=== PATIENT | male | born 1960 | race Caucasian/White ===

== ENCOUNTER 2020-03-17 11:18 | Outpatient (REF) | payer OTHER, SELFPAY ==
[2020-03-17 14:14] LABS: Estimated Average Glucose 143 mg/dL; Hemoglobin A1c % 6.6 %
[2020-03-17 14:18] LABS: Glucose Fasting 153 mg/dL (60-99)
== END 2020-03-17 11:19 | disposition home or self-care (01) ==
LOC: HO.10HDL 11:18
PROVIDERS: Visit Provider Family Medicine
DX: E11.9 Type 2 diabetes mellitus without complications (principal)
CPT/HCPCS: 82947; 83036

== ENCOUNTER → 2020-04-15 08:04 | Outpatient (BNVA) | payer OTHER, SELFPAY | PROVIDERS: PCP Family Medicine; Referring Provider Family Medicine; Visit Provider Internal Medicine Endocrinology, Diabetes & Metabolism | DX: Z13.89 Encounter for screening for other disorder (principal) | CPT/HCPCS: Q3014 ==

== ENCOUNTER 2020-05-20 10:41 | Outpatient (REF) | payer OTHER, SELFPAY ==
[2020-05-20 14:40] LABS: Anion Gap 15 (12-20); Blood Urea Nitrogen 16 mg/dL (9-16); Carbon Dioxide 24 mmol/L (22-29); Chloride 102 mmol/L (96-108); Estimated Glomerular Filt Rate > 60; Potassium 4.7 mmol/l (3.3-5.1); Sodium 136 mmol/L (135-145)
== END 2020-05-20 10:42 | disposition home or self-care (01) ==
LOC: HO.10HDL 10:41
PROVIDERS: Absent Provider Internal Medicine Cardiovascular Disease; PCP Family Medicine; Visit Provider Family Medicine
DX: I10 Essential (primary) hypertension (principal)
CPT/HCPCS: 36415; 80051; 82565; 84520

== ENCOUNTER 2020-07-14 09:55 | Outpatient (REF) | payer OTHER, SELFPAY ==
[2020-07-14 11:37] LABS: Alanine Aminotransferase 38 U/L (0-40); Albumin Level 4.1 g/dL (3.5-5.0); Alkaline Phosphatase 74 U/L (39-117); Anion Gap 12 (12-20); Aspartate Amino Transferase 28 U/L (5-37); Bilirubin Total 0.5 mg/dL (0.0-1.0); Blood Urea Nitrogen 16 mg/dL (9-16); Calcium 8.6 mg/dL (8.4-10.2); Carbon Dioxide 25 mmol/L (22-29); Chloride 105 mmol/L (96-108); Cholesterol 156 mg/dL; Estimated Glomerular Filt Rate > 60; Glucose Fasting 183 mg/dL (60-99); HDL Cholesterol 29 mg/dL; Potassium 4.4 mmol/L (3.3-5.1); Sodium 138 mmol/L (135-145); Total Protein 6.8 g/dL (6.5-8.0); Triglycerides 519 mg/dL
[2020-07-15 21:12] LABS: LDL Cholesterol Direct 47 mg/dL (<100)
== END 2020-07-14 09:56 | disposition home or self-care (01) ==
LOC: HO.10HDL 09:55
PROVIDERS: Visit Provider Internal Medicine Endocrinology, Diabetes & Metabolism
DX: E11.9 Type 2 diabetes mellitus without complications (principal)
CPT/HCPCS: 36415; 80053; 80061; 83721

== ENCOUNTER → 2020-07-15 09:52 | Outpatient (BNVA) | payer OTHER, SELFPAY | PROVIDERS: PCP Family Medicine; Visit Provider Internal Medicine Endocrinology, Diabetes & Metabolism | DX: E11.40 Type 2 diabetes mellitus with diabetic neuropathy, unspecified (principal); E11.21 Type 2 diabetes mellitus with diabetic nephropathy; Z79.4 Long term (current) use of insulin; E78.5 Hyperlipidemia, unspecified; E66.9 Obesity, unspecified | CPT/HCPCS: 82947; 99212 ==

== ENCOUNTER → 2020-10-15 09:52 | Outpatient (BNVA) | payer OTHER, SELFPAY | PROVIDERS: PCP Family Medicine; Visit Provider Internal Medicine Endocrinology, Diabetes & Metabolism | DX: E11.65 Type 2 diabetes mellitus with hyperglycemia (principal); E11.42 Type 2 diabetes mellitus with diabetic polyneuropathy; E11.21 Type 2 diabetes mellitus with diabetic nephropathy; E78.5 Hyperlipidemia, unspecified; E66.9 Obesity, unspecified; Z79.4 Long term (current) use of insulin | CPT/HCPCS: 82947; 99212 ==

== ENCOUNTER 2021-01-10 07:12 | Outpatient (REF) | payer OTHER, SELFPAY ==
[2021-01-10 08:21] LABS: Alanine Aminotransferase 35 U/L (0-40); Anion Gap 11 (12-20); Blood Urea Nitrogen 15 mg/dL (9-16); Carbon Dioxide 26 mmol/L (22-29); Chloride 106 mmol/L (96-108); Estimated Glomerular Filt Rate > 60; Glucose Fasting 171 mg/dL (60-99); Potassium 4.2 mmol/L (3.3-5.1); Sodium 139 mmol/L (135-145)
[2021-01-10 08:32] LABS: Estimated Average Glucose 197 mg/dL; Hemoglobin A1c % 8.5 %
== END 2021-01-10 07:13 | disposition home or self-care (01) ==
LOC: HO.LAB 07:12
PROVIDERS: PCP Family Medicine; Visit Provider Family Medicine
DX: E11.9 Type 2 diabetes mellitus without complications (principal); I10 Essential (primary) hypertension; E78.00 Pure hypercholesterolemia, unspecified; Z79.899 Other long term (current) drug therapy
CPT/HCPCS: 36415; 80051; 82565; 82947; 83036; 84460; 84520

== ENCOUNTER → 2021-01-22 10:03 | Outpatient (BNVA) | payer OTHER, SELFPAY | PROVIDERS: PCP Family Medicine; Visit Provider Nurse Practitioner Gerontology | DX: E11.65 Type 2 diabetes mellitus with hyperglycemia (principal); E11.42 Type 2 diabetes mellitus with diabetic polyneuropathy; E11.21 Type 2 diabetes mellitus with diabetic nephropathy; E78.5 Hyperlipidemia, unspecified; E66.9 Obesity, unspecified; Z79.4 Long term (current) use of insulin | CPT/HCPCS: 82947; 99212 ==

== ENCOUNTER → 2021-02-12 10:36 | Outpatient (BNVA) | payer OTHER, SELFPAY | PROVIDERS: PCP Family Medicine; Visit Provider Dietitian, Registered | DX: E11.42 Type 2 diabetes mellitus with diabetic polyneuropathy (principal) | CPT/HCPCS: 97803 ==

== ENCOUNTER → 2021-03-26 11:31 | Outpatient (BNVA) | payer OTHER, SELFPAY | PROVIDERS: PCP Family Medicine; Visit Provider Dietitian, Registered | DX: E11.42 Type 2 diabetes mellitus with diabetic polyneuropathy (principal) | CPT/HCPCS: 97803 ==

== ENCOUNTER 2021-04-18 16:28 | Emergency (ER) | payer OTHER, SELFPAY ==
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
[2021-04-18 17:11] VITALS: BP 160/92; PULSE 94
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
[2021-04-18 17:33] VITALS: PULSE 83; RESP 20; O2SAT 97; BMI 36.4
[2021-04-18] MEDS: LORazepam 1 MG TABLET PO (17:54)
== END 2021-04-18 18:41 | disposition home or self-care (01) ==
LOC: HO.ED 18:34
PROVIDERS: Emergency Provider Internal Medicine; PCP Family Medicine
DX: S09.90XA Unspecified injury of head, initial encounter (principal); S13.4XXA Sprain of ligaments of cervical spine, initial encounter; V43.52XA Car driver injured in collision with other type car in traffic accident, initial encounter; Y93.89 Activity, other specified; Y92.414 Local residential or business street as the place of occurrence of the external cause; Y99.9 Unspecified external cause status
CPT/HCPCS: 70450; 72125; 99283; 99284

== ENCOUNTER 2021-06-10 10:34 | Outpatient (REF) | payer OTHER, SELFPAY ==
[2021-06-10 14:50] LABS: Creatinine Urine 198.83 mg/dL
[2021-06-10 15:01] LABS: Alanine Aminotransferase 35 U/L (0-40); Albumin Level 4.3 g/dL (3.5-5.0); Alkaline Phosphatase 85 U/L (39-117); Anion Gap 15 (12-20); Aspartate Amino Transferase 32 U/L (5-37); Bilirubin Total 0.2 mg/dL (0.0-1.0); Blood Urea Nitrogen 17 mg/dL (9-16); Calcium 9.5 mg/dL (8.4-10.2); Carbon Dioxide 22 mmol/L (22-29); Chloride 106 mmol/L (96-108); Cholesterol 153 mg/dL; Estimated Glomerular Filt Rate > 60; Glucose Fasting 208 mg/dL (60-99); HDL Cholesterol 27 mg/dL; Potassium 4.3 mmol/L (3.3-5.1); Sodium 139 mmol/L (135-145); Total Protein 7.4 g/dL (6.5-8.0); Triglycerides 452 mg/dL
[2021-06-10 15:06] LABS: Microalbum/Creatinine Ratio Ur 591.9 ug/mg cr
[2021-06-11 03:07] LABS: LDL Cholesterol Direct 48 mg/dL (<100)
== END 2021-06-10 10:35 | disposition home or self-care (01) ==
LOC: HO.10HDL 10:34
PROVIDERS: Visit Provider Nurse Practitioner Gerontology
DX: E11.65 Type 2 diabetes mellitus with hyperglycemia (principal); E78.5 Hyperlipidemia, unspecified; E55.9 Vitamin D deficiency, unspecified; I10 Essential (primary) hypertension; Z79.4 Long term (current) use of insulin
CPT/HCPCS: 36415; 80053; 80061; 82043; 82947; 83036; 83721; 99212

== ENCOUNTER → 2021-06-26 10:29 | Outpatient (BNVA) | payer OTHER, SELFPAY | PROVIDERS: PCP Family Medicine; Visit Provider Dietitian, Registered | DX: E11.42 Type 2 diabetes mellitus with diabetic polyneuropathy (principal); Z71.3 Dietary counseling and surveillance | CPT/HCPCS: 97803 ==

== ENCOUNTER 2021-07-20 12:30 | Outpatient (REF) | payer OTHER, SELFPAY ==
[2021-07-20 14:42] LABS: Alanine Aminotransferase 37 U/L (0-40); Anion Gap 12 (12-20); Aspartate Amino Transferase 38 U/L (5-37); Blood Urea Nitrogen 12 mg/dL (9-16); Carbon Dioxide 26 mmol/L (22-29); Chloride 105 mmol/L (96-108); Estimated Glomerular Filt Rate > 60; Potassium 4.4 mmol/L (3.3-5.1); Sodium 139 mmol/L (135-145)
== END 2021-07-20 12:31 | disposition home or self-care (01) ==
LOC: HO.10HDL 12:30
PROVIDERS: Visit Provider Family Medicine
DX: I10 Essential (primary) hypertension (principal); E78.00 Pure hypercholesterolemia, unspecified; Z79.899 Other long term (current) drug therapy
CPT/HCPCS: 36415; 80051; 82550; 82565; 84450; 84460; 84520

== ENCOUNTER 2021-09-09 08:54 | Outpatient (REF) | payer OTHER, SELFPAY ==
[2021-09-09 11:07] LABS: Estimated Average Glucose 214 mg/dL; Hemoglobin A1c % 9.1 %
[2021-09-09 11:09] LABS: Alanine Aminotransferase 27 U/L (0-40); Albumin Level 4.2 g/dL (3.5-5.0); Alkaline Phosphatase 86 U/L (39-117); Anion Gap 10 (12-20); Aspartate Amino Transferase 25 U/L (5-37); Bilirubin Total 0.3 mg/dL (0.0-1.0); Blood Urea Nitrogen 15 mg/dL (9-16); Calcium 8.5 mg/dL (8.4-10.2); Carbon Dioxide 22 mmol/L (22-29); Chloride 106 mmol/L (96-108); Cholesterol 137 mg/dL; Estimated Glomerular Filt Rate > 60; Glucose Random 215 mg/dL (60-115); HDL Cholesterol 31 mg/dL; LDL Cholesterol Calculated 67 mg/dl; Potassium 4.4 mmol/L (3.3-5.1); Sodium 134 mmol/L (135-145); Triglycerides 199 mg/dL
[2021-09-09 11:31] LABS: Vitamin D 25-OH Total 20.7 ng/mL (>30)
[2021-09-09 12:55] LABS: Creatinine Urine 191.91 mg/dL; Microalbum/Creatinine Ratio Ur 121.4 ug/mg cr
[2021-09-11 01:41] LABS: LDL Cholesterol Direct 74 mg/dL (<100)
== END 2021-09-09 08:55 | disposition home or self-care (01) ==
LOC: HO.10HDL 08:54
PROVIDERS: Internal Medicine; PCP Family Medicine; Visit Provider Nurse Practitioner Gerontology
DX: E11.65 Type 2 diabetes mellitus with hyperglycemia (principal); E11.42 Type 2 diabetes mellitus with diabetic polyneuropathy; E11.21 Type 2 diabetes mellitus with diabetic nephropathy; E78.5 Hyperlipidemia, unspecified; E66.9 Obesity, unspecified; Z79.4 Long term (current) use of insulin
CPT/HCPCS: 36415; 80053; 80061; 82043; 82306; 82947; 83036; 83721; 99212

== ENCOUNTER → 2021-09-23 09:19 | Outpatient (BNVA) | payer OTHER, SELFPAY | PROVIDERS: PCP Family Medicine; Visit Provider Dietitian, Registered | DX: E11.42 Type 2 diabetes mellitus with diabetic polyneuropathy (principal) | CPT/HCPCS: 97803 ==

== ENCOUNTER → 2021-10-09 08:52 | Outpatient (BNVA) | payer OTHER, SELFPAY | PROVIDERS: PCP Family Medicine; Visit Provider Registered Nurse Diabetes Educator | DX: E11.65 Type 2 diabetes mellitus with hyperglycemia (principal); Z79.4 Long term (current) use of insulin | CPT/HCPCS: 99211 ==

== ENCOUNTER → 2021-10-23 09:28 | Outpatient (BNVA) | payer OTHER, SELFPAY | PROVIDERS: PCP Family Medicine; Visit Provider Registered Nurse Diabetes Educator | DX: E11.9 Type 2 diabetes mellitus without complications (principal) | CPT/HCPCS: 95250 ==

== ENCOUNTER → 2021-11-10 09:10 | Outpatient (BNVA) | payer OTHER, SELFPAY | PROVIDERS: PCP Family Medicine; Visit Provider Nurse Practitioner Gerontology | DX: E11.65 Type 2 diabetes mellitus with hyperglycemia (principal); E11.42 Type 2 diabetes mellitus with diabetic polyneuropathy; E11.21 Type 2 diabetes mellitus with diabetic nephropathy; E78.5 Hyperlipidemia, unspecified; E66.9 Obesity, unspecified; Z68.34 Body mass index [BMI] 34.0-34.9, adult; Z79.4 Long term (current) use of insulin | CPT/HCPCS: 82947; 99212 ==

== ENCOUNTER 2021-11-11 10:56 | Outpatient (REF) | payer OTHER, SELFPAY ==
[2021-11-11 13:53] LABS: Anion Gap 11 (12-20); Blood Urea Nitrogen 17 mg/dL (9-16); Calcium 8.8 mg/dL (8.4-10.2); Carbon Dioxide 25 mmol/L (22-29); Chloride 105 mmol/L (96-108); Estimated Glomerular Filt Rate > 60; Glucose Fasting 188 mg/dL (60-99); Potassium 4.4 mmol/L (3.3-5.1); Sodium 137 mmol/L (135-145)
[2021-11-13 01:52] LABS: C Peptide 2.92 ng/mL (0.80-3.85)
[2021-11-15 21:21] LABS: Glutamic acid decarboxylase Ab <5 IU/mL (<5)
[2021-11-23 22:17] LABS: Islet Cell Antibody Screen NEGATIVE (NEGATIVE)
== END 2021-11-11 10:57 | disposition home or self-care (01) ==
LOC: HO.10HDL 10:56
PROVIDERS: Visit Provider Nurse Practitioner Gerontology
DX: E11.65 Type 2 diabetes mellitus with hyperglycemia (principal)
CPT/HCPCS: 36415; 80048; 84681; 86255; 86341

== ENCOUNTER → 2021-12-24 10:24 | Outpatient (BNVA) | payer OTHER, SELFPAY | PROVIDERS: PCP Family Medicine; Visit Provider Dietitian, Registered | DX: E11.65 Type 2 diabetes mellitus with hyperglycemia (principal); E11.42 Type 2 diabetes mellitus with diabetic polyneuropathy; E11.21 Type 2 diabetes mellitus with diabetic nephropathy; Z79.4 Long term (current) use of insulin; Z71.3 Dietary counseling and surveillance | CPT/HCPCS: 97803 ==

== ENCOUNTER → 2022-01-04 10:54 | Outpatient (BNVA) | payer OTHER, SELFPAY | PROVIDERS: PCP Family Medicine; Visit Provider Registered Nurse Diabetes Educator | DX: E11.65 Type 2 diabetes mellitus with hyperglycemia (principal); E11.42 Type 2 diabetes mellitus with diabetic polyneuropathy; E11.21 Type 2 diabetes mellitus with diabetic nephropathy; I10 Essential (primary) hypertension; E78.5 Hyperlipidemia, unspecified; E55.9 Vitamin D deficiency, unspecified; E66.9 Obesity, unspecified; Z79.4 Long term (current) use of insulin | CPT/HCPCS: 99211 ==

== ENCOUNTER → 2022-02-01 09:30 | Outpatient (BNVA) | payer OTHER, SELFPAY | PROVIDERS: PCP Family Medicine; Visit Provider Registered Nurse Diabetes Educator | DX: E11.65 Type 2 diabetes mellitus with hyperglycemia (principal); Z79.4 Long term (current) use of insulin | CPT/HCPCS: 99211 ==

== ENCOUNTER → 2022-02-08 13:57 | Outpatient (BNVA) | payer OTHER, SELFPAY | PROVIDERS: PCP Family Medicine; Visit Provider Internal Medicine | DX: E11.65 Type 2 diabetes mellitus with hyperglycemia (principal); E78.5 Hyperlipidemia, unspecified; E55.9 Vitamin D deficiency, unspecified; I10 Essential (primary) hypertension; Z79.4 Long term (current) use of insulin | CPT/HCPCS: 82947; 83036; 99212 ==

== ENCOUNTER 2022-02-09 11:23 | Outpatient (REF) | payer OTHER, SELFPAY | END 2022-02-09 11:24 | disposition home or self-care (01) | LOC: HO.LAB 11:23 | PROVIDERS: Visit Provider Surgery | DX: L02.91 Cutaneous abscess, unspecified (principal); L72.0 Epidermal cyst | CPT/HCPCS: 10060; 87070; 87205; 99202 ==

== ENCOUNTER → 2022-02-24 10:31 | Outpatient (BNVA) | payer OTHER, SELFPAY | PROVIDERS: PCP Family Medicine; Visit Provider Registered Nurse Diabetes Educator | DX: E11.65 Type 2 diabetes mellitus with hyperglycemia (principal); Z79.4 Long term (current) use of insulin | CPT/HCPCS: 99211 ==

== ENCOUNTER 2022-03-16 13:58 | Outpatient (REF) | payer OTHER, SELFPAY ==
[2022-03-16 14:12] VITALS: BMI 33.7
[2022-03-16 14:13] VITALS: BP 112/83; PULSE 85; RESP 16; TEMP 36.1; O2SAT 96
[2022-03-16 14:52] VITALS: BMI 33.7
[2022-03-16 14:54] VITALS: BP 125/83; PULSE 85; RESP 16; TEMP 36.1; O2SAT 97
--- NOTE | 2022-03-16 16:01 | W.PM.OPN ---
Operative Note Operative Note Date of Service: 03/16/22 Narrative: Preoperative diagnosis: Infected epidermal inclusion cyst posterior left neck/scalp Postoperative diagnosis: Same Procedure: Excision of epidermal inclusion cyst posterior left neck Surgeon: Bebo Bailey MD Mechanical Engineering Manager: CLEM Loco Anesthesia: Sensorcaine 0.5% with epinephrine Indications for procedure: 61-year-old male patient presenting with a recent infection of a epidermal inclusion cyst of the posterior neck. He previously underwent excision of this lesion and returns today for excision of the cyst. Operative findings: Residual cyst located in the lateral neck measuring approximately 2 cm in diameter. Specimen: Epidermal inclusion cyst left neck Estimated blood loss: 10 mL Complications: None Procedure details: Patient was placed in a prone position with neck turned to the left. The site of surgery was confirmed by the patient in the left neck. After assuring informed consent the skin was prepped with Betadine and draped in a sterile fashion. Local anesthesia was then infiltrated in elliptical fashion around the cyst oriented transversely. Elliptical incision was then created with a scalpel carried out through subcutaneous tissue. Incision was carried down into the subcutaneous tissue around the cyst wall. The lesion was completely excised sent to pathology for further examination. Hemostasis was assured using light pressure. Deep subcutaneous and dermis were reapproximated using interrupted 3-0 Polysorb sutures. Skin was then closed using interrupted 4-0 nylon sutures. Sterile dressings were then applied. The patient tolerated the procedure well. He was discharged to home in stable condition.
== END 2022-03-16 13:59 | disposition home or self-care (01) ==
LOC: HO.MS 13:58
PROVIDERS: PCP Family Medicine; Visit Provider Surgery
PROC: (CPT 11422; principal; 2022-03-16 14:10)
DX: L72.0 Epidermal cyst (principal)
CPT/HCPCS: 11422; 12041; 88304

== ENCOUNTER → 2022-03-24 10:08 | Outpatient (BNVA) | payer OTHER, SELFPAY | PROVIDERS: PCP Family Medicine; Referring Provider Family Medicine; Visit Provider Surgery | DX: Z48.02 Encounter for removal of sutures (principal); L72.11 Pilar cyst | CPT/HCPCS: 99211 ==

== ENCOUNTER → 2022-03-29 10:38 | Outpatient (BNVA) | payer OTHER, SELFPAY | PROVIDERS: PCP Family Medicine; Visit Provider Dietitian, Registered | DX: E11.42 Type 2 diabetes mellitus with diabetic polyneuropathy (principal) | CPT/HCPCS: 97803 ==

== ENCOUNTER → 2022-03-30 10:35 | Outpatient (BNVA) | payer OTHER, SELFPAY | PROVIDERS: PCP Family Medicine; Visit Provider Registered Nurse Diabetes Educator | DX: E11.65 Type 2 diabetes mellitus with hyperglycemia (principal); Z79.4 Long term (current) use of insulin | CPT/HCPCS: 99211 ==

== ENCOUNTER → 2022-03-31 15:02 | Outpatient (BNVA) | payer OTHER, SELFPAY | PROVIDERS: PCP Family Medicine; Referring Provider Family Medicine; Visit Provider Internal Medicine Cardiovascular Disease | DX: R07.9 Chest pain, unspecified (principal); R00.2 Palpitations; I10 Essential (primary) hypertension | CPT/HCPCS: 93005; 99202 ==

== ENCOUNTER → 2022-05-03 10:29 | Outpatient (BNVA) | payer OTHER, SELFPAY | PROVIDERS: PCP Family Medicine; Visit Provider Registered Nurse Diabetes Educator | DX: E11.65 Type 2 diabetes mellitus with hyperglycemia (principal); Z79.4 Long term (current) use of insulin | CPT/HCPCS: 99211 ==

== ENCOUNTER → 2022-06-18 08:00 | Outpatient (REF) | payer OTHER, SELFPAY ==
--- NOTE | 2022-06-18 08:05 | HM_ITS ---
conclusion: 1. Patient was monitored for total period of 6 days and 23 hours 2. Baseline rhythm is normal sinus rhythm with average heart of 75 beats per minute 3. Rare PACs and PVCs noted 4. No significant bradycardia or pauses noted 5. No patient reported events MTDD
--- NOTE | 2022-06-18 08:05 | CA_ITS ---
Transthoracic Echocardiogram Patient (Last, First, Middle): Octavio Elder, Gender: Male Date of : 1960 Age: 61 Procedure Date: 06/18/2022 Procedure Type: Transthoracic Echocardiogram Location: OP Height: 175.26 cm Weight: 103.87 kg BSA: 2.19 m2 Heart Rate: bpm BP: 130 / 70 mmHg Manager Intelligence: Referring MD: Guy Anderson MD Technician Automatic: Guy Anderson MD Symptoms: R00.2 - Palpitations Study Quality: Fair/Contrast Conclusions: - Normal left ventricular size and systolic function. There is mildly increased left ventricular wall thickness. The visually estimated ejection fraction is between 55-60%. - The apex and apical anterior segments are akinetic. - Normal right ventricular cavity size and systolic function. RV size is borderline increased. Findings Procedure Information Contrast agent, definity, is being given per protocol without apparent complications. Left Ventricle Normal left ventricular size and systolic function. There is mildly increased left ventricular wall thickness. The visually estimated ejection fraction is between 55-60%. There is evidence of regional wall motion abnormalities. Abnormal diastolic function is noted. Spectral Doppler is indicative of an impaired relaxation filling pattern. E/E prime ratio is between 8 and 15 consistent with indeterminate filling pressures. Wall Motion Rest Echo Findings The apex and apical anterior segments are akinetic. Right Ventricle Normal right ventricular cavity size and systolic function. RV size is borderline increased. Atria The left atrium is mildly dilated. The right atrium was not well visualized. Aortic Valve Normal aortic valve structure and function. There is no aortic valve stenosis. There is trace (trivial) aortic valve regurgitation. Mitral Valve The mitral valve appears normal. There is no mitral valve regurgitation. There is no mitral valve stenosis. Pulmonic Valve The pulmonic valve is likely normal. Tricuspid Valve Normal tricuspid valve structure and function. Normal right atrial pressure. There is no evidence of pulmonary hypertension. Great Vessels There is mild dilatation of the ascending aorta measuring 3.90 cm. The visualized portions of the pulmonary artery and branches are normal. Venous The inferior vena cava is normal in size and collapses greater than 50% with inspiration. Pericardium/Pleural Prominent epicardial adipose tissue noted. There is no evidence of pericardial effusion. Prior Study Comparison Changes noted compared to prior study dated: 06/24/2017. EF normal. [place] and apical anterior segments are akinetic. Measurements 2D Linear Measurements IVSd: 1.21 0.6-0.9/0.6-1.0 cm LVIDd: 5.01 3.9-5.3/4.2-5.9 cm LVIDd Index: 2.29 2.4-3.2/2.2-3.1 cm/m2 LVIDs: 3.13 2.0-3.6 cm LVPWd: 1.21 0.7-1.1 cm Ao Root: 4.00 2.1-3.5 cm LA Diam: 3.80 2.7-3.8/3.0-4.0 cm LAIDs Index: 1.74 1.5-2.3 cm/m2 LV Mass: 295.80 67-162/88-224 g LV Mass Index: 135.07 43-95/49-115 g/m2 LVOT Diam: 2.10 3.0+(-)1.3 cm 2D Systolic Function EF 4C: 57.10 >55% EF 2C: 63.50 >55% EF BiP: 59.20 >55% Mitral Valve MV Pk E: 0.70 MV PK A: 0.96 MV Decel Time: 144.00 E/A: 0.70 E'Lateral: 11.40 E'Medial: 5.77 E/E' Med: 12.20 E/E' Lat: 6.20 PHT: 42.00 MVA PHT: 5.24 Decel Peñuel[place]: 4.87 Aortic Valve AoV Pk Jose A: 1.32 AoV Mn Jose A: 0.90 AoV VTI: 0.27 AoV Pk Grad: 7.00 Aov Mn Grad: 4.00 ROBERTA Cont.VTI: 2.78 LVOT LVOT Pk Jose A: 1.06 LVOT Mn Jose A: 0.71 LVOT VTI: 0.22 LVOT Pk Grad: 4.00 LVOT Mn Grad: 2.00 LVOT Diam: 2.10 LVOT Area: 3.46 Diastolic Function MV Pk E: 0.70 MV Pk A: 0.96 E/A: 0.70 E'Medial: 5.77 E/E' Med: 12.20 E' Laterial: 11.40 E/E' Lat: 6.20 Right Ventricle TAPSE (mm): 25.90 Tricuspid Valve TR Pk Jose A: 2.43 TR Pk Grad: 24.00 Great Vessels Aorta Ao Root-2D: 4.00 2.0-3.7 cm Ao Asc: 3.90 2.1-3.4 cm Pulmonary Valve PV Pk Jose A: 0.95 Peak PV Grad: 4.00 Updated in Other Vendor System with Status of Final Guy Anderson MD electronically signed on 06/20/2022 2:03:39 PM with status of Final
== END ==
LOC: HO.CARD 08:00
PROVIDERS: PCP Family Medicine; Visit Provider Internal Medicine Cardiovascular Disease
DX: R00.2 Palpitations (principal)
CPT/HCPCS: 93242; 93306; Q9957

== ENCOUNTER 2022-06-24 11:43 | Outpatient (REF) | payer OTHER, SELFPAY ==
[2022-06-24 13:38] LABS: MANUAL DIFF FLAG NO
[2022-06-24 13:43] LABS: Basophils Absolute Auto 0.1 X10*3/uL (0.0-0.2); Basophils Percent Auto 0.8 % (0-2); Eosinophils Absolute Auto 0.2 X10*3/uL (0.0-0.4); Eosinophils Percent Auto 2.7 % (0-4); Hematocrit 42.3 % (42.0-52.0); Hemoglobin 14.2 g/dl (14.0-18.0); Imm Gran Abs Auto 0.02 X10*3/uL (0.00-0.03); Imm Gran Pct Auto 0.3 % (0.0-0.4); Lymphocytes Absolute Auto 2.4 X10*3/uL (1.2-4.9); Lymphocytes Percent Auto 35.7 % (20-40); Mean Corpuscular HGB Conc 33.6 g/dl (31.0-36.0); Mean Corpuscular Hemoglobin 28.4 pg (27.0-33.0); Mean Corpuscular Volume 84.6 fL (80.0-98.0); Mean Platelet Volume 9.9 fL (9.4-12.4); Monocytes Absolute Auto 0.4 X10*3/uL (0.1-1.2); Monocytes Percent Auto 6.6 % (2-11); Neutrophils Absolute Auto 3.6 x10*3/uL (2.0-8.3); Neutrophils Percent Auto 53.9 % (45-73); Platelet Count 226 X10*3/uL (160-400); Red Cell Distribution Width 13.2 % (11.0-16.0); White Blood Count 6.6 X10*3/uL (4.8-10.8)
[2022-06-24 14:06] LABS: Alanine Aminotransferase 27 U/L (0-40); Albumin Level 4.1 g/dL (3.5-5.0); Alkaline Phosphatase 77 U/L (39-117); Anion Gap 12 (12-20); Aspartate Amino Transferase 24 U/L (5-37); Bilirubin Total 0.4 mg/dL (0.0-1.0); Blood Urea Nitrogen 10 mg/dL (9-16); Calcium 8.7 mg/dL (8.4-10.2); Carbon Dioxide 23 mmol/L (22-29); Chloride 107 mmol/L (96-108); Cholesterol 148 mg/dL; Estimated Glomerular Filt Rate > 60; Glucose Random 191 mg/dL (60-115); HDL Cholesterol 35 mg/dL; LDL Cholesterol Calculated 69 mg/dl; Sodium 138 mmol/L (135-145); Total Protein 6.7 g/dL (6.5-8.0); Triglycerides 223 mg/dL
[2022-06-24 14:15] LABS: Estimated Average Glucose 226 mg/dL; Hemoglobin A1c % 9.5 %
[2022-06-24 14:21] LABS: Vitamin D 25-OH Total 17.5 ng/mL (>30)
[2022-06-24 14:26] LABS: Creatinine Urine 207.28 mg/dL; Microalbum/Creatinine Ratio Ur 175.1 ug/mg cr
[2022-06-26 05:18] LABS: LDL Cholesterol Direct 71 mg/dL (<100)
== END 2022-06-24 11:44 | disposition home or self-care (01) ==
LOC: HO.10HDL 11:43
PROVIDERS: Absent Provider Family Medicine; Visit Provider Internal Medicine
DX: I10 Essential (primary) hypertension (principal); R19.7 Diarrhea, unspecified; R53.83 Other fatigue; M06.9 Rheumatoid arthritis, unspecified; E11.65 Type 2 diabetes mellitus with hyperglycemia; E55.9 Vitamin D deficiency, unspecified; Z79.4 Long term (current) use of insulin
CPT/HCPCS: 36415; 80053; 80061; 82043; 82306; 83036; 83721; 85025

== ENCOUNTER → 2022-06-28 09:30 | Outpatient (BNVA) | payer OTHER, SELFPAY | PROVIDERS: PCP Family Medicine; Visit Provider Internal Medicine | DX: E11.65 Type 2 diabetes mellitus with hyperglycemia (principal); E11.42 Type 2 diabetes mellitus with diabetic polyneuropathy; E11.21 Type 2 diabetes mellitus with diabetic nephropathy; I10 Essential (primary) hypertension; E78.5 Hyperlipidemia, unspecified; E55.9 Vitamin D deficiency, unspecified; Z79.4 Long term (current) use of insulin; Z79.01 Long term (current) use of anticoagulants; Z79.899 Other long term (current) drug therapy | CPT/HCPCS: 82947; 99212 ==

== ENCOUNTER 2022-09-10 06:32 | Outpatient (REF) | payer OTHER, SELFPAY ==
[2022-09-10 06:45] LABS: MANUAL DIFF FLAG NO
[2022-09-10 07:09] LABS: Basophils Absolute Auto 0.1 X10*3/uL (0.0-0.2); Basophils Percent Auto 0.8 % (0-2); Eosinophils Absolute Auto 0.2 X10*3/uL (0.0-0.4); Eosinophils Percent Auto 2.3 % (0-4); Hematocrit 42.2 % (42.0-52.0); Hemoglobin 13.5 g/dl (14.0-18.0); Imm Gran Abs Auto 0.02 X10*3/uL (0.00-0.03); Imm Gran Pct Auto 0.3 % (0.0-0.4); Lymphocytes Absolute Auto 3.4 X10*3/uL (1.2-4.9); Lymphocytes Percent Auto 45.6 % (20-40); Mean Corpuscular Hemoglobin 28.4 pg (27.0-33.0); Mean Corpuscular Volume 88.7 fL (80.0-98.0); Monocytes Absolute Auto 0.7 X10*3/uL (0.1-1.2); Monocytes Percent Auto 9.2 % (2-11); Neutrophils Absolute Auto 3.1 x10*3/uL (2.0-8.3); Neutrophils Percent Auto 41.8 % (45-73); Platelet Count 240 X10*3/uL (160-400); Red Blood Count 4.76 X10*6/uL (4.60-5.80); Red Cell Distribution Width 13.6 % (11.0-16.0); White Blood Count 7.4 X10*3/uL (4.8-10.8)
[2022-09-10 08:15] LABS: Alanine Aminotransferase 21 U/L (0-40); Anion Gap 11 (12-20); Aspartate Amino Transferase 21 U/L (5-37); Blood Urea Nitrogen 12 mg/dL (9-16); Carbon Dioxide 27 mmol/L (22-29); Chloride 108 mmol/L (96-108); Estimated Glomerular Filt Rate > 60; Glucose Fasting 119 mg/dL (60-99); Sodium 142 mmol/L (135-145)
[2022-09-10 08:34] LABS: Estimated Average Glucose 166 mg/dL; Hemoglobin A1c % 7.4 %
[2022-09-10 09:28] LABS: Creatinine Urine 166.17 mg/dL; Microalbum/Creatinine Ratio Ur 53.5 ug/mg cr
== END 2022-09-10 06:33 | disposition home or self-care (01) ==
LOC: HO.LAB 06:32
PROVIDERS: Absent Provider Internal Medicine; PCP Family Medicine; Visit Provider Family Medicine
DX: I10 Essential (primary) hypertension (principal); R06.02 Shortness of breath; E11.9 Type 2 diabetes mellitus without complications; E78.00 Pure hypercholesterolemia, unspecified; Z79.899 Other long term (current) drug therapy
CPT/HCPCS: 36415; 80051; 82043; 82550; 82565; 82947; 83036; 84450; 84460; 84520; 85025

== ENCOUNTER → 2022-11-08 08:53 | Outpatient (BNVA) | payer OTHER, SELFPAY | PROVIDERS: PCP Family Medicine; Visit Provider Internal Medicine ==

== ENCOUNTER → 2023-01-03 10:42 | Outpatient (BNVA) | payer OTHER, SELFPAY | PROVIDERS: PCP Family Medicine; Visit Provider Internal Medicine | DX: E11.65 Type 2 diabetes mellitus with hyperglycemia (principal); E11.21 Type 2 diabetes mellitus with diabetic nephropathy; E11.40 Type 2 diabetes mellitus with diabetic neuropathy, unspecified; Z79.4 Long term (current) use of insulin | CPT/HCPCS: 82947; 83036 ==

== ENCOUNTER 2023-01-03 11:54 | Outpatient (AMB) | payer OTHER, SELFPAY ==
--- NOTE | 2023-01-03 10:42 | MHC.OFFVIS ---
Intake Intake Visit Reasons: dm Intake Note: Diabete Mellitus Follow up visit Eye Exam: November 2022 Foot Exam: approx 2months Hand Salter Required: No Allergies morphine [MORPHINE] Allergy (Severe, Verified 01/03/23 11:07) PT STATES FLAT-LINED -WAS IN W/CP Medication List - Last Reconciled 01/03/23 by Cassidy Sinha DO acetaminophen (Tylenol Extra Strength) 1,000 mg (2 x 500 mg) PO QID PRN albuterol sulfate 90 mcg/actuation (Ventolin HFA) 2 puffs inhalation Q6H PRN alendronate 70 mg PO QWEEK amitriptyline 25 mg PO BEDTIME aspirin (Adult Low Dose Aspirin) 81 mg PO DAILY blood sugar diagnostic (FreeStyle Lite Strips) 4 times a day blood-glucose meter (FreeStyle Lite Meter kit) 4 times a day blood-glucose meter (FreeStyle [place] Lite kit) As directed calcium carbonate-vitamin D3 500 mg-15 mcg (600 unit) 1 tab PO DAILY cholecalciferol (vitamin D3) 50 mcg PO DAILY 30 days ezetimibe 10 mg PO DAILY insulin aspart U-100 (Novolog FlexPen U-100 Insulin aspart) Up to a total daily dose of 75 units per day subcutaneously daily; 90 days MDD 75 insulin degludec (Tresiba FlexTouch U-200 insulin) 50 units subcut BEDTIME lancets (FreeStyle Lancets) 4 times a day leflunomide 20 mg PO DAILY lisinopril 5 mg PO DAILY metoprolol succinate ER 100 mg PO DAILY omega-3 acid ethyl esters 1 cap PO BID omeprazole 20 mg PO DAILY ondansetron HCl (Zofran) 4 mg PO Q8H PRN pen needle, diabetic (BD Mariah 2nd Gen Pen Needle) 1 ea miscellaneous .5 times a day 30 days pregabalin (Lyrica) 50 mg PO BEDTIME primidone 250 mg PO BID rosuvastatin 40 mg PO DAILY semaglutide (Ozempic) 1 mg (0.75 mL) subcut QWEEK 4 weeks sertraline 50 mg PO DAILY trazodone 50 mg PO BEDTIME warfarin 5 mg PO HPI HPI Comments History of Present Illness Details Called patient multiple times, no answer. 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 Mother FH: ovarian cancer in first degree relative Diabetes Social History Alcohol intake: former Patient Tobacco Use Status: Former Tobacco user Years Smoked: quit at 31 years old Substance Use Type: Marijuana Assessment & Plan Assessment & Plan Medications: Changed From insulin degludec (Tresiba FlexTouch U-200 insulin) 46 units (0.23 mL) subcut BEDTIME 27 mL 1RF 90 days To insulin degludec (Tresiba FlexTouch U-200 insulin) 50 units subcut BEDTIME Coding Level of Care Code Left Without Being Seen Diagnoses
[2023-01-03 12:06] LABS: Glucose, Whole Blood 176 mg/dL (60-115)
== END 2023-01-03 12:25 | disposition home or self-care (01) ==
PROVIDERS: PCP Family Medicine; Visit Provider Internal Medicine
DX: E11.9 Type 2 diabetes mellitus without complications (principal)

== ENCOUNTER 2023-04-26 12:52 | Outpatient (REF) | payer OTHER, SELFPAY ==
[2023-04-26 14:09] LABS: Estimated Average Glucose 183 mg/dL
[2023-04-26 14:35] LABS: Anion Gap 14 (12-20); Blood Urea Nitrogen 16 mg/dL (9-16); Carbon Dioxide 24 mmol/L (22-29); Chloride 106 mmol/L (96-108); Estimated Glomerular Filt Rate > 60; Glucose Fasting 157 mg/dL (60-99); Potassium 4.5 mmol/L (3.3-5.1); Sodium 139 mmol/L (135-145)
== END 2023-04-26 12:53 | disposition home or self-care (01) ==
LOC: HO.10HDL 12:52
PROVIDERS: Visit Provider Family Medicine
DX: E11.9 Type 2 diabetes mellitus without complications (principal); I10 Essential (primary) hypertension
CPT/HCPCS: 36415; 80051; 82565; 82947; 83036; 84520

== ENCOUNTER 2023-08-15 13:44 | Outpatient (AMB) | payer OTHER, SELFPAY ==
--- NOTE | 2023-08-15 13:48 | MHC.OFFVIS ---
Intake Vital Signs 08/15/23 13:53 Height 5 ft 9 in Weight 235 lb 3.732 oz BMI 34.7 BP 114/74 Blood Pressure Location Lt brachial Position Sitting Pulse 81 Pulse Source Pulse Oximeter Intake Visit Reasons: DM/-confirmed Intake Note: Patient presents today to follow up on D2MT. Previously seen by Dr. Barrett on 01/03/23. 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: No Accompanied by: Self / Same As Patient Allergies morphine [MORPHINE] Allergy (Severe, Verified 08/15/23 13:53) PT STATES FLAT-LINED -WAS IN W/CP Medication List - Last Reconciled 08/15/23 by Clark Patel MD acetaminophen (Tylenol Extra Strength) 1,000 mg (2 x 500 mg) PO QID PRN albuterol sulfate 90 mcg/actuation (Ventolin HFA) 2 puffs inhalation Q6H PRN alendronate 70 mg PO QWEEK amitriptyline 25 mg PO BEDTIME aspirin (Adult Low Dose Aspirin) 81 mg PO DAILY blood sugar diagnostic (FreeStyle Lite Strips) 4 times a day blood-glucose meter (FreeStyle Lite Meter kit) 4 times a day blood-glucose meter (FreeStyle [place] Lite kit) As directed calcium carbonate-vitamin D3 500 mg-15 mcg (600 unit) 1 tab PO DAILY cholecalciferol (vitamin D3) 50 mcg PO DAILY ezetimibe 10 mg PO DAILY insulin aspart U-100 (Novolog FlexPen U-100 Insulin aspart) Up to a total daily dose of 75 units per day subcutaneously daily; 90 days MDD 75 insulin degludec (Tresiba FlexTouch U-200 insulin) 50 units subcut BEDTIME lancets (FreeStyle Lancets) 4 times a day leflunomide 20 mg PO DAILY lisinopril 5 mg PO DAILY metoprolol succinate ER 100 mg PO DAILY omega-3 acid ethyl esters 1 cap PO BID omeprazole 20 mg PO DAILY ondansetron HCl (Zofran) 4 mg PO Q8H PRN pen needle, diabetic (BD Mariah 2nd Gen Pen Needle) 1 ea miscellaneous .5 times a day 30 days pregabalin (Lyrica) 50 mg PO BEDTIME primidone 250 mg PO BID rosuvastatin 40 mg PO DAILY semaglutide (Ozempic) 1 mg (0.75 mL) subcut QWEEK sertraline 50 mg PO DAILY trazodone 50 mg PO BEDTIME warfarin 5 mg PO HPI HPI Comments History of Present Illness Details 62 YO M with PMHx T2DM, HTN, HLD who is seen in F/U for T2DM. Patient last saw Dr. Barrett on 01/03/2023 Initially diagnosed with T2DM in 2013 when he was admitted to the ICU with HHS. Was initially started on treatment with insulin, and has only been treated with insulin. He was also treated with Metformin, but developed GI distress with this and it was stopped. Initially he reported a history of pancreatitis, but he is denying this now. He has a solitary kidney and has not tried an SLGT-2. Current regimen Tresiba 50 units qHS and Novolog 14//18 units with breakfast, lunch and dinner respectively and 4 units with snacks, plus Ozempic 1.0 mg once a week. Uses CGM Dexcom. 14 days of data downloaded from 08/02/2023 through 08/15/2023 . This reveals an average glucose of 224 , with SD of 22.7. He is at goal 24% of the time, and above goal 76% of the time. He is below goal 0% of the time. Pattern shows increase point cares after lunch and after dinner with declining point cares overnight Reports low sugars rarely, no more than once a month. Has symptoms of tremors and lightheadedness with sugars less than 100. Treats lows with sugar or candy. Checks sugar after to ensure it is rising. Treats according to rule of 15's. Family history of T2DM in his Mother. Has eyes checked yearly, last eye exam 09/2023 - needs to make appt , denies retinopathy. Has neuropathy,, sees podiatry. Has nephropathy, on Lisinopril 5 mg PO daily. UAC 175.1 06/24/2022. Has HLD, on Rosuvastatin 40 mg PO daily and Zetia 10 mg PO daily. Last LDL 71 06/24/2022. Has CAD. Diet: Follows a low carb diet. Weight: Stable Had diabetes education. Labs: Laboratory Tests 06/24/22 06/24/22 06/24/22 10:50 11:50 11:50 Sodium 138 Potassium 4.0 Creatinine 0.85 Estimated GFR > 60 Hemoglobin A1c % 9.5 AST 24 ALT 27 LDL Cholesterol Di rect HDL Cholesterol 35 25-OH Vitamin D To demian 17.5 Microalb/Creat Rat io 175.1 06/24/22 11:50 Sodium Potassium Creatinine Estimated GFR Hemoglobin A1c % AST ALT LDL Cholesterol Di rect 71 HDL Cholesterol 25-OH Vitamin D To demian Microalb/Creat Rat io PFSH Medical History Diabetes type 2, uncontrolled Diabetic nephropathy associated with type 2 diabetes mellitus Diabetic neuropathy associated with type 2 diabetes mellitus Dyslipidemia HLD (hyperlipidemia) HTN (hypertension) 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 Mother FH: ovarian cancer in first degree relative Diabetes Social History Alcohol intake: former Patient Tobacco Use Status: Former Tobacco user Years Smoked: quit at 31 years old Substance Use Type: Marijuana Physical Exam Vital Signs: Last Vital Signs Pulse 81 08/15/23 13:53 BP 114/74 08/15/23 13:53 BMI result Body Mass Index 34.7 Absence of Cushingoid features. Absence of acromegalic features. Neck exam reveals nl size thyroid about 15 gms. No thyroid nodules palpable. No carotid bruits present. Lungs CTA. Heart S1 S2, Reg R/R. No M/R/ G. Skin exam reveals absence of vitiligo or acanthosis nigricans. Abdominal exam reveals Soft NT/ND with NA BS. No organomegaly present. Neck Other: . Extrem Other: Visual exam of foot performed. No ulcerations or open lesions. No onchomycosis, no callouses.Pulses 2 + distally Sensation intact to monofilament exam. Vibratory sensation sensed is intact with 128 Hz tuning fork Results AMB Hemoglobin A1c AMB Hemoglobin A1c 8.8 % Last Edit by ZORA Peña on 08/15/23 14:12 Results Reviewed Results Reviewed: Laboratory Last Values Glucose (Clinic) 184 mg/dL (60-115) H 08/15/23 14:00 Assessment & Plan Assessment & Plan (1) Diabetes type 2, uncontrolled: Code(s): E11.65 - Type 2 diabetes mellitus with hyperglycemia Qualifiers: Glycemic state: with hyperglycemia Qualified Code(s): E11.65 - Type 2 diabetes mellitus with hyperglycemia Plan: This 62-year-old white male with a history of type 2 diabetes being treated with basal-bolus insulin and Ozempic with poor glycemic control and known microvascular complications namely neuropathy and nephropathy. Plan is to increase the Ozempic to 2 mg Qwkly. I told patient to report any hypoglycemia . Will have patient follow up with clinical staff educator. May need to increase pre lunch and pre-dinner NovoLog if do not get control with increase Ozempic dose. Will check lipid profile . Told patient to follow up with Ophthalmology Orders: Orders AMB Hemoglobin A1c Today E11.65 - Type 2 diabetes mellitus with hyperglycemia Coding Level of Care Code Est Pt Level 4 (81333) Diagnoses Uncontrolled type 2 diabetes mellitus with hyperglycemia E11.65 Glycemic state: with hyperglycemia
[2023-08-15 13:53] VITALS: BP 114/74; PULSE 81; BMI 34.7
[2023-08-15 14:05] LABS: Glucose, Whole Blood 184 mg/dL (60-115)
== END 2023-08-15 14:23 | disposition home or self-care (01) ==
PROVIDERS: PCP Family Medicine; Visit Provider Internal Medicine Endocrinology, Diabetes & Metabolism
DX: E11.65 Type 2 diabetes mellitus with hyperglycemia (principal)
CPT/HCPCS: 99214

== ENCOUNTER → 2023-08-15 13:44 | Outpatient (BNVA) | payer OTHER, SELFPAY | PROVIDERS: PCP Family Medicine; Visit Provider Internal Medicine Endocrinology, Diabetes & Metabolism | DX: E11.65 Type 2 diabetes mellitus with hyperglycemia (principal); E11.40 Type 2 diabetes mellitus with diabetic neuropathy, unspecified; E11.21 Type 2 diabetes mellitus with diabetic nephropathy; I25.10 Atherosclerotic heart disease of native coronary artery without angina pectoris; I10 Essential (primary) hypertension; E78.5 Hyperlipidemia, unspecified; Z90.5 Acquired absence of kidney; Z79.4 Long term (current) use of insulin; Z79.01 Long term (current) use of anticoagulants; Z79.899 Other long term (current) drug therapy | CPT/HCPCS: 82947; 83036; 99212 ==

== ENCOUNTER 2023-08-23 10:05 | Outpatient (AMB) | payer OTHER, SELFPAY ==
--- NOTE | 2023-08-23 10:43 | MHC.AMDMED ---
Intake Intake Visit Reasons: dm Infection Prevention Practitioner Required: No Accompanied by: Self / Same As Patient Allergies morphine [MORPHINE] Allergy (Severe, Verified 08/15/23 13:53) PT STATES FLAT-LINED -WAS IN W/CP HPI Comprehensive Diabetes Asmnt Most Recent Diabetes Results: Microalb/Creat Ratio 53.5 ug/mg cr 09/10/22 Cholesterol 148 mg/dL 06/24/22 HDL Cholesterol 35 mg/dL 06/24/22 Triglycerides 223 mg/dL 06/24/22 Creatinine 0.93 mg/dL (0.5-1.4) 04/26/23 Blood Urea Nitrogen 16 mg/dL (9-16) 04/26/23 Sodium 139 mmol/L (135-145) 04/26/23 Potassium 4.5 mmol/L (3.3-5.1) 04/26/23 Chloride 106 mmol/L (96-108) 04/26/23 Carbon Dioxide 24 mmol/L (22-29) 04/26/23 Calcium 8.7 mg/dL (8.4-10.2) 06/24/22 AST 21 U/L (5-37) 09/10/22 ALT 21 U/L (0-40) 09/10/22 Total Protein 6.7 g/dL (6.5-8.0) 06/24/22 Albumin 4.1 g/dL (3.5-5.0) 06/24/22 [facility] Medical History Diabetes type 2, uncontrolled Diabetic nephropathy associated with type 2 diabetes mellitus Diabetic neuropathy associated with type 2 diabetes mellitus Dyslipidemia HLD (hyperlipidemia) HTN (hypertension) correction (current) use of insulin Obesity (BMI 30-39.9) T2DM (type 2 diabetes mellitus) Vitamin D deficiency Surgical History History of open reduction and internal fixation (ORIF) procedure History of ear surgery History of carpal tunnel surgery of left wrist History of intraocular lens implant Hx of vasectomy Hx of appendectomy Hx of hernia repair Hx of arthroscopy of knee History of left nephrectomy Family History Father No problems noted. Mother FH: ovarian cancer in first degree relative Diabetes Social History Alcohol intake: former Patient Tobacco Use Status: Former Tobacco user Years Smoked: quit at 31 years old Substance Use Type: Marijuana Assessment & Plan Assessment & Plan (1) Diabetes type 2, uncontrolled: Code(s): E11.65 - Type 2 diabetes mellitus with hyperglycemia Qualifiers: Glycemic state: with hyperglycemia Qualified Code(s): E11.65 - Type 2 diabetes mellitus with hyperglycemia Plan: Personal Continuous Glucose Monitor: Patients CGM information reviewed Reviewed patient's sensor data: Hypoglycemia: ? 0% Hyperglycemia:? 63% Time in Range:? 37% Average glucose for the last 2 weeks? 208 mg/dL Patient reports he lost his last year. Patient was very teary at today's visit. Patient does have behavior health specialist, also recommended to patient to contact LT[facility], [facility] to see if they have support group people who have lost their partners. Patient has had difficulty sleeping, overnight glucose tends to run above target. After reviewing Dr. Patel's note from last visit in July 2023 Dr. Patel noted that he was increasing Ozempic from 1 mg to 2 mg. However prescription was never sent. Sent message to Dr. Patel to send new prescription for Ozempic 2 mg. Reviewed with patient diabetes food hub website, simple recipes that he can make for himself. Reviewed how to interpret trend arrows Reminded patient that to check finger sticks if symptoms do not match sensor reading. Discussed lag time between finger stick and sensor data.? Patient able to insert sensor independently at home without issue.? 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
== END 2023-08-23 10:46 | disposition home or self-care (01) ==
PROVIDERS: PCP Family Medicine; Visit Provider Registered Nurse Diabetes Educator
DX: E11.65 Type 2 diabetes mellitus with hyperglycemia (principal)

== ENCOUNTER → 2023-08-23 10:05 | Outpatient (BNVA) | payer OTHER, SELFPAY | PROVIDERS: PCP Family Medicine; Visit Provider Registered Nurse Diabetes Educator | DX: E11.65 Type 2 diabetes mellitus with hyperglycemia (principal) | CPT/HCPCS: 99211 ==

== ENCOUNTER 2023-10-21 10:19 | Outpatient (REF) | payer OTHER, SELFPAY ==
[2023-10-21 11:10] LABS: Estimated Average Glucose 217 mg/dL; Hemoglobin A1c % 9.2 % (<6.0)
[2023-10-21 12:12] LABS: Alanine Aminotransferase 35 U/L (0-40); Anion Gap 13 (12-20); Aspartate Amino Transferase 38 U/L (5-37); Blood Urea Nitrogen 12 mg/dL (9-16); Carbon Dioxide 25 mmol/L (22-29); Chloride 105 mmol/L (96-108); Cholesterol 132 mg/dL (<200); Estimated Glomerular Filt Rate > 60; Glucose Fasting 158 mg/dL (60-99); HDL Cholesterol 36 mg/dL (>40); LDL Cholesterol Calculated 60 mg/dL (<100); Sodium 139 mmol/L (135-145); Triglycerides 180 mg/dL (<150)
[2023-10-21 13:52] LABS: Creatinine Urine 157.26 mg/dL; Microalbum/Creatinine Ratio Ur 147.5 ug/mg cr (<30)
== END 2023-10-21 10:20 | disposition home or self-care (01) ==
LOC: HO.10HDL 10:19
PROVIDERS: Visit Provider Family Medicine
DX: E11.9 Type 2 diabetes mellitus without complications (principal)
CPT/HCPCS: 36415; 80051; 80061; 82043; 82550; 82565; 82570; 82947; 83036; 84450; 84460; 84520

== ENCOUNTER 2023-12-19 13:07 | Outpatient (AMB) | payer OTHER, SELFPAY ==
--- NOTE | 2023-12-19 13:16 | A.OFFVIS_ITS ---
Vital Signs 12/19/23 13:29 Pulse 96 Pulse Source Pulse Oximeter Intake Visit Reasons: T2DM/LVM Intake Note: New patient presents today for D2MT office visit. 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 Required: No Accompanied by: Self / Same As Patient Allergies morphine [MORPHINE] Allergy (Severe, Verified 12/19/23 13:17) PT STATES FLAT-LINED -WAS IN W/CP Medication List - Last Reconciled 12/19/23 by Alaina Coleman PA-C acetaminophen (Tylenol Extra Strength) 1,000 mg (2 x 500 mg) PO QID PRN albuterol sulfate 90 mcg/actuation (Ventolin HFA) 2 puffs inhalation Q6H PRN alendronate 70 mg PO QWEEK amitriptyline 25 mg PO BEDTIME aspirin (Adult Low Dose Aspirin) 81 mg PO DAILY blood sugar diagnostic (FreeStyle Lite Strips) 4 times a day blood-glucose meter (FreeStyle Lite Meter kit) 4 times a day blood-glucose meter (FreeStyle [place] Lite kit) As directed calcium carbonate-vitamin D3 500 mg-15 mcg (600 unit) 1 tab PO DAILY cholecalciferol (vitamin D3) 50 mcg PO DAILY ezetimibe 10 mg PO DAILY insulin aspart U-100 (Novolog FlexPen U-100 Insulin aspart) Up to a total daily dose of 75 units per day subcutaneously daily; 90 days MDD 75 insulin degludec (Tresiba FlexTouch U-200 insulin) 50 units (0.25 mL) subcut BEDTIME lancets (FreeStyle Lancets) 4 times a day leflunomide 20 mg PO DAILY lisinopril 5 mg PO DAILY metoprolol succinate ER 100 mg PO DAILY omega-3 acid ethyl esters 1 cap PO BID omeprazole 20 mg PO DAILY ondansetron HCl (Zofran) 4 mg PO Q8H PRN pen needle, diabetic (BD Mariah 2nd Gen Pen Needle) 1 ea miscellaneous .5 times a day 30 days pregabalin (Lyrica) 50 mg PO BEDTIME primidone 250 mg PO BID rosuvastatin 40 mg PO DAILY semaglutide (Ozempic) 2 mg (0.75 mL) subcut QWEEK sertraline 50 mg PO DAILY trazodone 50 mg PO BEDTIME warfarin 5 mg PO HPI HPI T2DM/LVM: Details: Patient is a 63-year-old male with a significant past medical history hypertension, hyperlipidemia, 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 He last saw Dr. Patel in August. Endo: His last A1c was 9. He is currently on Tresiba U200 50 units at bedtime, NovoLog sliding scale, Ozempic 2 mg. -He states since increasing the ozempic he is getting better with his diet. He states that he is also working harder on his diet right now. Recently moved into his daughter's house and is feeling better with this transition. His last year in October and this has been a struggle for him. He was cooking most of his own meals and is eating some poor choices because they were in out of the hospital and then following her passing he was feeling a lot of grief. He is following closely with his PCP for this. He still struggles sometimes falling asleep and staying asleep at night but has tried to increase his activity which has helped him with sleeping. He is almost fully moved into his daughter's house and anticipates that his diet will be even better. CGM-average glucose 169, GMI 7.4%. Very high 8%, high 24%, in range 67%, hypoglycemic 1%, very low 1%. In the last 3 days no lows. He goes low during the day and states it is related to him skipping a meal. He has glucose tabs and candy to correct the lows. He is on an JOVANA-inhibitor, statin and pregabalin for his neuropathy. CV: Blood pressure today in the office is 114/74. He is on lisinopril 5 mg, metoprolol 100 mg. He is on Crestor 40 mg and Zetia 10 mg. Last LDL was 60. 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 Mother FH: ovarian cancer in first degree relative Diabetes Social History Alcohol intake: former Patient Tobacco Use Status: Former Tobacco user Years Smoked: quit at 31 years old Substance Use Type: Marijuana Physical Exam Vital Signs: Last Vital Signs Pulse 96 12/19/23 13:29 Const Orientation/consciousness: patient oriented x3 Neck Neck: Yes no lymphadenopathy Thyroid: Thyroid normal Carotids: no bruits Resp Auscultation: clear to auscultation bilaterally Cardio Rate: regular rate Rhythm: regular rhythm Heart sounds: S1 normal heart sound present and S2 normal heart sound present Peripheral pulses: dorsalis pedis present Neuro General: patient oriented x3, gait normal and no focal motor deficits Results Reviewed Results Reviewed: Laboratory Last Values Glucose (Clinic) 135 mg/dL (60-115) H 12/19/23 13:35 Laboratory Tests 10/21/23 12/19/23 10:25 13:35 Creatinine 0.87 Estimated GFR > 60 Glucose (Clinic) 135 H Fasting Glucose 158 H Hemoglobin A1c % 9.2 H AST 38 H LDL Cholesterol, Calc 60 Assessment & Plan Assessment & Plan (1) Diabetes type 2, uncontrolled: Code(s): E11.65 - Type 2 diabetes mellitus with hyperglycemia Category: Medical Qualifiers: Glycemic state: with hyperglycemia Qualified Code(s): E11.65 - Type 2 diabetes mellitus with hyperglycemia Plan: His diabetes appears to be improving. He has had a lot of life changes the last couple months and is working harder on his diet and exercise. The Ozempic is improving his hunger. We will continue his current regimen and have him follow- up in 3 months. I will check labs prior to appointment. He will contact me sooner if anything changes with his numbers to make adjustments. He is very compliant with his CGM and closely monitoring his glucose patterns. Patient understands and agrees with this plan. Orders: Orders Hemoglobin A1c Today E11.65 - Type 2 diabetes mellitus with hyperglycemia Coding Level of Care Code Est Pt Level 4 (11219) Complex EM visit Add On G2211 Diagnoses Uncontrolled type 2 diabetes mellitus with hyperglycemia E11.65 Glycemic state: with hyperglycemia
[2023-12-19 13:29] VITALS: PULSE 96
[2023-12-19 13:40] LABS: Glucose, Whole Blood 135 mg/dL (60-115)
== END 2023-12-19 14:21 | disposition home or self-care (01) ==
PROVIDERS: PCP Family Medicine; Visit Provider Physician Assistant
DX: E11.65 Type 2 diabetes mellitus with hyperglycemia (principal)
CPT/HCPCS: 99214; G2211

== ENCOUNTER 2024-03-19 09:59 | Outpatient (AMB) | payer OTHER, SELFPAY ==
[2024-03-19 10:03] VITALS: BP 118/82; PULSE 65; BMI 35.0
--- NOTE | 2024-03-19 10:03 | MHC.OFFVIS ---
Vital Signs 03/19/24 10:03 Height 5 ft 9 in Weight 237 lb 3.478 oz BMI 35.0 BP 118/82 Blood Pressure Location Lt brachial Position Sitting Pulse 65 Pulse Source Pulse Oximeter Intake Visit Reasons: DM/CONFIRMED Intake Note: Patient presents today for D2MT follow up visit. Last Diabetic Eye exam: 03/2024 Last Podiatry Visit: 01/2024 Random Glucose: 183 mg/dl HgA1c: 7.9% Child Care Centre Manager Required: No Accompanied by: Self / Same As Patient Allergies morphine [MORPHINE] Allergy (Severe, Verified 03/19/24 10:11) PT STATES FLAT-LINED -WAS IN W/CP Medication List - Last Reconciled 03/19/24 by Alaina Coleman PA-C acetaminophen (Tylenol Extra Strength) 1,000 mg (2 x 500 mg) PO QID PRN albuterol sulfate 90 mcg/actuation (Ventolin HFA) 2 puffs inhalation Q6H PRN alendronate 70 mg PO QWEEK amitriptyline 25 mg PO BEDTIME aspirin (Adult Low Dose Aspirin) 81 mg PO DAILY blood sugar diagnostic (FreeStyle Lite Strips) 4 times a day blood-glucose meter (FreeStyle Lite Meter kit) 4 times a day blood-glucose meter (FreeStyle Exira Lite kit) As directed calcium carbonate-vitamin D3 500 mg-15 mcg (600 unit) 1 tab PO DAILY cholecalciferol (vitamin D3) 50 mcg PO DAILY ezetimibe 10 mg PO DAILY insulin aspart U-100 (Novolog FlexPen U-100 Insulin aspart) Up to a total daily dose of 75 units per day subcutaneously daily; 90 days MDD 75 insulin degludec (Tresiba FlexTouch U-200 insulin) 50 units (0.25 mL) subcut BEDTIME lancets (FreeStyle Lancets) 4 times a day leflunomide 20 mg PO DAILY lisinopril 5 mg PO DAILY metoprolol succinate ER 100 mg PO DAILY omega-3 acid ethyl esters 1 cap PO BID omeprazole 20 mg PO DAILY ondansetron HCl (Zofran) 4 mg PO Q8H PRN pen needle, diabetic (BD Mariah 2nd Gen Pen Needle) 1 ea miscellaneous .5 times a day 30 days pregabalin (Lyrica) 50 mg PO BEDTIME primidone 250 mg PO BID rosuvastatin 40 mg PO DAILY semaglutide (Ozempic) 2 mg (0.75 mL) subcut QWEEK sertraline 50 mg PO DAILY trazodone 50 mg PO BEDTIME warfarin 5 mg PO HPI HPI DM/CONFIRMED: Details: Patient is a 63-year-old male with a significant past medical history hypertension, hyperlipidemia, 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 He last saw Dr. Patel in August. Endo: His last A1c was 9. He is currently on Tresiba U200 50 units at bedtime, NovoLog sliding scale, Ozempic 2 mg. CGM-average glucose 169, GMI 7.4%. high 38%, in range 61%, hypoglycemic 1%, very low 0%. In the last 3 days no lows. He goes low during the day and states it is related to him skipping a meal. He has glucose tabs and candy to correct the lows. He is on an JOVANA-inhibitor, statin and pregabalin for his neuropathy. CV: Blood pressure today in the office is 118/82. He is on lisinopril 5 mg, metoprolol 100 mg. He is on Crestor 40 mg and Zetia 10 mg. Last LDL was 60. [facility] Medical History (Updated 03/19/24 @ 11:32 by Alaina Coleman PA-C) Vitamin D deficiency HTN (hypertension) HLD (hyperlipidemia) T2DM (type 2 diabetes mellitus) Diabetes type 2, uncontrolled Obesity (BMI 30-39.9) Dyslipidemia Diabetic nephropathy associated with type 2 diabetes mellitus Diabetic neuropathy associated with type 2 diabetes mellitus jail (current) use of insulin Surgical History History of open reduction and internal fixation (ORIF) procedure History of ear surgery History of carpal tunnel surgery of left wrist History of intraocular lens implant Hx of vasectomy Hx of appendectomy Hx of hernia repair Hx of arthroscopy of knee History of left nephrectomy Family History Father No problems noted. Mother FH: ovarian cancer in first degree relative Diabetes Social History Alcohol intake: former Patient Tobacco Use Status: Former Tobacco user Years Smoked: quit at 31 years old Substance Use Type: Marijuana Physical Exam Vital Signs: Last Vital Signs Pulse 65 03/19/24 10:03 BP 118/82 03/19/24 10:03 BMI result Body Mass Index 35.0 Const Orientation/consciousness: patient oriented x3 Neck Neck: Yes no lymphadenopathy Thyroid: Thyroid normal Carotids: no bruits Resp Auscultation: clear to auscultation bilaterally Cardio Rate: regular rate Rhythm: regular rhythm Heart sounds: S1 normal heart sound present and S2 normal heart sound present Peripheral pulses: dorsalis pedis present Neuro General: patient oriented x3, gait normal and no focal motor deficits Extrem Other: Monofilament absent bilaterally. Vibratory sensation diminished bilaterally. Skin intact. General: Yes normal to inspection Results AMB Hemoglobin A1c AMB Hemoglobin A1c 7.9 % Last Edit by ZORA Lee on 03/19/24 10:24 Results Reviewed Results Reviewed: Laboratory Last Values Glucose (Clinic) 183 mg/dL (60-115) H 03/19/24 10:14 Hgb A1c (Clinic) 7.9 % (4.0-6.0) H 03/19/24 10:17 Laboratory Tests 11/11/21 08/15/23 10/21/23 11:00 14:10 10:25 Creatinine 0.87 Estimated GFR > 60 Glucose (Clinic) Hgb A1c (Clinic) 8.8 H Hemoglobin A1c % 9.2 H AST 38 H ALT 35 Triglycerides 180 H Cholesterol 132 LDL Cholesterol, Calc 60 Urine Creatinine Urine Microalbumin Microalb/Creat Ratio Islet Cell Ab Screen NEGATIVE MALATHI Antibody <5 10/21/23 12/19/23 11:40 13:35 Creatinine Estimated GFR Glucose (Clinic) 135 H Hgb A1c (Clinic) Hemoglobin A1c % AST ALT Triglycerides Cholesterol LDL Cholesterol, Calc Urine Creatinine 157.26 Urine Microalbumin 232.0 Microalb/Creat Ratio 147.5 H Islet Cell Ab Screen MALATHI Antibody Assessment & Plan Assessment & Plan (1) Diabetic neuropathy associated with type 2 diabetes mellitus: Code(s): E11.40 - Type 2 diabetes mellitus with diabetic neuropathy, unspecified Category: Medical Qualifiers: Diabetes mellitus complication detail: diabetic polyneuropathy Qualified Code(s): E11.42 - Type 2 diabetes mellitus with diabetic polyneuropathy Plan: We will increase Tresiba to 55 units. Continue the NovoLog sliding scale. Typically uses 15-20 units 3 times a day. Continue Ozempic. Diabetic shoes ordered today. He follows with Podiatry and states that he wants to go get diabetic shoes. Return for follow up in 3 months. Sooner if needed. Patient understands and agrees with this plan. (2) Dyslipidemia: Code(s): E78.5 - Hyperlipidemia, unspecified Category: Medical Plan: Continue current regimen (3) HTN (hypertension): Code(s): I10 - Essential (primary) hypertension Category: Medical Qualifiers: Hypertension type: unspecified Qualified Code(s): I10 - Essential (primary) hypertension Plan: As above Orders: Orders AMB Hemoglobin A1c Today E11.65 - Type 2 diabetes mellitus with hyperglycemia, Z13.9 - Encounter for screening, unspecified, Z79.4 - jail (current) use of insulin Medications: New foot care products Diabetic shoes use daily As directed 2 ea 0RF E11.42 - Type 2 diabetes mellitus with diabetic polyneuropathy diabetic supplies, miscellan. diabetic shoes use daily as directed. 1 pair 2 ea 0RF E11.42 - Type 2 diabetes mellitus with diabetic polyneuropathy Changed From insulin degludec (Tresiba FlexTouch U-200 insulin) 50 units (0.25 mL) subcut BEDTIME 9 mL 4RF To insulin degludec (Tresiba FlexTouch U-200 insulin) 55 units (0.275 mL) subcut BEDTIME 9 mL 4RF Coding Level of Care Code Est Pt Level 4 (99720) Complex EM visit Add On G2211 Diagnoses Diabetic polyneuropathy associated with type 2 diabetes mellitus E11.42 Diabetes mellitus complication detail: diabetic polyneuropathy Dyslipidemia E78.5 Hypertension, unspecified type I10 Hypertension type: unspecified
[2024-03-19 10:18] LABS: Glucose, Whole Blood 183 mg/dL (60-115)
== END 2024-03-19 11:04 | disposition home or self-care (01) ==
LOC: HO.ENCR 09:59
PROVIDERS: PCP Family Medicine; Visit Provider Physician Assistant
DX: Z13.9 Encounter for screening, unspecified (principal); E11.65 Type 2 diabetes mellitus with hyperglycemia; Z79.4 Long term (current) use of insulin; E11.42 Type 2 diabetes mellitus with diabetic polyneuropathy; E78.5 Hyperlipidemia, unspecified; I10 Essential (primary) hypertension

== ENCOUNTER → 2024-03-19 09:59 | Outpatient (BNVA) | payer OTHER, SELFPAY | PROVIDERS: PCP Family Medicine; Visit Provider Physician Assistant | DX: E11.42 Type 2 diabetes mellitus with diabetic polyneuropathy (principal); E78.5 Hyperlipidemia, unspecified; I10 Essential (primary) hypertension | CPT/HCPCS: 82947; 83036; 99212 ==

== ENCOUNTER → 2024-06-22 10:50 | Outpatient (BNVA) | payer OTHER, SELFPAY | PROVIDERS: PCP Family Medicine; Visit Provider Physician Assistant | DX: E11.21 Type 2 diabetes mellitus with diabetic nephropathy (principal); E78.5 Hyperlipidemia, unspecified; I10 Essential (primary) hypertension | CPT/HCPCS: 82947; 83036; 99212 ==

== ENCOUNTER → 2024-06-22 10:50 | Outpatient (AMB) | payer OTHER, SELFPAY ==
[2024-06-22 11:04] LABS: Glucose, Whole Blood 186 mg/dL (60-115)
== END | disposition home or self-care (01) ==
PROVIDERS: PCP Family Medicine; Visit Provider Physician Assistant

== ENCOUNTER 2024-09-28 10:48 | Outpatient (AMB) | payer OTHER, SELFPAY ==
[2024-09-28 10:50] VITALS: BP 110/72; PULSE 80; O2SAT 96; BMI 34.6
--- NOTE | 2024-09-28 10:50 | A.OFFVIS_ITS ---
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 Motor Vehicles Required: No Accompanied by: Self / Same As Patient Allergies morphine [MORPHINE] Allergy (Severe, Verified 09/28/24 10:55) PT STATES FLAT-LINED -WAS IN W/CP Medication List - Last Reconciled 09/28/24 by Alaina Coleman PA-C acetaminophen (Tylenol Extra Strength) 1,000 mg (2 x 500 mg) PO QID PRN albuterol sulfate 90 mcg/actuation (Ventolin HFA) 2 puffs inhalation Q6H PRN amitriptyline 25 mg PO BEDTIME aspirin (Adult Low Dose Aspirin) 81 mg PO DAILY blood sugar diagnostic (FreeStyle Lite Strips) 4 times a day blood-glucose meter (FreeStyle Lite Meter kit) 4 times a day blood-glucose meter (FreeStyle Downs Lite kit) As directed calcium carbonate-vitamin D3 500 mg-15 mcg (600 unit) 1 tab PO DAILY cholecalciferol (vitamin D3) 50 mcg PO DAILY diabetic supplies, miscellan. diabetic shoes use daily as directed. 1 pair ezetimibe 10 mg PO DAILY foot care products Diabetic shoes use daily As directed insulin aspart U-100 (Novolog FlexPen U-100 Insulin aspart) 10 units (0.1 mL) subcut TID 90 days insulin degludec (Tresiba FlexTouch U-200 insulin) 60 units (0.3 mL) subcut BEDTIME lancets (FreeStyle Lancets) 4 times a day leflunomide 20 mg PO DAILY lisinopril 5 mg PO DAILY meloxicam 15 mg PO DAILY metoprolol succinate ER 100 mg PO DAILY omega-3 acid ethyl esters 1 cap PO BID omeprazole 20 mg PO DAILY ondansetron HCl (Zofran) 4 mg PO Q8H PRN pen needle, diabetic 1 ea miscellaneous .5 times a day 30 days pregabalin (Lyrica) 50 mg PO BEDTIME primidone 250 mg PO BID rosuvastatin 40 mg PO DAILY semaglutide (Ozempic) 2 mg (0.75 mL) subcut QWEEK sertraline 50 mg PO DAILY warfarin 5 mg PO HPI HPI DM: Details: Patient is a 63-year-old male with a significant past medical history hypertension, hyperlipidemia, 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 Endo: His last A1c was 7.8. He is currently on Tresiba U200 60 units at bedtime, NovoLog 10 units TID, Ozempic 2 mg. Metformin not tolerated with GI sx. Believes he has tried trulicity as well but cannot recall CGM-average glucose 188, GMI 8%. high 57%, in range 43%, hypoglycemic 0%, very low 0%. He states when he takes novolog his glucose jumps up about 50 points and takes 2 hrs to start to lower the numbers. He also gets pain with injections. He has glucose tabs and candy to correct the lows. He is on an JOVANA-inhibitor, statin and pregabalin for his neuropathy. CV: Blood pressure today in the office is 110/72. He is on lisinopril 5 mg, metoprolol 100 mg. He is on Crestor 40 mg and Zetia 10 mg. Last LDL was 60. 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 Mother FH: ovarian cancer in first degree relative Diabetes Social History Alcohol intake: former Patient Tobacco Use Status: Former Tobacco user Years Smoked: quit at 31 years old Substance Use Type: Marijuana Physical Exam Vital Signs: Last Vital Signs Pulse 80 09/28/24 10:50 BP 110/72 09/28/24 10:50 Pulse Ox 96 09/28/24 10:50 Oxygen Delivery Method Room Air 09/28/24 10:50 BMI result Body Mass Index 34.6 Const Orientation/consciousness: patient oriented x3 Neck Neck: Yes no lymphadenopathy Thyroid: Thyroid normal Carotids: no bruits Resp Auscultation: clear to auscultation bilaterally Cardio Rate: regular rate Rhythm: regular rhythm Heart sounds: S1 normal heart sound present and S2 normal heart sound present Peripheral pulses: dorsalis pedis present Neuro General: patient oriented x3, gait normal and no focal motor deficits Extrem Other: Monofilament sensation intact bilaterally. Vibratory sensation intact bilaterally. Skin intact. General: Yes normal to inspection Results AMB Hemoglobin A1c AMB Hemoglobin A1c 8.2 % Last Edit by ZORA Lee on 09/28/24 11:12 Results Reviewed Results Reviewed: Laboratory Last Values Glucose (Clinic) 204 mg/dL (60-115) H 09/28/24 10:59 Hgb A1c (Clinic) 8.2 % (4.0-6.0) H 09/28/24 11:11 Laboratory Tests 10/21/23 06/22/24 06/22/24 11:40 11:00 11:03 Glucose (Clinic) 186 H Hgb A1c (Clinic) 7.8 H Urine Creatinine 157.26 Urine Microalbumin 232.0 Microalb/Creat Ratio 147.5 H Assessment & Plan Assessment & Plan (1) Diabetic neuropathy associated with type 2 diabetes mellitus: Code(s): E11.40 - Type 2 diabetes mellitus with diabetic neuropathy, unspecified Category: Medical Qualifiers: Diabetes mellitus complication detail: diabetic polyneuropathy Qualified Code(s): E11.42 - Type 2 diabetes mellitus with diabetic polyneuropathy Plan: continue tresiba 60 units switch from novolog to humalog 10 units with meals continue ozempic 2 mg weekly start jardiance 10 mg every morning -get labs today for baseline -recheck renal function in 2-4 weeks after starting medication short term follow up in 4-6 weeks (2) HLD (hyperlipidemia): Code(s): E78.5 - Hyperlipidemia, unspecified Category: Medical Qualifiers: Hyperlipidemia type: unspecified Qualified Code(s): E78.5 - Hyperlipidemia, unspecified Plan: Lipids and LFTs ordered. Currently on Zetia 10 mg and Crestor 40 mg daily. (3) HTN (hypertension): Code(s): I10 - Essential (primary) hypertension Category: Medical Qualifiers: Hypertension type: unspecified Qualified Code(s): I10 - Essential (primary) hypertension Plan: Currently well-controlled. Continue current regimen Orders: Orders Lipid Panel Today E11.21 - Type 2 diabetes mellitus with diabetic nephropathy, E11.42 - Type 2 diabetes mellitus with diabetic polyneuropathy, E78.5 - Hyperlipidemia, unspecified, I10 - Essential (primary) hypertension Microalbumin, Random (w Creat) Today E11.21 - Type 2 diabetes mellitus with diabetic nephropathy, E11.42 - Type 2 diabetes mellitus with diabetic polyneuropathy, E78.5 - Hyperlipidemia, unspecified, I10 - Essential (primary) hypertension Comprehensive Caruthers. Panel Fast Today E11.21 - Type 2 diabetes mellitus with diabetic nephropathy, E11.42 - Type 2 diabetes mellitus with diabetic polyneuropathy, E78.5 - Hyperlipidemia, unspecified, I10 - Essential (primary) hypertension AMB Hemoglobin A1c Today E11.42 - Type 2 diabetes mellitus with diabetic polyneuropathy, Z13.9 - Encounter for screening, unspecified Medications: New empagliflozin (Jardiance) 10 mg PO QAM 90 tabs 1RF insulin lispro (Humalog KwikPen (U-100) Insulin) 10 units (0.1 mL) subcut TID 15 mL 2RF Discontinued insulin aspart U-100 (Novolog FlexPen U-100 Insulin aspart) with breakfast, lunch and supper. Discontinued Reason: Doctor's Order 10 units (0.1 mL) subcut TID 90 days 30 mL 2RF E11.65 - Type 2 diabetes mellitus with hyperglycemia Coding Level of Care Code Est Pt Level 4 (50181) Complex EM visit Add On G2211 Diagnoses Diabetic polyneuropathy associated with type 2 diabetes mellitus E11.42 Diabetes mellitus complication detail: diabetic polyneuropathy Hyperlipidemia, unspecified hyperlipidemia type E78.5 Hyperlipidemia type: unspecified Hypertension, unspecified type I10 Hypertension type: unspecified
[2024-09-28 11:12] LABS: Glucose, Whole Blood 204 mg/dL (60-115)
--- OUTSIDE RECORDS SUMMARY | 2024-09-28 11:19 | XMS_ITS | Clinical Summary ---
Author Organization [facility] Facility Address [address] [place] [id number] Care Team Providers Care Log Chipper Operator Name Role Phone Justen العلي MD Primary Care Provider [phone] Allergies Active Allergy Reactions Criticality Noted Date Comments Morphine 01/07/2022 Medications adalimumab (Humira) 40 MG/0.8ML Prefilled Syringe Kit Inject Active albuterol HFA (PROVENTIL HFA;VENTOLIN HFA) 108 (90 Base) MCG/ACT inhaler Inhale 7 Active alendronate (FOSAMAX) 70 MG tablet 2 Active amitriptyline (ELAVIL) 25 MG tablet 2 Active amLODIPine (NORVASC) 10 MG tablet Take 1 tablet by mouth 1 (one) time each day Active betamethasone dipropionate 0.05 % cream 2 Active GNP Calcium 500 +D3 500-600 MG-UNIT tablet 2 Active ezetimibe (ZETIA) 10 MG tablet 2 Active Folic Acid 20 MG capsule Take 1 capsule by mouth 1 (one) time each day Active inFLIXimab (REMICADE) 100 MG injection Infuse into a venous catheter 5 Active NovoLOG FLEXPEN 100 UNIT/ML injection 2 Active Tresiba FlexTouch 200 UNIT/ML injection 2 Active leflunomide (ARAVA) 20 MG tablet 2 Active lisinopril 5 MG tablet 2 Active LORazepam (ATIVAN) 0.5 MG tablet Take 0.25 mg by mouth 9 Active meloxicam (MOBIC) 15 MG tablet 2 Active metoprolol succinate XL (TOPROL-XL) 100 MG 24 hr tablet 2 Active omega-3 acid ethyl esters (LOVAZA) 1 g capsule 2 Active omeprazole (PriLOSEC) [address] capsule 2 Active OXcarbazepine (TRILEPTAL) 300 MG tablet Take 2 tablets by mouth 1 (one) time each day Active pregabalin (LYRICA) 50 MG capsule 2 Active primidone (MYSOLINE) 250 MG tablet 2 Active rosuvastatin (CRESTOR) 40 MG tablet 2 Active sertraline (ZOLOFT) 100 MG tablet 2 Active triamcinolone (KENALOG) 0.1 % cream 2 Active warfarin (COUMADIN) 5 MG tablet 2 Active Active Problems Problem Noted Date Diagnosed Date Chronic kidney disease stage 2 01/07/2022 Hypertensive renal disease 01/07/2022 Proteinuria 01/07/2022 Total nephrectomy 01/07/2022 Chronic kidney disease, stage 2 (mild) 2 Proteinuria 01/07/2022 Resolved Problems Problem Noted Date Diagnosed Date Resolved Date Acute myocardial infarction of inferior wall 2 01/07/2022 Angina pectoris 01/07/2022 01/07/2022 Coronary atherosclerosis 01/07/2022 Foot pain 01/07/2022 01/07/2022 Lower limb arterial embolus 01/07/2022 01/07/2022 Neuropathy 01/07/2022 01/07/2022 Numbness 01/07/2022 01/07/2022 Pain in limb 01/07/2022 01/07/2022 Peripheral arterial occlusive disease 01/07/2022 01/07/2022 Syncope and collapse 01/07/2022 022 Immunizations Immunization Administration Dates Next Due Pneumococcal Polysaccharide 01/10/2010 Social History Tobacco Use Types Packs/Day Years Used Date Smoking Tobacco: Never Passive Smoke Exposure: Never Smokeless Tobacco: Never Tobacco Cessation:Counseling Given: No Alcohol Use Standard Drinks/Week Comments No 0 (1 standard drink = 0.6 oz pur e alcohol) Sex and Gender Information Value Date Recorded Sex Assigned at Not on file Legal Sex Male 5:13 PM EST Gender Identity Not on file Sexual Orientation Not on file Last Filed Vital Signs Vital Sign Reading Time Taken Comments Blood Pressure 138/62 07/12/2022 3:01 PM EST Pulse 86 07/12/2022 3:01 PM EST Temperature - - Respiratory Rate - - Oxygen Saturation 98% 07/12/2022 3:01 PM EST Inhaled Oxygen Concentration - - Weight 105 kg (231 lb) 07/12/2022 3:01 PM EST Height - - Body Mass Index - - Plan of Treatment Health Maintenance Due Date Last Done Comments Colorectal Cancer Screening: Annual FOBT 11/29/2007 Colorectal Cancer Screening: Colonoscopy 11/29/2007 Colorectal Cancer Screening: Sigmoidoscopy 11/29/2007 Pneumococcal Vaccine: 50+ Ye ars (2 of 2 - PCV) 01/10/2011 01/10/2010 Influenza Vaccine (Season Ended) 2025 03/03/20 21 Pneumococcal Vaccine: Peds ( 0 to 5 Years) and At-Risk Patients (6 to 49 Years) Discontinued 01/10/2010 Hepatitis B Vaccine Aged Out No longe r eligible based on patient's age to complete this topic Insurance (A2793) [place] [facility] ([id number]) Medicaid [place] Care Teams Log Chipper Operator Relationship Specialty Start Date End Date Justen العلي MD [address] [place] [address] [place] [address] PCP - General Internal Medicine 09/16/21
--- OUTSIDE RECORDS SUMMARY | 2024-09-28 11:19 | XMS_ITS ---
Author Organization [facility] Address [address] [place] [address] Care Team Providers Care Dough Brake Machine Operator Name Role Phone Justen العلي MD Primary Care Provider UnavailTrevor Phan [phone] REASON FOR VISIT No show Encounters Encounter Location Date Provider Diagnosis [address] [address] 05/04/2024 Trevor Daniels Plan Of Treatment Next Appt Details Provider Name:Trevor Daniels , 10/12/2024 11:00:00 AM, [address] [place], [address], Progress Notes * Octavio RICCIDOB: [birth year] (63 yo M)Acc No.[id number]:05/04/2024 Patient:?Octavio RICCI :1960???Age:63 Y???Sex:Male Address:[address] [place] [address], [place], [address] * true * Date:? Generated for Printi ng/Faxing/eTransmitting on:?09/28/2024 11:19 AM EDT
--- OUTSIDE RECORDS SUMMARY | 2024-09-28 11:20 | XMS_ITS | Patient Health Record ---
[facility] Address [address] [place] [address] Care Team Providers Care Cloth Colorer Name Role Phone Justen العلي MD Primary Care Provider Unavailab Trevor Amador Unavailable [phone] Allergies Allergen (clinical drug ingredient) Drug/Non Drug Allergy documented on EMR Reaction Allergy Type Onset Date Status morphine Morphine Drop Drug Allergy Active Results Component Value Reference Range Notes HEMOGLOBIN A1C (GLYCOHEMOGLO BIN) Reviewed date:12/20/2023 02:55:58 PM Interpretation: Performing Lab: Notes/Report: HEMOGLOBIN A1C (HH) 7.2 HEMOGLOBIN A1C (GLYCOHEMOGLO BIN) Reviewed date:07/10/2024 10:40:20 AM Interpretation: Performing Lab: Notes/Report: HEMOGLOBIN A1C % (HH) 7.4 Reason For Referral No Information Medications Medication SIG (Take, Route, Frequency, Duration) Notes Start Date End Date Status Extra Depth Orthopedic Shoes (1 Pair) with Customized Heat Molded Multidensity Innersoles (3 Pair) as directed Dx: NIDDM/Polyneuropath y (E11.42), Hammertoe Foot Deformity (M20.41,M20.42), Preulcerative Skin Lesion(s) (L85.1 12/20/2023 Active Calcium + D Active Triamcinolone Acetonide 0.1 % as directed Externally Twice a day Not-Taking Aspirin 81 MG 1 tablet Orally Once a day for 30 day(s) Active Remicade 1100 mg infusion monthly Not-Taking Amitriptyline HCl 25 MG 1 tablet at bedtime Orally Once a day for 30 day(s) Active Meloxicam 7.5 MG 1 tablet Orally Once a day for 30 day(s) Not-Taking Fosamax 70 MG 1 tablet 30 minutes before the first food, beverage or medicine of the day with plain water Orally for 30 day(s) Not-Taking Lisinopril 5 MG 1 tablet Orally Once a day for 30 day(s) Active Leflunomide 20 MG 1 tablet Orally Once a day for 30 day(s) Active immodium 1 tab Oral for 14 days Active Ezetimibe 10 MG 1 tablet Orally Once a day for 30 day(s) Active Lantus Not-Taking Nitroglycerin 0.4 MG Sublingual for 25 PRN Active Metoprolol Succinate ER 100 MG 1 tablet Orally Once a day for 30 day(s) Active Lyrica 50 MG 1 capsule Orally Twice a day Active Rosuvastatin Calcium 40 MG 1 tablet Orally Once a day for 30 day(s) Active Primidone 250 MG 1 tablet Orally Twice a day for 30 day(s) Active Omeprazole 20 MG 1 capsule 30 minutes before morning meal Orally Once a day for 30 day(s) Active NovoLOG Active Warfarin Sodium Acti ve Ventolin HFA Active Tresiba Active Sertraline HCl 100 MG 1 tablet Orally Once a day for 30 day(s) Active Advair HFA 230-21 MCG/ACT 2 puffs Inhalation Twice a day Active Ammonium Lactate 12 % 1 application to affected area Externally to feet Twice a day for 30 days Active Ozempic Active Hydrocortisone 2.5 % 1 application Externally Twice a day for 30 days Active Zofran 4 MG 1 tablet Orally PRN 02/18/2021 Active Immunizations Vaccine Route Administration Date Status Comme nts COVID-19 Moderna Vaccine Unknown 04/03/2021 Administered 1st 06/27/2020 2nd 08/04/2020 Influenza Unknown 03/03/2021 Administered Influenza Unknown 02/12/2022 Administered Social History Tobacco Use: Social History Observation Description Date Details (start date - stop date) Never Smoker NA - NA Tobacco use other than smoking: Question Answer Notes Are you an other tobacco user? No Tobacco Control (Standard) Question Answer Notes Tobacco use: Nonsmoker AUDIT-C (Standard) Question Answer Notes Did you have a drink containing alcohol in the p ast year? No Points 0 Interpretation Negative Problems Problem Type SNOMED Code ICD Code Onset Dates Problem Status W/U Status Risk Notes Problem Acquired hammer toe of right foot (1744028603440390 ) Other hammer toe(s) (acquired), right foot (M20.41) Active confirmed Response to treatment, Improvemen t Problem Acquired hammer toe of left foot (7374580103284349 ) Other hammer toe(s) (acquired), left foot (M20.42) Active confirmed Response to treatment, Improvemen t Problem Polyneuropathy due to type 2 diabetes mellitus (964056321) Type 2 diabetes mellitus with diabetic polyneuropathy (E11.42) Active confirmed Vital Signs Blood pressure diastolic 70 mm Hg 07/10/2024 Height 5ft 9in in 07/10/2024 Blood pressure systolic 130 mm Hg 07/10/2024 Weight 217 lbs 07/10/2024 BMI 32.04 kg/m2 07/10/2024 Procedures Procedure Date Ordered Date Performed Result Body Sit e 07314-EYHDAUO NAIL, 6 OR MORE 12/20/2023 N/A 53164-VWQH SKIN LESIONS, OVER 4 12/20/2023 N/A 22748-UTEEFWT NAIL, 6 OR MORE 07/10/2024 N/A 90049-IHQP SKIN LESIONS, OVER 4 07/10/2024 N/A Encounters Encounter Location Date Provider Diagnosis [address] [address] 12/20/2023 Trevor Daniels Type 2 diabetes mellitus with diabetic polyneuropathy E11.42 ; Tinea unguium B35.1 ; Other hammer toe(s) (acquired), right foot M20.41 and Other hammer toe(s) (acquired), left foot M20.[address] [address] 07/10/2024 Trevor Daniels Type 2 diabetes mellitus with diabetic polyneuropathy E11.42 ; Tinea unguium B35.1 ; Other hammer toe(s) (acquired), right foot M20.41 and Other hammer toe(s) (acquired), left foot M20.[address] [address] 03/20/2024 Trevor Daniels [address] [address] 05/04/2024 Trevor Daniels Assessments Encounter Date Diagnosis (ICD Code) Assessment Notes Treatment Notes Treatment Clinical Notes Section Notes 12/20/2023 Type 2 diabetes mellitus with diabetic polyneuropathy (ICD-10 - E11.42) 12/20/2023 Tinea unguium (ICD-10 - B35.1) 07/10/2024 Type 2 diabetes mellitus with diabetic polyneuropathy (ICD-10 - E11.42) 07/10/2024 Tinea unguium (ICD-10 - B35.1) 07/10/2024 Other hammer toe(s) (acquired), right foot (ICD-10 - M20.41) Response to treatment,Impro vement 12/20/2023 Other hammer toe(s) (acquired), right foot (ICD-10 - M20.41) Patient Educated with: DIABETIC FOOT CARE INSTRUCTIONS. pdf (DIABETIC FOOT CARE INSTRUCTIONS. pdf) 07/10/2024 Other hammer toe(s) (acquired), left foot (ICD-10 - M20.42) Response to treatment,Impro vement 12/20/2023 Other hammer toe(s) (acquired), left foot (ICD-10 - M20.42) Plan Of Treatment Pending Test Test Name Order Date 42285-JUYRTAH NAIL, 6 OR MORE 02/20/2021 58586-VFXKOAA NAIL, 6 OR MORE 06/12/2021 99829-BKCCXRR NAIL, 6 OR MORE 08/21/2021 42759-WLDLMUW NAIL, 6 OR MORE 11/10/2021 56352-QVPPCGL NAIL, 6 OR MORE 01/19/2022 23468-EPEYCWD NAIL, 6 OR MORE 03/30/2022 72318-JHGQMYT NAIL, 6 OR MORE 08/27/2022 38715-UXRSLOQ NAIL, 6 OR MORE 11/26/2022 85539-DNMGGXW NAIL, 6 OR MORE 02/15/2023 19109-TGYFHPO NAIL, 6 OR MORE 04/29/2023 95362-SRDYECG NAIL, 6 OR MORE 07/12/2023 84371-HCMWHLQ NAIL, 6 OR MORE 12/20/2023 79533-UBXTDVT NAIL, 6 OR MORE 07/10/2024 62303-JCDT SKIN LESIONS, OVER 4 07/10/19 25 53128-IMDM SKIN LESIONS, OVER 4 12/20/19 24 08548-WOPE SKIN LESIONS, OVER 4 07/12/19 24 98744-UAZK SKIN LESIONS, OVER 4 04/29/20 23 21377-NWZZ SKIN LESIONS, OVER 4 02/16/20 23 15044-PUDO SKIN LESIONS, OVER 4 11/27/19 23 31947-CUKD SKIN LESIONS, OVER 4 08/28/19 23 52477-IMAD SKIN LESIONS, OVER 4 03/30/20 22 63767-VBDR SKIN LESIONS, OVER 4 01/20/20 64900-OFJI SKIN LESIONS, OVER 4 11/11/19 22 99733-IWBU SKIN LESIONS, OVER 4 08/22/19 85590-QLIL SKIN LESIONS, OVER 4 02/21/20 21 74765-TCZC SKIN LESIONS, OVER 4 06/12/19 Next Appt Details Provider Name:Trevor Daniels , 10/12/2024 11:00:00 AM, [address] [place] [address], [phone], Insurance Providers Payer Name Payer Address Payer Phone Subscriber Number Group Number Insured Name Patient Relationship to Insured Coverage Start Date Coverage End Date [facility] [employer] Claims [address] [place] [address] [id number] Octavio Elder Self - patient is the insured Medical (General) History Medical History History ICD Code Angina Anxiety Back,Hip,and Knee pain Cataracts Epilepsy Heart disease High blood pressure Kidney disease Numbness Poor circulation Psoriasis/eczema type II diabetes Surgical History Surgery Date(Month/Year) Eye Surgery - Glaucoma 08/09/2022
--- OUTSIDE RECORDS SUMMARY | 2024-09-28 11:20 | XMS_ITS ---
Author Organization [facility] Address [address] [place] [address] Care Team Providers Care Palletizer Name Role Phone Severiano POSADAS, Justen Primary Care Provider Unavailab Trevor Amador Unavailable [phone] Allergies Allergen (clinical drug ingredient) Drug/Non Drug Allergy documented on EMR Reaction Allergy Type Onset Date Status morphine Morphine Drop Drug Allergy Active REASON FOR VISIT At Risk Footcare, Toe Irritation Medications Medication SIG (Take, Route, Frequency, Duration) Notes Start Date End Date Status Calcium + D Active Aspirin 81 MG 1 tablet Orally Once a day for 30 day(s) Active Amitriptyline HCl 25 MG 1 tablet at bedtime Orally Once a day for 30 day(s) Active immodium 1 tab Oral for 14 days Active Ezetimibe 10 MG 1 tablet Orally Once a day for 30 day(s) Active Triamcinolone Acetonide 0.1 % as directed Externally Twice a day Not-Taking Lantus Not-Taking Advair HFA 230-21 MCG/ACT 2 puffs Inhalation Twice a day Active Ammonium Lactate 12 % 1 application to affected area Externally to feet Twice a day for 30 days Active Ozempic Active Extra Depth Orthopedic Shoes (1 Pair) with Customized Heat Molded Multidensity Innersoles (3 Pair) as directed Dx: NIDDM/Polyneuropath y (E11.42), Hammertoe Foot Deformity (M20.41,M20.42), Preulcerative Skin Lesion(s) (L85.1 12/20/2023 Active Remicade 1100 mg infusion monthly Not-Taking Meloxicam 7.5 MG 1 tablet Orally Once a day for 30 day(s) Not-Taking Fosamax 70 MG 1 tablet 30 minutes before the first food, beverage or medicine of the day with plain water Orally for 30 day(s) Not-Taking Hydrocortisone 2.5 % 1 application Externally Twice a day for 30 days Active Warfarin Sodium Acti ve Ventolin HFA Active Tresiba Active Sertraline HCl 100 MG 1 tablet Orally Once a day for 30 day(s) Active Zofran 4 MG 1 tablet Orally PRN 02/18/2021 Active Rosuvastatin Calcium 40 MG 1 tablet Orally Once a day for 30 day(s) Active Primidone 250 MG 1 tablet Orally Twice a day for 30 day(s) Active Omeprazole 20 MG 1 capsule 30 minutes before morning meal Orally Once a day for 30 day(s) Active NovoLOG Active Nitroglycerin 0.4 MG Sublingual for 25 PRN Active Lisinopril 5 MG 1 tablet Orally Once a day for 30 day(s) Active Leflunomide 20 MG 1 tablet Orally Once a day for 30 day(s) Active Metoprolol Succinate ER 100 MG 1 tablet Orally Once a day for 30 day(s) Active Lyrica 50 MG 1 capsule Orally Twice a day Active Social History Tobacco Use: Social History Observation [...] ast year? No Points 0 Interpretation Negative Vital Signs Height 5ft 9in in 07/10/2024 Weight 217 lbs 07/10/2024 BMI 32.04 kg/m2 07/10/2024 Blood pressure systolic 130 mm Hg 07/10/19 25 Blood pressure diastolic 70 mm Hg 025 Procedures Procedure Date Ordered Date Performed Result Body Sit e 32220-BCLWWUV NAIL, 6 OR MORE 07/10/2024 N/A 08488-TXGM SKIN LESIONS, OVER 4 07/10/2024 N/A Encounters Encounter Location Date Provider Diagnosis [facility] [place] [address] [place] [address] 07/10/2024 Trevor Daniels Type 2 diabetes mellitus with diabetic polyneuropathy E11.42 ; Tinea unguium B35.1 ; Other hammer toe(s) (acquired), right foot M20.41 and Other hammer toe(s) (acquired), left foot M20.42 Assessments Encounter Date Diagnosis (ICD Code) Assessment Notes Treatment Notes Treatment Clinical Notes Section Notes 07/10/2024 Type 2 diabetes mellitus with diabetic polyneuropathy (ICD-10 - E11.42) 07/10/2024 Tinea unguium (ICD-10 - B35.1) 07/10/2024 Other hammer toe(s) (acquired), right foot (ICD-10 - M20.41) Response to treatment,Impro vement 07/10/2024 Other hammer toe(s) (acquired), left foot (ICD-10 - M20.42) Response to treatment,Impro vement Plan Of Treatment Pending Test Test Name Order Date [id number]-QCVPUFT NAIL, 6 OR MORE 07/10/2024 30631-TDRM SKIN LESIONS, OVER 4 07/10/19 Next Appt Details Follow Up: 2-3 Months, Reaso n: Provider Name:Trevor Daniels , 10/12/2024 11:00:00 AM, [address] [place] [address], [id number], Procedure Notes * Category Sub-Category Detail Notes Debride Nail 6-10 Nail debridement Due to the cl inical pathology outlined in the exam findings, performance of this nail treatment is medically necessary as its management by an unskilled/untrained nonprofessional would put this patients foot and overall health at risk. Therefore, debridement to affected nail(s), as described in exam ( TA, T1, T2, T3, T4, T5, T6, T7, T8, T9 ), was performed exclusively by the physician of record to reduce/remove overall nail length, girth, thickness, subungual debris, and necrotic tissue, by manual and/or electrical means through the use of a nail nipper and/or dremel-type snag grinder, to a more viable healthy nail plate or bed tissue 6-10 nails in total. Silver nitrate was used for any petechial bleeding as necessary. Definitive antifungal treatment options, both pharmaceutical and surgical, have been reviewed and discussed with the patient. The patient solely prefers the use of intermittent/as needed professional debridement services for their nail condition and understands the need for additional periodic treatments to maintain effectiveness in symptomatic relief - 21616 Keratoma Treatment Parring or Cutting o f Benign Hyperkeratotic Lesion(s) (-57) More than 4 Lesions - Due to the at risk nature of the patients medical condition as documented in the exam findings, performance of this keratoderma treatment is medically necessary as its management by an unskilled/untrained nonprofessional would put this patients foot and overall health at risk. Therefore, the benign hyperkeratotic lesions, ( 6 ) in total, locations as stated and described in the exam ( Medial plantar, IPJ, TA, Medial plantar, IPJ, T5, SUB MTH (s), 1, B/L ,Plantar, Heel(s), B/L ), were pared, and/or cut utilizing a sterile 15 blade, tissue nippers, and/or power dremel instrumentation by the physician of record - 80245 Progress Notes * Octavio RICCIDOB: [birth year] (63 yo M)Acc No.[id number]:07/10/2024 Progress Note Patient:?Octavio RICCI Provider:?Trevor Daniels DPM :1960???Age:63 Y???Sex:Male Willie e:07/10/2024 Address:[address] [place] [address], [place], [place] Pcp:Justen العلي MD Subjective: * Chief Complaints: * ???At Risk FootcareToe Irrit ation * HPI: ???At Risk footcare:?Pt States Last PCP Visit:?Date?07/09/2024 ???Toe pain:?Treatments:?Rx shoes .? * ROS:?General/Constitutional:?Nausea?denies.?Vomiting?denies.?Hunger Thirst?denies.?Loss appetite?denies.?Chills?denies.?Fatigue?denies.?Fever?denies.?Night Sweats?denies.?Unexplained weight loss?denies.?Unexplained weight gain?denies.?HEENTM:?Dentures?admits.?Dizziness?denies.?Glasses/contacts?admits.?Retinopathy?den ies.?Blurred/double vision?denies.?TMJ?denies.?Discharge/drainage?denies.?Implants?denies.?Sore throat?denies.?Dental implants?denies.?Hard of hearing ?denies.?Difficulty chewing/swallowing/speaking?denies.?Nose bleeds?denies.?Sore mouth?denies.?Respiratory:?On O xygen?denies.?Pneumonia/pleurisy?denies.?Bronchitis?denies.?Emphysema?denies.?Co ughing?denies.?Cough blood?denies.?Shortness of breath?denies.?Wheezing?denies.?Cardiovascular:?Pacemaker?denies.?MVP?denies.?WPW?denies.?CHF?denies.?Heart attack?admits.?Septal defect?denies.?Rapid beat?denies.?Chest pain ?admits.?Atrial Fib.?denies.?Murmur/Palpitations?denies.?Gastrointestinal:?Hemorrhoids?denies.?Stomach/Abdominal pain?denies.?Dark blood stool?denies.?Irritable bowel ?denies.?Constipation?denies.?Diarrhea?admits.?Hematology:?Swelling?admits.?Clots?Admits.?Varicose Veins?denies.?Bruising?admits, on anticoagulants.?Bleeding problem?admits, on anticoagulants.?Genitourinary:?Blood urine?denies.?Frequent/Painfu/urination/bladder control?denies.?Kidney stones?denies.?Infection (UTI)?denies.?Nephropathy?denies.?sex trans dis (STD)?denies.?Prostate?denies.?Musculoskeletal:?Hammertoes?admits.?Bunions?denies.?Back Pain?admits.?Muscle Cramps/ Resting?denies.?Muscle cramps / walking?admits.?Generalized aches and pains?denies.?Weakness?admits.?Integ.:?Nieto?denies.?Scars?denies.?Corns/calluses?admits.?Ingrown nails?admits.?Painful nails?denies.?Open Sores?denies.?Rashes?denies.?Neurologic:?Difficulty sleeping?denies.?Brain disorder?denies.?Numbness?admits.?Balance t rouble?denies.?Confusion?denies.?Fainting/blackouts?denies.?Tingling?admits.?Adonis mors?admits.? * Medical History:? * Surgical History:?Eye Surger y - Glaucoma 08/09/2022 * Hospitalization/Major Diagno stic Procedure:?Denies Past Hospitalization * Family History:?Mother: dece ased, diagnosed with Diabetic - NIDDM, Family history of arthritis.?Father: , diagnosed with Family history of arthritis.?Spouse: alive.? * Social History:?Tobacco Use:?Tobacco use other than smoking?Are you an other tobacco user??No ?Tobacco Control (Standard)?Tobacco use:?Nonsmoker ???Drugs/Alcohol:?Drugs?Have you used drugs other than those for medical reasons in the past 12 months??No ???Miscellaneous:?Caffeine: yes, frequency:, 2-3 cups per day. ?Children: yes, 2. ?Exercise: yes, walking. ?Marital status: . ?Occupation: Disabled. ???Drug/Alcohol:?AUDIT-C (Standard)?Did you have a drink containing alcohol in the past year??No ?Points?0 ?Interpretation?Negative * Medications:?TakingOzempic A mmonium Lactate 12 % Cream 1 application to affected area Externally to feet Twice a day Advair HFA 230-21 MCG/ACT Aerosol 2 puffs Inhalation Twice a day Amitriptyline HCl 25 MG Tablet 1 tablet at bedtime Orally Once a day Aspirin 81 MG Tablet Chewable 1 tablet Orally Once a day Calcium + D Ezetimibe 10 MG Tablet 1 tablet Orally Once a day immodium 1 tab Oral Leflunomide 20 MG Tablet 1 tablet Orally Once a day Lisinopril 5 MG Tablet 1 tablet Orally Once a day Lyrica 50 MG Capsule 1 capsule Orally Twice a day Metoprolol Succinate ER 100 MG Tablet Extended Release 24 Hour 1 tablet Orally Once a day Nitroglycerin 0.4 MG Tablet Sublingual Sublingual , Notes to Pharmacist: PRNNovoLOG Omeprazole 20 MG Capsule Delayed Release 1 capsule 30 minutes before morning meal Orally Once a day Primidone 250 MG Tablet 1 tablet Orally Twice a day Rosuvastatin Calcium 40 MG Tablet 1 tablet Orally Once a day Sertraline HCl 100 MG Tablet 1 tablet Orally Once a day Tresiba Ventolin HFA Warfarin Sodium Zofran 4 MG Tablet 1 tablet Orally PRN Hydrocortisone 2.5 % Cream 1 application Externally Twice a day Extra Depth Orthopedic Shoes (1 Pair) with Customized Heat Molded Multidensity Innersoles (3 Pair) as directed Dx: NIDDM/Polyneuropathy (E11.42), Hammertoe Foot Deformity (M20.41,M20.42), Preulcerative Skin Lesion(s) (L85.1 Taking Ozempic Taking Ammonium Lactate 12 % Cream 1 application to affected area Externally to feet Twice a day Taking Advair HFA 230-21 MCG/ACT Aerosol 2 puffs Inhalation Twice a day Taking Amitriptyline HCl 25 MG Tablet 1 tablet at bedtime Orally Once a day Taking Aspirin 81 MG Tablet Chewable 1 tablet Orally Once a day Taking Calcium + D Taking Ezetimibe 10 MG Tablet 1 tablet Orally Once a day Taking immodium 1 tab Oral Taking Leflunomide 20 MG Tablet 1 tablet Orally Once a day Taking Lisinopril 5 MG Tablet 1 tablet Orally Once a day Taking Lyrica 50 MG Capsule 1 capsule Orally Twice a day Taking Metoprolol Succinate ER 100 MG Tablet Extended Release 24 Hour 1 tablet Orally Once a day Taking Nitroglycerin 0.4 MG Tablet Sublingual Sublingual , Notes to Pharmacist: PRNTaking NovoLOG Taking Omeprazole 20 MG Capsule Delayed Release 1 capsule 30 minutes before morning meal Orally Once a day Taking Primidone 250 MG Tablet 1 tablet Orally Twice a day Taking Rosuvastatin Calcium 40 MG Tablet 1 tablet Orally Once a day Taking Sertraline HCl 100 MG Tablet 1 tablet Orally Once a day Taking Tresiba Taking Ventolin HFA Taking Warfarin Sodium Taking Zofran 4 MG Tablet 1 tablet Orally PRN Taking Hydrocortisone 2.5 % Cream 1 application Externally Twice a day Taking Extra Depth Orthopedic Shoes (1 Pair) with Customized Heat Molded Multidensity Innersoles (3 Pair) as directed Dx: NIDDM/Polyneuropathy (E11.42), Hammertoe Foot Deformity (M20.41,M20.42), Preulcerative Skin Lesion(s) (L85.1 Not-Taking/PRNFosamax 70 MG Tablet 1 tablet 30 minutes before the first food, beverage or medicine of the day with plain water Orally Meloxicam 7.5 MG Tablet 1 tablet Orally Once a day Remicade , Notes to Pharmacist: 1100 mg infusion monthlyTriamcinolone Acetonide 0.1 % Ointment as directed Externally Twice a day Lantus Medication List reviewed and reconciled with the patientNot-Taking/PRN Fosamax 70 MG Tablet 1 tablet 30 minutes before the first food, beverage or medicine of the day with plain water Orally Not-Taking/PRN Meloxicam 7.5 MG Tablet 1 tablet Orally Once a day Not-Taking/PRN Remicade , Notes to Pharmacist: 1100 mg infusion monthlyNot-Taking/PRN Triamcinolone Acetonide 0.1 % Ointment as directed Externally Twice a day Not-Taking/PRN Lantus Medication List reviewed and reconciled with the patient * Allergies:?Morphine: Drop De adyes[Allergies Verified] Objective: * Vitals:?Ht:5ft 9in, Wt:217, BMI:32.04, Shoe size:9, BP:130/70mm Hg, BS:181, Ht- cm: 175.26 cm, Wt-k.43 kg. * ???Past Orders: ???Lab:HEMOGLOBIN A1C (GLYCO HEMOGLOBIN) (Order Date - 04/16/2024) (Collection Date & Time - 07/10/2024 10:39 AM) ? Value Reference Range ?HEMOGLOBIN A1C % (HH) 7.4 * Examination: ???Ophthalmology Referral: ?DIABETES EYE EXAM?Procedure Performed:?Yes ?Date of Exam Performed?02/15/2024 ?Diabetic Retinopathy Screening:?Yes ?Retinal Screening Performed:?Yes ?Findings of Diabetic Eye Exam:?no retinopathy?Neurological: ?SENSORY:? Neurological exam demonstrates, reduced light touch sensation, reduced sharp/dull pin prick discrimination , B/L, 5.07 monofilament test performed at plantar aspects of 5 varied sites per foot shows sensation, reduced , B/L.?Nails: ?NAILS are:?Elongated, overgrown, dystrophic, lytic, greater than 3mm thick, discolored and friable with crumbly malodorous subungual debris , TA, T1, T2, T3, T4, T5, T6, T7, T8, T9.?Dermatologic: ?SKIN FINDINGS:? Skin exam reveals Keratotic lesion(s) located at, Medial plantar, IPJ, TA, Medial plantar, IPJ, T5, SUB MTH (s), 1, B/L ,Plantar, Heel(s), B/L.?Orthopedic: ?DIGITAL DEFORMITIES:?Digital contracture, PIPJ, 2-5 B/L, incompl-reducible to push-up test, no over, nor underlapping, no longer, with evidence of shoe producing skin irritation.?FOOTWEAR:?good condition, exhibit proper fit and accommodation for pedal deformities. OT were inspected and noted to be worn, but in good condition giving proper support at the present time.?General Examination: ?GENERAL APPEARANCE:?Reveals a pleasant, alert, well nourished, well developed, well hydrated individual, who demonstrates proper attention to hygiene/body habitus, and is in no acute distress.?ORIENTED:?person, place, and time.?FOOT EXAM:?Lower Extremity Neurological Exam performed:?Yes ?Visual exam of foot performed:?Yes ?Date?07/10/2024 ?Footwear Evaluation?Footwear Evaluation performed:?Yes??? Assessment: * Assessment: 1.?Type 2 diabetes mellitus with diabetic polyneuropathy - E11.42 (Primary)???2.?Tinea unguium - B35.1???3.?Other hammer toe(s) (acquired), right foot - M20.41???Specify :Chronic problem, Stable (1=3,2=4)???Notes :Response to treatment,Improvement???4.?Other hammer toe(s) (acquired), left foot - M20.42???Specify :Chronic problem, Stable (1=3,2=4)???Notes :Response to treatment,Improvement??? Plan: * Treatment: * Procedures:?Debride Nail 6-10:?Nail debridement?Due to the clinical pathology outlined in the exam findings, performance of this nail treatment is medically necessary as its management by an unskilled/untrained nonprofessional would put this patients foot and overall health at risk. Therefore, debridement to affected nail(s), as described in exam ( TA, T1, T2, T3, T4, T5, T6, T7, T8, T9 ), was performed exclusively by the physician of record to reduce/remove overall nail length, girth, thickness, subungual debris, and necrotic tissue, by manual and/or electrical means through the use of a nail nipper and/or dremel-type snag grinder, to a more viable healthy nail plate or bed tissue 6- 10 nails in total. Silver nitrate was used for any petechial bleeding as necessary. Definitive antifungal treatment options, both pharmaceutical and surgical, have been reviewed and discussed with the patient. The patient solely prefers the use of intermittent/as needed professional debridement services for their nail condition and understands the need for additional periodic treatments to maintain effectiveness in symptomatic relief - 82133.?Keratoma Treatment:?Parring or Cutting of Benign Hyperkeratotic Lesion(s)?(-57) More than 4 Lesions - Due to the at risk nature of the patients medical condition as documented in the exam findings, performance of this keratoderma treatment is medically necessary as its management by an unskilled/untrained nonprofessional would put this patients foot and overall health at risk. Therefore, the benign hyperkeratotic lesions, ( 6 ) in total, locations as stated and described in the exam (?Medial plantar,?IPJ,?TA,?Medial plantar,?IPJ,?T5,?SUB MTH (s),?1,?B/L?,Plantar,?Heel(s),?B/L?), were pared, and/or cut utilizing a sterile 15 blade, tissue nippers, and/or power dremel instrumentation by the physician of record - 91091.? * Procedure Codes:?90472 DEBRI DE NAIL, 6 OR MORE, Modifiers: XS 28895 TRIM SKIN LESIONS, OVER 4, Modifiers: XS * Preventive Medicine:? ??Counseling:?Discussion:?-13: Office or other outpatient visit for the evaluation and management of an established patient, which required a medically appropriate history and/or examination and LOW level of DECISION MAKING for: 1 STABLE ACUTE UNCOMPLICATED PROBLEM, 2 OR MORE MINOR PROBLEMS, OR 1 STABLE CHRONIC PROBLEM, THAT POSE(S) A LOW RISK FOR MORBIDITY/MORTALITY. The visit on the day of the encounter encompassed interpreting the data and educating the patient as to the nature of their condition, treatment options available according to their individual PMH, meds, allergies, and overall health/living conditions, as well as any potential risks or complications that may occur from a failure to adhere to, and participate in, the recommended course of therapy. The discussion included a complete verbal, and/or written explanation of the examination results, any x-rays taken, the proposed diagnosis, and outline of the treatment plan. A schedule for future care needs was also explained. The patient verbalized an understanding of the instructions at this time and agreed to be an active participant in their treatment. If the patient should think of any questions or concerns after the visit, I have encouraged the patient to call the office.?Shoe Gear Counseling:?A thorough inspection of the patients Rxed shoegear and inserts was performed and findings communicated. We reviewed the many important medical advantages for adhering to regularly wearing these shoe and insert accomidative devices daily as well as reviewed the fact that a failure in accepting these recommedations may be deleterious, unable to prevent, and disadvantagely result in, many pedal complications such as skin irritation, skin ulceration, infection, and even loss of toe/foot/leg/or even their life. Time was also spent reviewing the proper footcare techniques including daily skin moisturization, daily foot inspection for any interruption in skin integrity, open lesions, or sign of infection such as redness/malodor/drainage/swelling as well as daily shoe inspection for the presence of internal foreign bodies and shoe as well as insert wear. Patient questions re: shoes, inserts, and self foot inspections were answered to their satisfaction as the patient verbally confirmed a full understanding of the above information.? ??Screening/Special Tests:?Fall Risk?Screening:?No falls in the past year ?FALLS: Screening for Future Fall Risk?Have you had any falls with injury in the past year??No * Follow Up:?2-3 Months * Images: * Sign off status: Completed true * Provider:?Trevor Daniels DPM Date:?2024 Generated for Taty juarez/Lisa/Fernandez on:?09/28/2024 11:20 AM EDT History and Physical Notes * HPI (History of Present Illness) Category Sub-Category Detail Notes Category Not es Toe pain Treatments: Rx shoes At Risk footcare Pt States Last PCP Visit: Date: Examination Category Sub-Category Detail Notes Category Not es Neurological SENSORY: Neurological exa m demonstrates, reduced light touch sensation, reduced sharp/dull pin prick discrimination , B/L, 5.07 monofilament test performed at plantar aspects of 5 varied sites per foot shows sensation, reduced , B/L Dermatologic SKIN FINDINGS: Skin exam reveal s Keratotic lesion(s) located at, Medial plantar, IPJ, TA, Medial plantar, IPJ, T5, SUB MTH (s), 1, B/L ,Plantar, Heel(s), B/L Orthopedic FOOTWEAR EVALUATION: good condit ion, exhibit proper fit and accommodation for pedal deformities. OT were inspected and noted to be worn, but in good condition giving proper support at the present time DIGITAL DEFORMITIES: Digital contracture , PIPJ, 2-5 B/L, incompl-reducible to push-up test, no over, nor underlapping, no longer, with evidence of shoe producing skin irritation General Examination GENERAL APPEARANCE: Reveals a pleasant, alert, well nourished, well developed, well hydrated individual, who demonstrates proper attention to hygiene/body habitus, and is in no acute distress FOOT EXAM: Lower Extremity Neurological Exa m performed:: Yes Visual exam of foot performed:: Yes Date: 07/10/2024 ORIENTED: person, place, and t sergio Footwear Evaluation Footwear Evaluation performe d:: Yes Ophthalmology Referral DIABETES EYE EXAM Procedure Perform ed:: Yes ?Date of Exam Performed: 02/15/2024 Diabetic Retinopathy Screening:: Yes Retinal Screening Performed:: Yes Findings of Diabetic Eye Exam:: no retin opathy Nails NAILS are: Elongated, overg rown, dystrophic, lytic, greater than 3mm thick, discolored and friable with crumbly malodorous subungual debris , TA, T1, T2, T3, T4, T5, T6, T7, T8, T9
--- OUTSIDE RECORDS SUMMARY | 2024-09-28 11:20 | XMS_ITS ---
Author Organization [facility] Address [address] [place] [address] Care Team Providers Care Die Maker Trim Name Role Phone Severiano POSADAS, Justen Primary Care Provider UnavailTrevor Phna Unavailable [phone] REASON FOR VISIT Seen Sooner Encounters Encounter Location Date Provider Diagnosis [facility] [address] [place] [address] 06/15/2024 Trevor Daniels Plan Of Treatment Next Appt Details Provider Name:Trevor Daniels , 10/12/2024 11:00:00 AM, [address] [place], [address], Progress Notes * Octavio RICCIDOB: [birth year] (63 yo M)Acc No.[id number]:06/15/2024 Progress Note Patient:?Octavio RICCI Provider:?Trevor Daniels DPM :1960???Age:63 Y???Sex:Male Willie e:06/15/2024 Address:[address] [place] [address] [facility] Pcp:Justen العلي MD Subjective: * Chief Complaints: * ???1. Seen Sooner. * Medical History:? Objective: * Vitals:? Assessment: Plan: * Treatment: * Images: * The named appointment provid er may or may not be the originator of this progress note, and it is not deemed complete until electronically signed by the appointment provider. Sign off status: Pending * Provider:?Trevor Daniels DPM Date:?2024 Generated for Taty juarez/Lisa/Fernandez on:?09/28/2024 11:19 AM EDT
== END 2024-09-28 11:22 | disposition home or self-care (01) ==
LOC: HO.ENCR 10:48
PROVIDERS: PCP Family Medicine; Visit Provider Physician Assistant
DX: E11.42 Type 2 diabetes mellitus with diabetic polyneuropathy (principal); E78.5 Hyperlipidemia, unspecified; I10 Essential (primary) hypertension; Z13.9 Encounter for screening, unspecified

== ENCOUNTER → 2024-09-28 10:48 | Outpatient (BNVA) | payer OTHER, SELFPAY | PROVIDERS: PCP Family Medicine; Visit Provider Physician Assistant | DX: Z13.89 Encounter for screening for other disorder (principal) | CPT/HCPCS: 82947; 83036; 99212 ==

== ENCOUNTER 2024-09-28 11:28 | Outpatient (REF) | payer OTHER, SELFPAY ==
--- OUTSIDE RECORDS SUMMARY | 2024-09-28 11:46 | XMS_ITS | Clinical Summary ---
Author Organization [facility] Address [address] [place] [address] Care Team Providers Care Rn Community [facility] Name Role Phone Justen العلي MD Primary Care Provider Allergies Active Allergy Reactions Criticality Noted Date [...] complete this topic Insurance ([id number]) [place] [facility] ([id number]) Medicaid [place] Care Teams Rn Community [facility] Relationship Specialty Start Date End Date Justen العلي MD [address] [place] [address] [place] [address] PCP - General Internal Medicine 09/16/21
[2024-09-28 14:16] LABS: Alanine Aminotransferase 30 U/L (0-40); Albumin Level 4.2 g/dL (3.5-5.0); Alkaline Phosphatase 82 U/L (39-117); Anion Gap 13 (12-20); Aspartate Amino Transferase 35 U/L (5-37); Bilirubin Total 0.3 mg/dL (0.0-1.0); Blood Urea Nitrogen 13 mg/dL (9-16); Calcium 9.6 mg/dL (8.4-10.2); Carbon Dioxide 28 mmol/L (22-29); Chloride 103 mmol/L (96-108); Cholesterol 111 mg/dL (<200); Creatinine Urine 220.29 mg/dL; Estimated Glomerular Filt Rate > 60; Glucose Fasting 211 mg/dL (60-99); HDL Cholesterol 33 mg/dL (>40); LDL Cholesterol Calculated 30 mg/dL (<100); Microalbum/Creatinine Ratio Ur 65.8 ug/mg cr (<30); Potassium 4.8 mmol/L (3.3-5.1); Sodium 139 mmol/L (135-145); Total Protein 7.6 g/dL (6.5-8.0); Triglycerides 244 mg/dL (<150)
== END 2024-09-28 11:29 | disposition home or self-care (01) ==
LOC: HO.10HDL 11:28
PROVIDERS: Visit Provider Physician Assistant
DX: I10 Essential (primary) hypertension (principal); E78.5 Hyperlipidemia, unspecified; E11.42 Type 2 diabetes mellitus with diabetic polyneuropathy; E11.21 Type 2 diabetes mellitus with diabetic nephropathy; Z79.4 Long term (current) use of insulin
CPT/HCPCS: 36415; 80053; 80061; 82043; 82570; 82947; 83036; 99212

== ENCOUNTER 2024-11-09 09:35 | Outpatient (AMB) | payer OTHER, SELFPAY ==
[2024-11-09 09:37] VITALS: BP 110/74; PULSE 80; O2SAT 95; BMI 33.6
--- NOTE | 2024-11-09 09:37 | MHC.OFFVIS ---
Vital Signs 11/09/24 09:37 Height 5 ft 9 in Weight 227 lb 11.8 oz BMI 33.6 BP 110/74 Blood Pressure Location Rt brachial Position Sitting Pulse 80 Pulse Source Pulse Oximeter Pulse Oximetry (%) 95 Oxygen Delivery Method Room Air Intake Visit Reasons: DM Intake Note: Patient present today for Type 2 Diabetes Mellitus Last Diabetic eye exam: 02/2024 Last Podiatry Visit: 09/2024 Random Glucose: 144 mg/dl HgA1C: 8.2% 09/28/24 Personal Investment Adviser Required: No Accompanied by: Self / Same As Patient Allergies morphine (MORPHINE) Allergy (Severe, Verified 11/09/24 09:42) PT STATES FLAT-LINED -WAS IN W/CP Medication List - Last Reconciled 11/09/24 by Alaina Coleman PA-C acetaminophen (Tylenol Extra Strength) 1,000 mg (2 x 500 mg) PO QID PRN albuterol sulfate 90 mcg/actuation (Ventolin HFA) 2 puffs inhalation Q6H PRN amitriptyline 25 mg PO BEDTIME aspirin (Adult Low Dose Aspirin) 81 mg PO DAILY blood sugar diagnostic (FreeStyle Lite Strips) 4 times a day blood-glucose meter (FreeStyle Lite Meter kit) 4 times a day blood-glucose meter (FreeStyle [place] Lite kit) As directed calcium carbonate-vitamin D3 500 mg-15 mcg (600 unit) 1 tab PO DAILY certolizumab pegol (Cimzia) 400 mg subcut Q2W cholecalciferol (vitamin D3) 50 mcg PO DAILY diabetic supplies, miscellan. diabetic shoes use daily as directed. 1 pair empagliflozin (Jardiance) 25 mg PO QAM ezetimibe 10 mg PO DAILY foot care products Diabetic shoes use daily As directed insulin degludec (Tresiba FlexTouch U-200 insulin) 60 units (0.3 mL) subcut BEDTIME insulin lispro (Humalog KwikPen (U-100) Insulin) 20 units (0.2 mL) subcut TID 90 days lancets (FreeStyle Lancets) 4 times a day leflunomide 20 mg PO DAILY lisinopril 5 mg PO DAILY meloxicam 15 mg PO DAILY metoprolol succinate ER 100 mg PO DAILY omega-3 acid ethyl esters 1 cap PO BID omeprazole 20 mg PO DAILY ondansetron HCl (Zofran) 4 mg PO Q8H PRN pen needle, diabetic 1 ea miscellaneous .5 times a day 30 days pregabalin (Lyrica) 50 mg PO BEDTIME primidone 250 mg PO BID rosuvastatin 40 mg PO DAILY semaglutide (Ozempic) 2 mg (0.75 mL) subcut QWEEK sertraline 50 mg PO DAILY warfarin 5 mg PO HPI HPI DM: Details: Patient is a 63-year-old male with a significant past medical history hypertension, hyperlipidemia, 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 Endo: His last A1c was 7.8. He is currently on Tresiba U200 60 units at bedtime, humalog 15 units TID, Ozempic 2 mg, jardiance 10 mg Metformin not tolerated with GI sx. Believes he has tried trulicity as well but cannot recall. He states when he takes novolog his glucose jumps up about 50 points and takes 2 hrs to start to lower the numbers. He also gets pain with injections. CGM-average glucose 210, GMI 8.3%. very high 29%, high 26%, in range 45%, hypoglycemic 0%, very low 0%. He has glucose tabs and candy to correct the lows. He is on an JOVANA-inhibitor, statin and pregabalin for his neuropathy. CV: Blood pressure today in the office is 110/74. He is on lisinopril 5 mg, metoprolol 100 mg. He is on Crestor 40 mg and Zetia 10 mg. Last LDL was 60. [facility] Medical History (Updated 03/19/24 @ 11:32 by Alaina Coleman PA-C) Vitamin D deficiency HTN (hypertension) HLD (hyperlipidemia) T2DM (type 2 diabetes mellitus) Diabetes type 2, uncontrolled Obesity (BMI 30-39.9) Dyslipidemia Diabetic nephropathy associated with type 2 diabetes mellitus Diabetic neuropathy associated with type 2 diabetes mellitus group home (current) use of insulin Surgical History History of open reduction and internal fixation (ORIF) procedure History of ear surgery History of carpal tunnel surgery of left wrist History of intraocular lens implant Hx of vasectomy Hx of appendectomy Hx of hernia repair Hx of arthroscopy of knee History of left nephrectomy Family History Father No problems noted. Mother FH: ovarian cancer in first degree relative Diabetes Social History Alcohol intake: former Patient Tobacco Use Status: Former Tobacco user Years Smoked: quit at 31 years old Substance Use Type: Marijuana Physical Exam Vital Signs: Last Vital Signs Pulse 80 11/09/24 09:37 BP 110/74 11/09/24 09:37 Pulse Ox 95 11/09/24 09:37 Oxygen Delivery Method Room Air 11/09/24 09:37 BMI result Body Mass Index 33.6 Const Orientation/consciousness: patient oriented x3 HEENT Ears: hearing grossly normal bilaterally Neck Thyroid: Thyroid normal Lymphatic: no lymphadenopathy noted Resp Auscultation: clear to auscultation bilaterally Cardio Rate: regular rate Rhythm: regular rhythm Heart sounds: S1 normal heart sound present and S2 normal heart sound present GI Inspection: Yes normal to inspection Palpation (GI): Soft to palpation and Other GI palpation findings present (nontender, no cva tenderness) Auscultation: normoactive bowel sounds Rectal Exam - Male: Yes deferred Skin General skin exam: no rashes or lesions noted Neuro General: patient oriented x3, gait normal and no focal motor deficits Results Reviewed Results Reviewed: Laboratory Last Values Glucose (Clinic) 144 mg/dL (60-115) H 11/09/24 09:45 Assessment & Plan Assessment & Plan (1) Diabetic nephropathy associated with type 2 diabetes mellitus: Code(s): E11.21 - Type 2 diabetes mellitus with diabetic nephropathy Category: Medical Plan: Increase humalog to 20 units with meals continue tresiba 60 units daily continue ozempic 2 mg weekly increase jardiance to 25 mg Glucagon ordered to use if needed. Has glucose tabs at home. (2) HTN (hypertension): Code(s): I10 - Essential (primary) hypertension Category: Medical Qualifiers: Hypertension type: unspecified Qualified Code(s): I10 - Essential (primary) hypertension Plan: wnl continue current plan Medications: New empagliflozin (Jardiance) 25 mg PO QAM 90 tabs 3RF glucagon 3 mg/actuation 3 mg intranasal ONCE PRN 2 ea 0RF hypoglycemia Changed From insulin lispro (Humalog KwikPen (U-100) Insulin) 15 units (0.15 mL) subcut TID 90 days 45 mL 2RF To insulin lispro (Humalog KwikPen (U-100) Insulin) with meals 20 units (0.2 mL) subcut TID 54 mL 2RF 90 days Discontinued empagliflozin (Jardiance) Discontinued Reason: Duplicate 10 mg PO QAM 90 tabs 1RF Coding Level of Care Code Est Pt Level 4 (44899) Complex EM visit Add On G2211 Diagnoses Diabetic nephropathy associated with type 2 diabetes mellitus E11.21 Hypertension, unspecified type I10 Hypertension type: unspecified
[2024-11-09 09:49] LABS: Glucose, Whole Blood 144 mg/dL (60-115)
--- OUTSIDE RECORDS SUMMARY | 2024-11-09 10:04 | XMS_ITS | Clinical Summary ---
Author Organization [facility] Facility Address [address] [place] [address] Care Team Providers Care Stamp Maker Name Role Phone Justen العلي MD Primary Care Provider [phone] Allergies Active Allergy Reactions Criticality Noted Date [...] complete this topic Insurance ([id number]) Medicaid [place] [facility] ([id number]) [place] Care Teams Stamp Maker Relationship Specialty Start Date End Date Justen العلي MD [address] [place] [address] [place] [address] PCP - General Internal Medicine 09/16/21
== END 2024-11-09 10:09 | disposition home or self-care (01) ==
LOC: HO.ENCR 09:36
PROVIDERS: PCP Family Medicine; Visit Provider Physician Assistant
DX: E11.21 Type 2 diabetes mellitus with diabetic nephropathy (principal); I10 Essential (primary) hypertension

== ENCOUNTER → 2024-11-09 09:35 | Outpatient (BNVA) | payer OTHER, SELFPAY | PROVIDERS: PCP Family Medicine; Visit Provider Physician Assistant | DX: E11.21 Type 2 diabetes mellitus with diabetic nephropathy (principal); E11.40 Type 2 diabetes mellitus with diabetic neuropathy, unspecified; I10 Essential (primary) hypertension; E78.5 Hyperlipidemia, unspecified; Z79.84 Long term (current) use of oral hypoglycemic drugs | CPT/HCPCS: 82947; 99212 ==

== ENCOUNTER 2025-01-09 11:32 | Outpatient (AMB) | payer OTHER, SELFPAY ==
--- OUTSIDE RECORDS SUMMARY | 2024-06-15 09:45 | XMS_ITS ---
Author Organization [facility] Address [address] [place] [address] Care Team Providers Care Instructor Physical Name Role Phone Severiano POSADAS, Justen Primary Care Provider UnavailTrevor Phan Unavailable [phone] REASON FOR VISIT Seen Sooner Encounters Encounter Location Date Provider Diagnosis [facility] [address] [place] [address] 06/15/2024 Trevor Daniels Plan Of Treatment Next Appt Details Provider Name:Trevor Daniels , 01/18/2025 10:30:00 AM, [address] [place], [address], Progress Notes * Octavio RICCIDOB: [birth year] (64 yo M)Acc No.[id number]:06/15/2024 Progress Note Patient: Keo BENTLEYOctavio Provider: Eze Daniels DPM :1960 A ge:63 Y S ex:Male Date:06/15/2024 Address:[address] [place], [place] [phone] Pcp:Justen العلي MD Subjective: * Chief Complaints: [...] 06/15/2024 Generated for Taty juarez/Lisa/Fernandez on: 0 01/09/2025 12:32 PM EDT
--- NOTE | 2025-01-09 11:34 | MHC.PC.OV ---
Vital Signs 01/09/25 11:44 Height 5 ft 9 in Weight 100.698 kg BMI 32.8 BP 160/88 H Respiration 16 Pulse 84 Pulse Source Pulse Oximeter Temp 97.5 F Temp Source Temporal Artery Scan Pulse Oximetry (%) 96 Oxygen Delivery Method Room Air Intake Visit Reasons: 3 MO F/UP - SAMUELS PT - see comments Car Dispatcher Required: No Accompanied by: Daughter Allergies morphine (MORPHINE) Allergy (Severe, Verified 01/09/25 11:34) PT STATES FLAT-LINED -WAS IN W/CP Tobacco use date assessed: 01/09/25 Fall risk assessment: 2 + Falls in past year Last assessed Fall Risk: 01/09/25 Dental Screening Dental Screen Date: 01/09/25 Did you have a dental visit in the last 12 months?: Yes Did you have a dental problem in the last 6 months where you did not have access to dental care?: No Was dental information given to patient?: No (Dentures) HPI HPI Comments History of Present Illness Details 64-year-old male with remote history of DVT/PE, type 2 diabetes with diabetic polyneuropathy and nephropathy, osteoarthritis, hypertension, GERD, IBS, obstructive sleep apnea, hypercholesterolemia, essential tremor presents to the office today accompanied by his daughter, iV for management of chronic conditions and to establish care. DVT/PE-right lower extremity about 15 years ago. Previously following with Dr. Collins at [facility]. Currently on coumadin Type 2 diabetes-complicated by polyneuropathy and nephropathy. Last hemoglobin A1c 8.2%. Following with endocrinology. Currently on Tresiba 60 units at bedtime and Ozempic 2 mg weekly. No longer using prandial insulin. No longer using CGM Essential tremor-worsening. Now requiring the use of bubble packs. On primidone and Lyrica Hypercholesterolemia-on Zetia and rosuvastatin Hypertension-on metoprolol, lisinopril Basal cell carcinoma-newly diagnosed. On left nose, back, chest. Following with [facility] dermatology for Mohs procedure Concerns: Having difficulty sleeping due to anxiety. Feels very antsy at night. Feels depressed, lost several years ago. PHQ-9 score 15, MALATHI 7 score 15. Was having some SI, but moved in with daughter 2 years ago which has helped and thoughts resolved. Initially was in therapy but stopped this. Has daughter and grandchildren for social supports. Not doing much else watching TV and staying around the house. Hoping to start walking again. Used to bike, fish. Currently on 100mg sertraline but feels it was helping, now not so much. Health maintenance: Last colonoscopy 01/2018. Overdue ROS: General: No fevers, malaise, unintentional weight loss HEENT: No blurred vision, diplopia. No sore throat, nasal congestion, rhinorrhea, sinus pain, ear pain Cardiovascular: No chest pain, palpitations, or leg edema Respiratory: No shortness of breath, wheezing, cough GI: No abdominal pain, nausea, vomiting, diarrhea, constipation, melena, hematochezia : No dysuria, hematuria, increased urinary frequency, decreased urinary output MSK: No myalgia, back pain Neuro: No headaches, weakness, paresthesias Psych: see hpi Skin: No rashes or lesions EXAM: Constitutional - Awake and Alert, No apparent distress Eyes - PERRL Cardiovascular - S1S2, RRR, No edema Respiratory - Normal lung expansion, Normal respiratory effort, No respiratory distress, CTA bilaterally Extremities - no calf tenderness bilaterally, no swelling Skin - Warm/Dry Neurological - Alert & oriented x3 Psychological - Appropriate affect [facility] Medical History (Updated 01/09/25 @ 12:33 by MARIELOS Forrest) Major depressive disorder Vitamin D deficiency HTN (hypertension) HLD (hyperlipidemia) T2DM (type 2 diabetes mellitus) Diabetes type 2, uncontrolled Obesity (BMI 30-39.9) Dyslipidemia Diabetic nephropathy associated with type 2 diabetes mellitus 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 Mother FH: ovarian cancer in first degree relative Diabetes Social History Housing: House (Lives with daughter) Alcohol intake: former Patient Tobacco Use Status: Former Tobacco user (Quite in 1989) Years Smoked: quit at 31 years old e-Cigarette/Vaping Use: Never Used Substance Use Type: Marijuana service: No Current occupational status: retired and disabled Cognitive needs: Yes (Cane and walker PRN long distances) Vision needs: Yes (Reading glasses) Questionnaire PHQ-9 Over the last 2 weeks, how often have you been bothered by any of the following problems? 1. Little interest or pleasure in doing things: nearly every day 2. Feeling down, depressed, or hopeless: nearly every day 3. Trouble falling or staying asleep, or sleeping too much: nearly every day 4. Feeling tired or having little energy: nearly every day 5. Poor appetite or overeating: nearly every day 6. Feeling bad about yourself - or that you are a failure or have let yourself or your family down: not at all 7. Trouble concentrating on things, such as reading the newspaper or watching television: not at all 8. Moving or speaking so slowly that other people could have noticed. Or the opposite - being so fidgety or restless that you have been moving around a lot more than usual: not at all 9. Thoughts that you would be better off or of hurting yourself in some way: not at all Total score: 15 Depression Screening Interpretation: Positive Depression Screening Done: Yes 10403 - PHQ-9 Billing: Yes Source: Developed by Drs. Clark Elizondo, Sigrid Joshi, Cristiano Pisano and colleagues, with an educational julisa from [employer]. Thrive Questionnaire Date Thrive assessed: 01/09/25 I am a: Patient What is your living situation today?: I have a steady place to live Within the past 12 months, did the food you bought not last and you didn't have the money to get more?: Never true Within the past 12 months, did you worry whether your food would run out before you got money to buy more?: Never true Do you have trouble paying for medicines?: No Do you have trouble getting transportation to medical appointments?: No Do you have trouble paying your heating and electricity bill?: No Do you have trouble taking care of your child, family member or friend?: No Do you have trouble with day-to-day activities such as bathing, preparing meals, shopping, managing finances, etc.?: No Are you currently unemployed and looking for a job?: No Are you interested in more education?: No Please select the resources that you would like help with: None THRIVE Score: 0 MALATHI-7 AMB Questionnaire MALATHI-7 Date MALATHI - 7 assessed: 01/09/25 Feeling nervous, anxious, or on edge: 3 = Nearly every day Not being able to stop or control worryin = Nearly every day Worrying too much about different things: 3 = Nearly every day Trouble relaxin = Nearly every day Being so restless that it is hard to sit still: 1 = Several days Becoming easily annoyed or irritable: 1 = Several days Feeling afraid as if something awful might happen: 1 = Several days Total MALATHI-7 score (0-4 normal; 5-9 mild; 10-14 moderate; 15-21 severe): 15 Source: Developed by Drs. Clark Elizondo, Sigrid Joshi, Cristiano Pisano and colleagues, with an educational julisa from [employer]. MALATHI-7 Assessment Billing MALATHI-7 Assessment Tool: MALATHI-7 Assessment 63642 Physical exam (Primary Care) Vital Signs: Last Vital Signs Temp 97.5 F 01/09/25 11:44 Pulse 84 01/09/25 11:44 Resp 16 01/09/25 11:44 BP 160/88 H 01/09/25 11:44 Pulse Ox 96 01/09/25 11:44 Oxygen Delivery Method Room Air 01/09/25 11:44 BMI result Body Mass Index 32.8 Tobacco/Smoking Status: Tobacco use Status Tobacco use date assessed 01/09/25 01/09/25 11:48 Patient Tobacco Use Status Former Tobacco user (Quite 01/09/25 11:48 in 1989) e-Cigarette/Vaping Use Never Used 01/09/25 11:48 PHQ-9: PHQ-9 Score PHQ-9: Total score 15 01/09/25 11:48 Depression Screening Interpretation: Positive Thrive Assessment: Date of Thrive Assessment Date Thrive assessed 01/09/25 01/09/25 11:48 Coding Level of Care Code New Pt Level 4 (07089) Complex EM visit Add On G2211 Diagnoses Major depressive disorder F32.9 Hypertension, unspecified type I10 Hypertension type: unspecified Diabetic polyneuropathy associated with type 2 diabetes mellitus E11.42 Diabetes mellitus complication detail: diabetic polyneuropathy Additional Codes PHQ-9 - 67263 - PHQ-9 Billing: Yes ([id number]) MALATHI-7 Assessment Billing - MALATHI-7 Assessment Tool: MALATHI-7 Assessment 54448 ([id number]) Assessment & Plan Assessment & Plan (1) Major depressive disorder: Code(s): F32.9 - Major depressive disorder, single episode, unspecified Category: Medical Plan: Add bupropion 150 mg XR and can continue sertraline 100 mg daily. Counseled on side effects. Add trazodone nightly as needed for insomnia. Follow-up in 1 month. Also recommend seeking out a counselor (2) HTN (hypertension): Code(s): I10 - Essential (primary) hypertension Category: Medical Qualifiers: Hypertension type: unspecified Qualified Code(s): I10 - Essential (primary) hypertension Plan: Continue current therapies (3) Diabetic neuropathy associated with type 2 diabetes mellitus: Code(s): E11.40 - Type 2 diabetes mellitus with diabetic neuropathy, unspecified Category: Medical Qualifiers: Diabetes mellitus complication detail: diabetic polyneuropathy Qualified Code(s): E11.42 - Type 2 diabetes mellitus with diabetic polyneuropathy Plan: Hemoglobin A1c ordered. Follow-up with endocrinology as scheduled. Continue Tresiba as well as Ozempic and Jardiance. Annual exams. Weight loss efforts discussed Plan Follow-up in the office in 1 month to follow-up on depression/anxiety. Urinalysis also ordered due to dysuria Orders: Orders Hemoglobin A1c Today E11.21 - Type 2 diabetes mellitus with diabetic nephropathy, E66.9 - Obesity, unspecified, E78.5 - Hyperlipidemia, unspecified, I10 - Essential (primary) hypertension UA CC w/rflx Micro + Cult Today R30.0 - Dysuria Basic Metabolic Panel Today E11.21 - Type 2 diabetes mellitus with diabetic nephropathy, E66.9 - Obesity, unspecified, E78.5 - Hyperlipidemia, unspecified, I10 - Essential (primary) hypertension Lipid Panel Today E11.21 - Type 2 diabetes mellitus with diabetic nephropathy, E66.9 - Obesity, unspecified, E78.5 - Hyperlipidemia, unspecified, I10 - Essential (primary) hypertension Liver Panel Today E11.21 - Type 2 diabetes mellitus with diabetic nephropathy, E66.9 - Obesity, unspecified, E78.5 - Hyperlipidemia, unspecified, I10 - Essential (primary) hypertension Medications: New bupropion HCl XL (Wellbutrin XL) 150 mg PO QAM 90 tabs 1RF trazodone 25 - 50 mg (0.5 - 1 x 50 mg) PO BEDTIME PRN 90 tabs 1RF sleep
[2025-01-09 11:44] VITALS: BP 160/88; PULSE 84; RESP 16; TEMP 36.4; O2SAT 96; BMI 32.8
--- OUTSIDE RECORDS SUMMARY | 2025-01-09 12:32 | XMS_ITS | Clinical Summary ---
Author Organization [facility] Facility Address [address] [place] [address] Care Team Providers Care Agile Tester Name Role Phone Justen العلي MD Primary Care Provider [phone] Allergies Active Allergy Reactions Criticality Noted Date [...] 2 - PCV) 01/10/2011 01/10/2010 Influenza Vaccine (#1) 2025 03/03/2021 Pneumococcal Vaccine: Peds ( 0 to 5 Years) and At-Risk Patients (6 to 49 Years) Discontinued 01/10/2010 Hepatitis B Vaccine Aged Out No longe r eligible based on patient's age to complete this topic Insurance [facility] ([id number]) [place] [facility] ([id number]) [place] Care Teams Agile Tester Relationship Specialty Start Date End Date Justen العلي MD [address] [place] [address] [place] [address] PCP - General Internal Medicine 09/16/21
--- OUTSIDE RECORDS SUMMARY | 2025-01-09 12:32 | XMS_ITS | Clinical Summary ---
Author Organization [facility] Address [address] [place] [address] Phone Care Team Providers Care Infrastructure Administrator Name Role Phone Justen العلي MD Primary Care Provider Allergies Active Allergy Reactions Criticality Noted Date Comments Morphine High 12/17/2024 Medications amitriptyline (ELAVIL) 25 MG tablet Take 25 mg by mouth nightly at bedtime. 5 Active ezetimibe (ZETIA) 10 mg tablet Take 10 mg by mouth daily. 5 Active JARDIANCE 25 mg tablet Take 25 mg by mouth daily. 5 Active lisinopril (PRINIVIL,ZESTRIL ) 5 MG tablet Take 5 mg by mouth daily. 5 Active meloxicam (MOBIC) 15 MG tablet Take 15 mg by mouth daily. 5 Active metoprolol succinate (TOPROL-XL) 100 MG 24 hr tablet Take 100 mg by mouth daily. 5 Active omega-3 acid ethyl esters (LOVAZA) 1 gram capsule Take 1 g by mouth daily. 5 Active omeprazole (PRILOSEC) 20 MG capsule Take 20 mg by mouth daily. 5 Active pregabalin (LYRICA) 100 MG capsule Take 100 mg by mouth nightly at bedtime. 5 Active sertraline (ZOLOFT) 100 MG tablet Take 100 mg by mouth daily. 5 Active aspirin 81 MG EC tablet Take 81 mg by mouth daily. 5 Active cholecalciferol (VITAMIN D3) 2,000 unit capsule Take 2,000 Units by mouth daily. 5 Active ANTI-DIARRHEAL, LOPERAMIDE, 2 mg tablet 5 Active rosuvastatin (CRESTOR) 40 MG tablet Take 40 mg by mouth daily. 5 Active insulin pen needles, disposable, 32 gauge x Ndle 5 Active insulin degludec U-200 (TRESIBA FLEXTOUCH) 200 unit/mL (3 mL) InPn injection pen 5 Active OZEMPIC 2 mg/dose (8 mg/3 mL) subcutaneous injection pen 5 Active warfarin (COUMADIN) 5 MG tablet 5 Active primidone (MYSOLINE) 250 MG tabletIndications :Essential tremor Take 1 pill in the morning and 2 pills in the evening (250mg in the AM and 500mg in the PM) 90 tablet 5 Active primidone (MYSOLINE) 250 MG tabletIndications :Essential tremor Take 2 tablets (500 mg total) by mouth 2 (two) times a day. 120 tablet 11 5 Active primidone (MYSOLINE) 250 MG tablet Take 250 mg by mouth. 5 12/18/19 25 Discontinu ed(Reorder ) Encounters Date Type Department Care Team Description 12/28/2024 Telephone [facility] Neurology [address] [place] [address] [place] [address] Jesse العلي MD Medication Problem 12/17/2024 11:30 AM EDT Office Visit [facility] Neurology [address] [place] [address] [place] [address] Jesse العلي MD Essential tremor (Primary Dx) from Last 3 Months Social History Tobacco Use Types Packs/Day Years Used Date Smoking Tobacco: Never Assessed Education Answer Date Recorded Are you interested in more education? Not on jacob e 01/18/2024 Are you concerned about learning? Not on file 01/18/2024 No 01/18/2024 No 01/18/2024 Digital Access Answer Date Recorded No 01/18/2024 No 01/18/2024 Reliable internet access at home? Not on file 01/18/2024 Device with a working camera? Not on file Sex and Gender Information Value Date Recorded Sex Assigned at Not on file Legal Sex Male 2:25 PM EDT Gender Identity Not on file Sexual Orientation Not on file Plan of Treatment Upcoming Encounters Date Type Department Care Team (Late st Contact Info) Description 06/20/2025 11:00 AM EST Office Visit [facility] Neurology [address] [place] [address] Jesse العلي MD 22 [facility], 2nd [place] [address] [email or web address] Health Maintenance Due Date Last Done Comments Adult Td,Tdap Booster 1958 CREATININE LEVEL 1958 LIPID PANEL 1958 POTASSIUM LEVEL 1958 DEPRESSION SCREENING 1970 SMOKING Hx and SMOKELESS TOB ACCO SCREENING 11/29/1971 HEPATITIS C SCREENING 1976 COLOGUARD 11/29/2003 COLONOSCOPY 11/29/2003 COLORECTAL CANCER SCREENING 11/29/2003 FIT TEST 11/29/2003 FOBT 11/29/2003 SIGMOIDOSCOPY 11/29/2003 VIRTUAL COLONOSCOPY 11/29/2003 PNEUMOCOCCAL VACCINES (50+ y ears) (1 of 1 - PCV) 2008 ZOSTER VACCINES (1 of 2) 2008 RSV VACCINE (1 - Risk 60-74 years 1-dose series) 2018 COVID-19 VACCINE (1 - 2023-2 5 season) 2024 HEPATITIS A VACCINES Aged Out No long er eligible based on patient's age to complete this topic HIB VACCINES Aged Out No longer eligi ble based on patient's age to complete this topic MENINGOCOCCAL VACCINES (ACWY) Aged Out No longer eligible based on patient's age to complete this topic MENINGOCOCCAL VACCINES (B) Aged Out N o longer eligible based on patient's age to complete this topic Medical Devices Not on file Insurance [facility] ONE CARE MEDICARE REPLACEMENT CARE MEDICARE REPLACEMENT CARE MEDICARE REPLACEMENT CARE MEDICARE REPLACEMENT [facility] ONE CARE MEDICARE REPLACEMENT [facility] CARE MEDICARE REPLACEMENT Care Teams Infrastructure Administrator Relationship Specialty Start Date End Date Justen العلي MD [address] [place] [address] [place] [address] PCP - General Internal Medicine 01/17/24 Additional Source Comments The information contained in this document represents components of the legal health record. It is not the complete legal health record.[facility]
--- OUTSIDE RECORDS SUMMARY | 2025-01-09 12:33 | XMS_ITS | Patient Health Record ---
[facility] Organization [facility] Address [address] [place] [address] Care Team Providers Care Ladies Suit Operator Name Role Phone Justen العلي MD Primary Care Provider Unavailab Trevor Amador Unavailable [phone] Allergies Allergen (clinical drug ingredient) Drug/Non Drug Allergy documented on EMR Reaction Allergy Type Onset Date Status morphine Morphine Drop Drug Allergy Active Results Component Value Reference Range Notes HEMOGLOBIN A1C (GLYCOHEMOGLO BIN) Reviewed date:07/10/2024 10:40:20 AM Interpretation: Performing Lab: Notes/Report: HEMOGLOBIN A1C % (HH) 7.4 HEMOGLOBIN A1C (GLYCOHEMOGLO BIN) Reviewed date:10/12/2024 11:34:24 AM Interpretation: Performing Lab: Notes/Report: HEMOGLOBIN A1C % (HH) 8.2 Reason For Referral No Information Medications Medication SIG (Take, Route, Frequency, Duration) Notes Start Date End Date Status Triamcinolone Acetonide 0.1 % as directed Externally Twice a day Not-Taking Lantus Not-Taking immodium 1 tab Oral; Duration: 14 days Active Leflunomide 20 MG 1 tablet Orally Once a day; Duration: 30 day(s) Active Lisinopril 5 MG 1 tablet Orally Once a day; Duration: 30 day(s) Active Lyrica 50 MG 1 capsule Orally Twice a day Active Metoprolol Succinate ER 100 MG 1 tablet Orally Once a day; Duration: 30 day(s) Active Nitroglycerin 0.4 MG Sublingual; Duration: 25 PRN Active NovoLOG Active Omeprazole 20 MG 1 capsule 30 minutes before morning meal Orally Once a day; Duration: 30 day(s) Active Primidone 250 MG 1 tablet Orally Twice a day; Duration: 30 day(s) Active Rosuvastatin Calcium 40 MG 1 tablet Orally Once a day; Duration: 30 day(s) Active Sertraline HCl 100 MG 1 tablet Orally Once a day; Duration: 30 day(s) Active Tresiba Active Ventolin HFA Active Warfarin Sodium Acti ve Zofran 4 MG 1 tablet Orally PRN 02/18/2021 Active Ozempic Active Hydrocortisone 2.5 % 1 application Externally Twice a day; Duration: 30 days Active Ammonium Lactate 12 % 1 application to affected area Externally to feet Twice a day; Duration: 30 days Active Extra Depth Orthopedic Shoes (1 Pair) with Customized Heat Molded Multidensity Innersoles (3 Pair) as directed Dx: NIDDM/Polyneuropath y (E11.42), Hammertoe Foot Deformity (M20.41,M20.42), Preulcerative Skin Lesion(s) (L85.1 12/20/2023 Active Advair HFA 230-21 MCG/ACT 2 puffs Inhalation Twice a day Active Fosamax 70 MG 1 tablet 30 minutes before the first food, beverage or medicine of the day with plain water Orally; Duration: 30 day(s) Not-Taking Amitriptyline HCl 25 MG 1 tablet at bedtime Orally Once a day; Duration: 30 day(s) Active Meloxicam 7.5 MG 1 tablet Orally Once a day; Duration: 30 day(s) Not-Taking Aspirin 81 MG 1 tablet Orally Once a day; Duration: 30 day(s) Active Remicade 1100 mg infusion monthly Not-Taking Calcium + D Active Ezetimibe 10 MG 1 tablet Orally Once a day; Duration: 30 day(s) Active Immunizations Vaccine Route Administration Date Status Comme nts Influenza Unknown 03/03/2021 Administered Influenza Unknown 02/12/2022 Administered COVID-19 Moderna Vaccine Unknown 04/03/2021 Administered 1st 06/27/2020 2nd 08/04/2020 Social History Tobacco Use: Social History Observation [...] Problem Acquired hammer toe of right foot (0158932428703609 ) Other hammer toe(s) (acquired), right foot (M20.41) Active confirmed Response to treatment, Improvemen t Problem Acquired hammer toe of left foot (3135228751256907 ) Other hammer toe(s) (acquired), left foot (M20.42) Active confirmed Response to treatment, Improvemen t Problem Polyneuropathy due to type 2 diabetes mellitus (502854540) Type 2 diabetes mellitus with diabetic polyneuropathy (E11.42) Active confirmed Vital Signs Blood pressure diastolic 65 mm Hg 10/12/2024 Height 5ft 9in in 10/12/2024 Blood pressure systolic 128 mm Hg 10/12/2024 Weight 217 lbs 10/12/2024 BMI 32.04 kg/m2 10/12/2024 Procedures Procedure Date Ordered Date Performed Result Body Sit e 77283-REQQWSX NAIL, 6 OR MORE 07/10/2024 N/A 93740-OQSV SKIN LESIONS, OVER 4 07/10/2024 N/A 34988-YRZBMGC NAIL, 6 OR MORE 10/12/2024 N/A 90740-HXGF SKIN LESIONS, OVER 4 10/12/2024 N/A Encounters Encounter Location Date Provider Diagnosis [address] [address] 07/10/2024 Trevor Daniels Type 2 diabetes mellitus with diabetic polyneuropathy E11.42 ; Tinea unguium B35.1 ; Other hammer toe(s) (acquired), right foot M20.41 and Other hammer toe(s) (acquired), left foot M20.[address] [address] 10/12/2024 Trevor Daniels Type 2 diabetes mellitus with diabetic polyneuropathy E11.42 and Tinea unguium B35.[address] [address] 03/20/2024 Trevor Daniels [address] [address] 05/04/2024 Trevor Frances Assessments Encounter Date Diagnosis (ICD Code) Assessment Notes Treatment Notes Treatment Clinical Notes Section Notes 07/10/2024 Type 2 diabetes mellitus with diabetic polyneuropathy (ICD-10 - E11.42) 07/10/2024 Tinea unguium (ICD-10 - B35.1) 10/12/2024 Type 2 diabetes mellitus with diabetic polyneuropathy (ICD-10 - E11.42) 10/12/2024 Tinea unguium (ICD-10 - B35.1) 07/10/2024 Other hammer toe(s) (acquired), right foot (ICD-10 - M20.41) Response to treatment,Impro vement 07/10/2024 Other hammer toe(s) (acquired), left foot (ICD-10 - M20.42) Response to treatment,Impro vement Plan Of Treatment Pending Test Test Name Order Date 66211-VDDEDCV NAIL, 6 OR MORE 02/20/2021 59387-WIMRRRX NAIL, 6 OR MORE 06/12/2021 34946-IZGYCZH NAIL, 6 OR MORE 08/21/2021 99140-ZZCWFYC NAIL, 6 OR MORE 11/10/2021 97871-DPRAGDD NAIL, 6 OR MORE 01/19/2022 91103-SMZMPDD NAIL, 6 OR MORE 03/30/2022 00951-YDQYUVR NAIL, 6 OR MORE 08/27/2022 68240-XJHPEJR NAIL, 6 OR MORE 11/26/2022 57129-XTTWLTS NAIL, 6 OR MORE 02/15/2023 47576-XYBSBIM NAIL, 6 OR MORE 04/29/2023 04413-RYDWUGI NAIL, 6 OR MORE 07/12/2023 78137-FTPYEXB NAIL, 6 OR MORE 12/20/2023 08175-QWHGREO NAIL, 6 OR MORE 07/10/2024 40332-OEMNOCL NAIL, 6 OR MORE 10/12/2024 93786-ZURB SKIN LESIONS, OVER 4 10/13/19 25 44824-OEZE SKIN LESIONS, OVER 4 07/10/19 25 05964-UOVZ SKIN LESIONS, OVER 4 12/20/19 24 06924-BALE SKIN LESIONS, OVER 4 07/12/19 24 64131-UPKW SKIN LESIONS, OVER 4 04/29/20 23 87409-JTIW SKIN LESIONS, OVER 4 02/16/20 23 15288-ZCQA SKIN LESIONS, OVER 4 11/27/19 23 17428-KSXP SKIN LESIONS, OVER 4 08/28/19 23 57087-OSKB SKIN LESIONS, OVER 4 03/30/20 22 03655-CAAJ SKIN LESIONS, OVER 4 01/20/20 22 41043-OVMM SKIN LESIONS, OVER 4 11/11/19 22 72158-SYQV SKIN LESIONS, OVER 4 08/22/19 22 36880-CPAX SKIN LESIONS, OVER 4 02/21/20 21 24489-PHTT SKIN LESIONS, OVER 4 06/12/19 Next Appt Details Provider Name:Trevor Kelley Frances , 01/18/2025 10:30:00 AM, [address] [place] [address], [phone], Insurance Providers Payer Name Payer Address Payer Phone Subscriber Number Group Number Insured Name Patient Relationship to Insured Coverage Start Date Coverage End Date [facility] SCO Claims [address] [place] [phone] [id number] Octavio Elder Self - patient is the insured Medical (General) History Medical History History ICD Code Angina Anxiety Back,Hip,and Knee pain Cataracts Epilepsy Heart disease High blood pressure Kidney disease Numbness Poor circulation Psoriasis/eczema type II diabetes Surgical History Surgery Date(Month/Year) Eye Surgery - Glaucoma 08/09/2022
--- OUTSIDE RECORDS SUMMARY | 2025-01-09 12:33 | XMS_ITS | Encounter Summary ---
Author Organization [facility] Address [address] [place] [address] [place] [address] Phone Care Team Providers Care Family Services Specialist Name Role Phone Justen العلي MD Primary Care Provider [phone] Reason for Visit * Reason Onset Date Comments Medication Problem 12/28/2024 Encounter Details Date Type Department Care Team (Late st Contact Info) Description 12/28/2024 Telephone [facility] Neurology [address] [place] [address] Jesse العلي MD [address] [facility], 2nd [place] [address] [email or web address] Medication Problem Social History Tobacco Use Types Packs/Day Years [...] on file Sexual Orientation Not on file documented as of this encounter Progress Notes * Taty Mac MA - 12/31/2024 9:54 AM EDT Called [facility] at [phone] and left a message to contact patients daughter regarding the patients Primidone 250 mg tablet and stated that they are having a hard time getting the medication at the pharmacy. Called patients daughter Vi and they state that they have called the pharmacy and have left 4 messages and they went to the pharmacy and they are supposed to be to be open until 7 and no one was in the building. They state if they are not able to get it resolved they will call in to get the prescription sent to [facility] in [place]. I advised that is out of the office until 01/15 and that I w ould call over to the patients PCP office to have them fill it. Patients PCP has retired but they were transferred to a different PCP within that practice. * Fabienne Duncan - 12/28/2024 3:31 PM EDT Please call patient's daughter, Vi, regarding the patient's RX primidone (MYSOLINE) 250 MG tablet, unable to get through to [facility], even went to location to find the doors locked. [phone] documented in this encounter Plan of Treatment Upcoming Encounters Date Type Department Care Team (Late st Contact Info) Description 06/20/2025 11:00 AM EST Office Visit [facility] Neurology [address] [place] [address] [place] [address] Jsese العلي MD [address] [place] [address], [address] [place] [address] documented as of this encounter Visit Diagnoses Not on filedocumented in this encounter Care Teams Family Services Specialist Relationship Specialty Start Date End Date Justen العلي MD [address] [place] [address] Dr [facility] [address] PCP - General Internal Medicine 01/17/24 documented as of this encounter Additional Source Comments The information contained in this document represents components of the legal health record. It is not the complete legal health record.[facility]
--- OUTSIDE RECORDS SUMMARY | 2025-01-09 12:33 | XMS_ITS | Patient Health Record ---
Author Organization [facility] Address [address] [place] [address] Care Team Providers Care Computer Game Designer Name Role Phone Severiano (RETIRED) Justen POSADAS Primary Care Provider Unavailable Clark Goncalves Unavailable [phone] Reason For Referral No Information Medications Medication SIG (Take, Route, Frequency, Duration) Notes Start Date End Date Status Leflunomide 20 MG 1 tablet Orally Once a day Active Ventolin HFA 108 (90 Base) MCG/ACT 2 puffs as needed Inhalation every 4 hours as needed Active Metoprolol Succinate 100 1 tablet orally once a day Active Sertraline HCl 50 MG 1 tablet Orally Onc e a day Active NovoLOG 100 UNIT/ML 4 units Subcutaneous tid Active Methotrexate 20 1 tablet Oral once a day Not-Taking Coumadin 5 MG 1 tablet Orally as directed Active Rosuvastatin Calcium 20 MG 1 tablet Orally Once a day Active Aspir-81 81 MG 1 tablet Orally Once a day Active Primidone 50 MG 1 tablet Orally once a day Active OXcarbazepine Active Meloxicam 15 MG 1 capsule Orally Onc e a day Active Lisinopril 5 MG 1 tablet Orally Once a day Active Remicade 100 MG as directed Intraven ous monthy Active Lyrica 50 MG 1 capsule Orally Onc e a day Active Lantus 100 UNIT/ML 40 units Subcutaneou s bedtime Active Lansoprazole 30 MG 1 capsule Orally twi ce a day Active Lorazepam 0.5 1 tablet Oral qd Active Social History Alcohol Screen Question Answer Notes Did you have a drink containing alcohol in the p ast year? No Points 0 Interpretation Negative Section Notes: Nonsmoker; rare alcohol Nonsmoker except some mariju smitha nightly; no alcohol Problems Problem Type SNOMED Code ICD Code Onset Dates Problem Status W/U Status Risk Notes Problem 327242309 Encounter for screening for malignant neoplasm of colon (Z12.11) Active confirmed Problem 413939012 History of adenomatous polyp of colon (Z86.010) Active confirmed Problem 175427342 Gastroesophageal reflux disease without esophagitis (K21.9) Active confirmed Problem 399589443 Barretts esophag us without dysplasia (K22.70) Active confirmed Problem 00711647 Diarrhea, unspecified type (R19.7) Active confirmed Plan Of Treatment Pending Test Test Name Order Date GI BIOPSY 01/18/2018 CLOSTRIDIUM DIFF TOXIN A&B (C DIFF) 11/13 STOOL WBC 11/24/2017 GIARDIA AG, STOOL EIA 11/24/2017 OVA & PARASITES (O&P) 11/24/2017 CULTURE, STOOL 11/24/2017 Future Test Test Name Order Date UPPER GI ENDOSCOPY 08/24/2011 COLONOSCOPY 08/24/2011 UPPER GI ENDOSCOPY 11/24/2017 COLONOSCOPY 11/24/2017 Insurance Providers Payer Name Payer Address Payer Phone Subscriber Number Group Number Insured Name Patient Relationship to Insured Coverage Start Date Coverage End Date MEDICARE OF [facility] [address] [place] [address] [phone] [id number] GARY RICCI Self - patient is the insured Medical (General) History Medical History History ICD Code Blood clots in RLE removed by Dr. 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
== END 2025-01-09 12:14 | disposition home or self-care (01) ==
LOC: HO.HMCHD 11:32
PROVIDERS: PCP Family Medicine; Visit Provider Physician Assistant
DX: F32.9 Major depressive disorder, single episode, unspecified (principal); I10 Essential (primary) hypertension; E11.42 Type 2 diabetes mellitus with diabetic polyneuropathy

== ENCOUNTER → 2025-01-09 11:32 | Outpatient (BNVA) | payer OTHER, SELFPAY | PROVIDERS: PCP Family Medicine; Visit Provider Physician Assistant | DX: Z76.89 Persons encountering health services in other specified circumstances (principal); I10 Essential (primary) hypertension; F32.9 Major depressive disorder, single episode, unspecified; E11.42 Type 2 diabetes mellitus with diabetic polyneuropathy; E11.21 Type 2 diabetes mellitus with diabetic nephropathy; E78.00 Pure hypercholesterolemia, unspecified; G25.0 Essential tremor; C44.311 Basal cell carcinoma of skin of nose; C44.519 Basal cell carcinoma of skin of other part of trunk; Z86.711 Personal history of pulmonary embolism; Z86.718 Personal history of other venous thrombosis and embolism; Z79.01 Long term (current) use of anticoagulants; Z79.4 Long term (current) use of insulin; Z79.85 Long-term (current) use of injectable non-insulin antidiabetic drugs; Z79.84 Long term (current) use of oral hypoglycemic drugs; Z79.899 Other long term (current) drug therapy; Z13.31 Encounter for screening for depression; Z13.39 Encounter for screening examination for other mental health and behavioral disorders | CPT/HCPCS: 96127; 99202 ==

== ENCOUNTER 2025-01-11 10:48 | Outpatient (REF) | payer OTHER, SELFPAY ==
--- OUTSIDE RECORDS SUMMARY | 2024-03-20 09:30 | XMS_ITS ---
Author Organization [facility] Address [address] [place] [address] Care Team Providers Care Commodity Management Specialist Name Role Phone Severiano POSADAS, Justen Primary Care Provider UnavailTrevor Phan Unavailable [phone] Encounters Encounter Location Date Provider Diagnosis [address] [address] 03/20/2024 Trevor Daniels Plan Of Treatment Next Appt Details Provider Name:Trevor Daniels , 01/18/2025 10:30:00 AM, [address] [place], [address], Progress Notes * Octavio RICCIDOB: [birth year] (64 yo M)Acc No.[id number]:03/20/2024 Progress Note Patient: Keo BENTLEYOctavio Provider: Eze Daniels DPM :1960 A ge:63 Y S ex:Male Date:03/20/2024 Address:[address] [place], [place] [id number] Pcp:Justen العلي MD Subjective: * Chief Complaints: [...] Daniels DPM Date: 05/20/2023 Generated for Taty juarez/Lisa/Deniitting on: 0 01/11/2025 11:26 AM EDT
--- OUTSIDE RECORDS SUMMARY | 2024-05-04 09:45 | XMS_ITS ---
Author Organization [facility] Address [address] [place] [address] Care Team Providers Care Voice Writing Reporter Name Role Phone Severiano POSADAS, Justen Primary Care Provider UnavailTrevor Phan Unavailable [phone] Encounters Encounter Location Date Provider Diagnosis [address] [address] 05/04/2024 Trevor Daniels Plan Of Treatment Next Appt Details Provider Name:Trevor Daniels , 01/18/2025 10:30:00 AM, [address] [place], [address], Progress Notes * Octavio RICCIDOB: [birth year] (64 yo M)Acc No.[id number]:05/04/2024 Progress Note Patient: Keo BENTLEYOctavio Provider: Eze Daniels DPM :1960 A ge:63 Y S ex:Male Date:05/04/2024 Address:[address] [place], [place] [phone] Pcp:Justen العلي MD Subjective: * Chief Complaints: [...] 07/05/2023 Generated for Taty juarez/Lisa/Deniitting on: 0 01/11/2025 11:27 AM EDT
--- OUTSIDE RECORDS SUMMARY | 2024-06-15 09:45 | XMS_ITS ---
Author Organization [facility] Address [address] [place] [address] Care Team Providers Care Aircraft Structure Mechanic Name Role Phone Severiano POSADAS, Justen Primary Care Provider UnavailTrevor Phan Unavailable [phone] REASON FOR VISIT Seen Sooner Encounters Encounter Location Date Provider Diagnosis [facility] [address] [place] [address] 06/15/2024 Trevor Daniels Plan Of Treatment Next Appt Details Provider Name:Trevor Daniels , 01/18/2025 10:30:00 AM, [address] [place], [address], Progress Notes * Octavio RICCIDOB: [birth year] (64 yo M)Acc No.[id number]:06/15/2024 Progress Note Patient: Keo BENTLEYOctavio Provider: Eze Daniels DPM :1960 A ge:63 Y S ex:Male Date:06/15/2024 Address:[address] [place], [place] [id number] Pcp:Justen العلي MD Subjective: * Chief Complaints: [...] DPM Date: 0 06/15/2024 Generated for Taty juarez/Lisa/Fernandez on: 0 01/11/2025 11:27 AM EDT
--- OUTSIDE RECORDS SUMMARY | 2025-01-11 11:27 | XMS_ITS | Clinical Summary ---
Author Organization [facility] Address [address] [place] [address] Phone Care Team Providers Care Cam Milling Machine Operator Name Role Phone Justen العلي MD Primary Care Provider [phone] Allergies Active Allergy Reactions Criticality Noted Date [...] Type Department Care Team Description 12/28/2024 Telephone [facility] Neurology [address] [place] [address] [place] [address] Jesse العلي MD Medication Problem 12/17/2024 11:30 AM EDT Office Visit [facility] Neurology [address] [place] [address] [place] [address] Jesse العلي MD Essential tremor (Primary Dx) [...] Visit [facility] Neurology [address] [facility] [address] Jesse العلي MD 22 [facility], 2nd [place] [address] [email or web address] Health Maintenance [...] topic Medical Devices Not on file Insurance [facility] ONE CARE MEDICARE REPLACEMENT CARE MEDICARE REPLACEMENT CARE MEDICARE REPLACEMENT CARE MEDICARE REPLACEMENT [facility] ONE CARE MEDICARE REPLACEMENT [facility] CARE MEDICARE REPLACEMENT Care Teams Cam Milling Machine Operator Relationship Specialty Start Date End Date Justen العلي MD [address] [place] [address] [place] [address] PCP - General Internal Medicine 01/17/24 Additional Source Comments The information contained in this document represents components of the legal health record. It is not the complete legal health record.[facility]
--- OUTSIDE RECORDS SUMMARY | 2025-01-11 11:27 | XMS_ITS | Encounter Summary ---
Author Organization [facility] Address [address] [place] [address] [place] [address] Phone Care Team Providers Care Vamper Name Role Phone Justen العلي MD Primary Care Provider [phone] Reason for Visit * Reason Onset Date Comments Medication Problem 12/28/2024 Encounter Details Date Type Department Care Team (Late st Contact Info) Description 12/28/2024 Telephone [facility] Neurology [address] [place] [address] Jesse العلي MD 22 [facility], 2nd [place] [address] [email or web address] Medication Problem Social History Tobacco Use Types [...] 9:54 AM EDT Called [facility] at [phone] and left a message to contact patients [...] in to get the prescription sent to [facility] in [place]. I advised that is out of the [...] to location to find the doors locked. [phone] documented in this encounter Plan of Treatment Upcoming Encounters Date Type Department Care Team (Late st Contact Info) Description 06/20/2025 11:00 AM EST Office Visit [facility] Neurology [address] [place] [address] [place] [address] Jesse العلي MD [address] [place] [address], 2nd [place] [address] documented as of this encounter Visit Diagnoses Not on filedocumented in this encounter Care Teams Vamper Relationship Specialty Start Date End Date Justen العلي MD [address] [place] [address] [facility] [address] PCP - General Internal Medicine 01/17/24 documented as of this encounter Additional Source Comments The information contained in this document represents components of the legal health record. It is not the complete legal health record.[facility]
--- OUTSIDE RECORDS SUMMARY | 2025-01-11 11:27 | XMS_ITS | Patient Health Record ---
Author Organization [facility] Address [address] [place] [address] Care Team Providers Care Director Consumer Affairs Name Role Phone Severiano (RETIRED) Justen POSADAS Primary Care Provider Unavailable Clark Goncalves Unavailable [phone] Reason For Referral No Information Medications Medication [...] Problem Status W/U Status Risk Notes Problem 520514086 Encounter for screening for malignant neoplasm of colon (Z12.11) Active confirmed Problem 674952964 History of adenomatous polyp of colon (Z86.010) Active confirmed Problem 397088184 Gastroesophageal reflux disease without esophagitis (K21.9) Active confirmed Problem 550787173 Barretts esophag us without dysplasia (K22.70) Active confirmed Problem 26990385 Diarrhea, unspecified type (R19.7) Active confirmed Plan [...] Start Date Coverage End Date MEDICARE OF [facility] [address] [place] [address] [id number] GARY RICCI Self - patient is the insured Medical (General) History Medical History History ICD Code Blood clots in RLE removed by Dr. Arzola at [facility] 12/2009 2 OR's in 2000 with stents-no problems s sofia [...]
--- OUTSIDE RECORDS SUMMARY | 2025-01-11 11:27 | XMS_ITS | Clinical Summary ---
Author Organization [facility] Facility Address [address] [place] [id number] Care Team Providers Care Retail Special Event Associate Name Role Phone Justen العلي MD Primary Care Provider [phone] Allergies Active Allergy Reactions Criticality Noted Date [...] patient's age to complete this topic Insurance [facility] ([id number]) [place] [facility] ([id number]) [place] Care Teams Retail Special Event Associate Relationship Specialty Start Date End Date Justen العلي MD [address] [place] [address] [place] [address] PCP - General Internal Medicine 09/16/21
--- OUTSIDE RECORDS SUMMARY | 2025-01-11 11:28 | XMS_ITS | Patient Health Record ---
Author Organization [facility] Address [address] [place] [address] Care Team Providers Care Manager Of Hospital Name Role Phone Justen العلي MD Primary Care Provider Unavailab Trevor Amador Unavailable [phone] Allergies Allergen (clinical drug ingredient) Drug/Non Drug [...] Problem Acquired hammer toe of right foot ([id number]) Other hammer toe(s) (acquired), right foot (M20.41) Active confirmed Response to treatment,I mprovement Problem Acquired hammer toe of left foot ([id number] 25760) Other hammer toe(s) (acquired), left foot (M20.42) Active confirmed Response to treatment,I mprovement Problem Type 2 diabetes mellitus with diabetic polyneuropathy (E11.42) Active confirmed Vital Signs Blood pressure diastolic 65 mm Hg 10/12/2024 Height 5ft 9in in 10/12/2024 Blood pressure systolic 128 mm Hg 10/12/2024 Weight 217 lbs 10/12/2024 BMI 32.04 kg/m2 10/12/2024 Procedures Procedure Date Ordered Date Performed Result Body Sit e 03187-TMUEGYM NAIL, 6 OR MORE 07/10/2024 N/A 03454-MOYM SKIN LESIONS, OVER 4 07/10/2024 N/A 77094-LPCPPXI NAIL, 6 OR MORE 10/12/2024 N/A 40631-IDVY SKIN LESIONS, OVER 4 10/12/2024 N/A Encounters Encounter Location Date Provider Diagnosis [address] [address] 07/10/2024 Trevor Daniels Type 2 diabetes mellitus with diabetic polyneuropathy E11.42 ; Tinea unguium B35.1 ; Other hammer toe(s) (acquired), right foot M20.41 and Other hammer toe(s) (acquired), left foot M20.[address] [address] 10/12/2024 Trevor Daniels Type 2 diabetes mellitus with diabetic polyneuropathy E11.42 and Tinea unguium B35.[address] [address] 03/20/2024 Trevor Daniels [address] [address] 05/04/2024 Trevor Daniels Assessments Encounter Date Diagnosis [...] Treatment Pending Test Test Name Order Date 76446-JXSTDMQ NAIL, 6 OR MORE 02/20/2021 59268-VZNMBBP NAIL, 6 OR MORE 06/12/2021 34435-MPEVVYF NAIL, 6 OR MORE 08/21/2021 49245-PAUTHPV NAIL, 6 OR MORE 11/10/2021 54247-AQFHTDT NAIL, 6 OR MORE 01/19/2022 35686-RIMYHZO NAIL, 6 OR MORE 03/30/2022 71405-UWHEMSL NAIL, 6 OR MORE 08/27/2022 98782-NKPWCKN NAIL, 6 OR MORE 11/26/2022 75365-IKFZSKM NAIL, 6 OR MORE 02/15/2023 82776-PNSCQFK NAIL, 6 OR MORE 04/29/2023 88079-SLQVEZB NAIL, 6 OR MORE 07/12/2023 32150-LCAMQGZ NAIL, 6 OR MORE 12/20/2023 44703-IZNHEIB NAIL, 6 OR MORE 07/10/2024 36475-NVOVZFR NAIL, 6 OR MORE 10/12/2024 65055-KCDP SKIN LESIONS, OVER 4 10/13/19 25 93372-DQUT SKIN LESIONS, OVER 4 07/10/19 25 45482-AJGB SKIN LESIONS, OVER 4 12/20/19 24 61464-MBVQ SKIN LESIONS, OVER 4 07/12/19 24 16661-KIKJ SKIN LESIONS, OVER 4 04/29/20 23 85361-FZXC SKIN LESIONS, OVER 4 02/16/20 23 02810-RSSS SKIN LESIONS, OVER 4 11/27/19 23 51465-PPDH SKIN LESIONS, OVER 4 08/28/19 23 71406-FTYH SKIN LESIONS, OVER 4 03/30/20 22 17905-ZSNC SKIN LESIONS, OVER 4 01/20/20 22 56708-MTWY SKIN LESIONS, OVER 4 11/11/19 22 34355-AFYA SKIN LESIONS, OVER 4 08/22/19 22 36788-ODPN SKIN LESIONS, OVER 4 02/21/20 21 86171-PQIX SKIN LESIONS, OVER 4 06/12/19 Next Appt Details Provider Name:Trevor Daniels , 01/18/2025 10:30:00 AM, [address] [place] [address], [phone], Insurance Providers Payer Name Payer Address Payer Phone Subscriber Number Group Number Insured Name Patient Relationship to Insured Coverage Start Date Coverage End Date [facility] [place] [employer] S[employer] Claims [address] [place] [address] [id number] Octavio Elder Self - patient is the insured Medical (General) History Medical History History ICD Code Angina Anxiety Back,Hip,and Knee pain Cataracts Epilepsy Heart disease High blood pressure Kidney disease Numbness Poor circulation Psoriasis/eczema type II diabetes Surgical History Surgery Date(Month/Year) Eye Surgery - Glaucoma 08/09/2022
[2025-01-11 13:08] LABS: Alanine Aminotransferase 26 U/L (0-40); Albumin Level 4.1 g/dL (3.5-5.0); Alkaline Phosphatase 76 U/L (39-117); Anion Gap 11 (12-20); Aspartate Amino Transferase 26 U/L (5-37); Blood Urea Nitrogen 8 mg/dL (9-16); Calcium 8.6 mg/dL (8.4-10.2); Carbon Dioxide 27 mmol/L (22-29); Chloride 105 mmol/L (96-108); Cholesterol 129 mg/dL (<200); Estimated Glomerular Filt Rate > 60; HDL Cholesterol 32 mg/dL (>40); Potassium 3.8 mmol/L (3.3-5.1); Sodium 139 mmol/L (135-145); Total Protein 7.0 g/dL (6.5-8.0); Triglycerides 217 mg/dL (<150)
[2025-01-11 13:15] LABS: Hemoglobin A1C 203.4249 umol/L; Total Hemoglobin (HGBA1C) 3454.4002 umol/L
== END 2025-01-11 10:49 | disposition home or self-care (01) ==
LOC: HO.10HDL 10:48
PROVIDERS: Visit Provider Physician Assistant
DX: I10 Essential (primary) hypertension (principal); E78.5 Hyperlipidemia, unspecified; E66.9 Obesity, unspecified; E11.21 Type 2 diabetes mellitus with diabetic nephropathy
CPT/HCPCS: 36415; 80048; 80061; 80076; 83036

== ENCOUNTER 2025-02-06 10:51 | Outpatient (AMB) | payer OTHER, SELFPAY ==
--- OUTSIDE RECORDS SUMMARY | 2024-05-04 09:45 | XMS_ITS ---
Author Organization [facility] Address [address] [place] [address] Care Team Providers Care Signal And Communications Maintainer Name Role Phone Severiano POSADAS, Justen Primary Care Provider UnavailTrevor Phan Unavailable [phone] Encounters Encounter Location Date Provider Diagnosis [address] [address] 05/04/2024 Trevor Daniels Plan Of Treatment Next Appt Details Provider Name:Trevor Daniels , 05/07/2025 11:15:00 AM, [address] [place], [address], Progress Notes * Octavio RICCIDOB: [birth year] (64 yo M)Acc No.[id number]:05/04/2024 Progress Note Patient: Keo BENTLEYOctavio Provider: Eze Daniels DPM :1960 A ge:63 Y S ex:Male Date:05/04/2024 Address:[address] [place], [place] [phone] Pcp:Justen العلي MD Subjective: * Chief Complaints: [...] 07/05/2023 Generated for Taty juarez/Lisa/Deniitting on: 0 02/06/2025 01:56 PM EDT
--- OUTSIDE RECORDS SUMMARY | 2024-06-15 09:45 | XMS_ITS ---
Author Organization [facility] Address [address] [place] [address] Care Team Providers Care Transformation Consultant Name Role Phone Severiano POSADAS, Justen Primary Care Provider UnavailTrevor Phan Unavailable [phone] REASON FOR VISIT Seen Sooner Encounters Encounter Location Date Provider Diagnosis [facility] [address] [place] [address] 06/15/2024 Trevor Daniels Plan Of Treatment Next Appt Details Provider Name:Trevor Daniels , 05/07/2025 11:15:00 AM, [address] [place], [address], Progress Notes * Octavio RICCIDOB: [birth year] (64 yo M)Acc No.[id number]:06/15/2024 Progress Note Patient: Keo BENTLEYOctavio Provider: Eze Daniels DPM :1960 A ge:63 Y S ex:Male Date:06/15/2024 Address:[address] [place], [place] [phone] Pcp:Justen العلي MD Subjective: * Chief Complaints: [...] 06/15/2024 Generated for Taty juarez/Lisa/Fernandez on: 0 02/06/2025 01:56 PM EDT
--- NOTE | 2025-02-06 10:52 | MHC.PC.OV ---
Vital Signs 02/06/25 11:22 Height 5 ft 9 in Weight 98.883 kg BMI 32.2 BP 122/84 Blood Pressure Location Lt brachial Position Sitting Respiration 16 Pulse 85 Pulse Source Pulse Oximeter Temp 97.1 F Temp Source Temporal Artery Scan Pulse Oximetry (%) 96 Oxygen Delivery Method Room Air Intake Visit Reasons: 1 month f/u Bindery Machine Setter Required: No Accompanied by: Self / Same As Patient Allergies morphine (MORPHINE) Allergy (Severe, Verified 02/06/25 10:52) PT STATES FLAT-LINED -WAS IN W/CP Medication List - Last Reconciled 02/06/25 by Minoo Joshi LPN acetaminophen (Tylenol Extra Strength) 1,000 mg (2 x 500 mg) PO QID PRN albuterol sulfate 90 mcg/actuation (Ventolin HFA) 2 puffs inhalation Q6H PRN amitriptyline 25 mg PO BEDTIME aspirin (Adult Low Dose Aspirin) 81 mg PO DAILY 90 days blood sugar diagnostic (FreeStyle Lite Strips) 4 times a day blood-glucose meter (FreeStyle Lite Meter kit) 4 times a day blood-glucose meter (FreeStyle [place] Lite kit) As directed bupropion HCl XL (Wellbutrin XL) 150 mg PO QAM calcium carbonate-vitamin D3 500 mg-15 mcg (600 unit) 1 tab PO DAILY certolizumab pegol (Cimzia) 400 mg subcut Q2W certolizumab pegol (Cimzia Starter Kit) mg subcut cholecalciferol (vitamin D3) 50 mcg PO DAILY diabetic supplies, miscellan. diabetic shoes use daily as directed. 1 pair empagliflozin (Jardiance) 25 mg PO QAM ezetimibe 10 mg PO DAILY foot care products Diabetic shoes use daily As directed glucagon 3 mg/actuation 3 mg intranasal ONCE PRN insulin degludec (Tresiba FlexTouch U-200 insulin) 60 units (0.3 mL) subcut BEDTIME lancets (FreeStyle Lancets) 4 times a day leflunomide 20 mg PO DAILY lisinopril 5 mg PO DAILY loperamide (Anti-Diarrheal (loperamide)) 2 mg PO Q6H PRN meloxicam 15 mg PO DAILY metoprolol succinate ER 100 mg PO DAILY mupirocin 2% 1 appl topical BID-TID omega-3 acid ethyl esters 1 cap PO BID omeprazole 20 mg PO DAILY 90 days ondansetron HCl (Zofran) 4 mg PO Q8H PRN pen needle, diabetic 1 ea miscellaneous .5 times a day 30 days pregabalin mg PO primidone 250 mg PO BID rosuvastatin 40 mg PO DAILY semaglutide (Ozempic) 2 mg (0.75 mL) subcut QWEEK sertraline 50 mg PO DAILY trazodone 25 - 50 mg (0.5 - 1 x 50 mg) PO BEDTIME PRN warfarin 5 mg PO Tobacco use date assessed: 01/09/25 Dental Screening Dental Screen Date: 01/09/25 HPI HPI Comments History of Present Illness Details 64-year-old male with remote history of DVT/PE, 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 He was seen in the office 1 month ago for routine follow-up and had been noted to have lost 3 kg over several months. He is return today for a weight recheck. Since his last visit, he has lost another 2 kg. In the last 6 months, has lost over 9 kg, about 19.5 lb unintentionally. He reports he has been eating, does follow a healthy diet. Consumes chicken, red meat, occasional seafood. He consumes fruit, vegetables. Occasional fast food as well as sweets. He does endorse eating small meals however due to anorexia. He does report occasional nocturnal sweats and facial flushing but denies any drenching sweats. He also endorses occasional axillary swelling and occasional positional lightheadedness. He also endorses weak urinary stream that improves with increased hydration He does deny any fevers, chills, sore throat, dysphagia, odynophagia, reflux, nausea, vomiting, abdominal pain, change in bowel habits-does endorse chronic diarrhea managed with Imodium, melena, hematochezia, dysuria, hematuria, urinary retention, rectal pain. Headaches, vision changes, weakness/paresthesias. No cough, shortness of breath, wheezing, chest pains. No syncope. -history of cigarette smoking, quit 33 years ago -last screening colonoscopy 01/2018 with 5 year follow-up advised- Dr. Goncavles -due for PSA -no history of Parkinson's or cognitive impairment FH: Lung cancer in father Ovarian cancer in mother Chronic conditions: DVT/PE-right lower extremity about 15 years ago. Previously following with Dr. Collins at [facility]. Currently on coumadin Type 2 diabetes-complicated by polyneuropathy and nephropathy. Last hemoglobin A1c 7.2%. Following with endocrinology. Currently on Tresiba 60 units at bedtime and Ozempic 2 mg weekly. No longer using prandial insulin. No longer using CGM Essential tremor/seizures-worsening. Tremor in voice as well. Now requiring the use of bubble packs. On primidone and Lyrica. Neuro at [facility]. No history of Parkinson's disease or cognitive impairment Hypercholesterolemia-on Zetia and rosuvastatin Hypertension-on metoprolol, lisinopril-controlled Basal cell carcinoma-newly diagnosed. On left nose, back, chest. Following with [facility] dermatology for Mohs procedure Depression/anxiety-Wellbutrin 150 mg added at last visit. Continues on sertraline as well as trazodone. Improved symptoms, however appetite has not improved ROS: See HPI EXAM: Constitutional - Awake and Alert, No apparent distress Eyes - PERRL Cardiovascular - S1S2, RRR, No edema Neck - no adenopathy Respiratory - Normal lung expansion, Normal respiratory effort, No respiratory distress, CTA bilaterally ADB- nontender to palpation, soft, nondistended, no palpable masses. Bowel sounds time 4 Rectal- sphincter tone appropriate-no stool in the rectal vault. Unable to check for occult blood. 3+ prostate enlargement with ttp. 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 Extremities - no calf tenderness bilaterally, no swelling Skin - Warm/Dry Neurological - Alert & oriented x3, CN II-XII intact Psychological - Appropriate affect [facility] Medical History (Updated 02/06/25 @ 13:52 by MARIELOS Forrest) Unintentional weight loss Major depressive disorder Vitamin D deficiency HTN (hypertension) HLD (hyperlipidemia) T2DM (type 2 diabetes mellitus) Diabetes type 2, uncontrolled Obesity (BMI 30-39.9) Dyslipidemia Diabetic nephropathy associated with type 2 diabetes mellitus Diabetic neuropathy associated with type 2 diabetes mellitus 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 Surgical History History of colonoscopy (~09/05/18) History of open reduction and internal fixation (ORIF) procedure History of ear surgery History of carpal tunnel surgery of left wrist History of intraocular lens implant Hx of vasectomy Hx of appendectomy Hx of hernia repair Hx of arthroscopy of knee History of left nephrectomy Family History (Updated 02/06/25 @ 11:28 by MARIELOS Forrest) Father Lung cancer Mother FH: ovarian cancer in first degree relative Diabetes Social History Housing: House (Lives with daughter) Alcohol intake: former Patient Tobacco Use Status: Former Tobacco user (Quite in 1989) Years Smoked: quit at 31 years old e-Cigarette/Vaping Use: Never Used Substance Use Type: Marijuana service: No Current occupational status: retired and disabled Cognitive needs: Yes (Cane and walker PRN long distances) Vision needs: Yes (Reading glasses) Questionnaire Thrive Questionnaire Date Thrive assessed: 01/09/25 MALATHI-7 AMB Questionnaire MALATHI-7 Date MALATHI - 7 assessed: 01/09/25 Source: Developed by Drs. Clark Elizondo, Sigrid Joshi, Cristiano Pisano and colleagues, with an educational julisa from [employer]. Physical exam (Primary Care) Vital Signs: Last Vital Signs Temp 97.1 F 02/06/25 11:22 Pulse 85 02/06/25 11:22 Resp 16 02/06/25 11:22 BP 122/84 02/06/25 11:22 Pulse Ox 96 02/06/25 11:22 Oxygen Delivery Method Room Air 02/06/25 11:22 BMI result Body Mass Index 32.2 Tobacco/Smoking Status: Tobacco use Status Tobacco use date assessed 01/09/25 02/06/25 10:54 Patient Tobacco Use Status Former Tobacco user (Quite 02/06/25 10:54 in 1989) e-Cigarette/Vaping Use Never Used 02/06/25 10:54 Thrive Assessment: Date of Thrive Assessment Date Thrive assessed 01/09/25 02/06/25 10:54 Coding Level of Care Code Est Pt Level 5 (15578) Diagnoses Unintentional weight loss R63.4 Major depressive disorder F32.9 Hypertension, unspecified type I10 Hypertension type: unspecified Diabetic polyneuropathy associated with type 2 diabetes mellitus E11.42 Diabetes mellitus complication detail: diabetic polyneuropathy Assessment & Plan Assessment & Plan (1) Unintentional weight loss: Code(s): R63.4 - Abnormal weight loss Category: Medical Plan: Patient with difficult weight loss of 20 lb over the last 6 months. Concerning for etiology such as malignancy, though we will rule out alternative etiologies as well. Depression is much improved, so less likely the cause of weight loss. We will check labs as ordered below. Referred for stat gastroenterology appointment given known colon polyp with unintentional weight loss and he is overdue for colonoscopy. Also referred for stat CT of the abdomen/pelvis and chest. Brain MRI also ordered to assess for any structural abnormalities including masses or other neurologic abnormalities that could be contributing to his weight loss. Recommend monitoring weights at home. (2) Major depressive disorder: Code(s): F32.9 - Major depressive disorder, single episode, unspecified Category: Medical Plan: Improved. Continue current therapies (3) HTN (hypertension): Code(s): I10 - Essential (primary) hypertension Category: Medical Qualifiers: Hypertension type: unspecified Qualified Code(s): I10 - Essential (primary) hypertension Plan: Continue current therapies (4) Diabetic neuropathy associated with type 2 diabetes mellitus: Code(s): E11.40 - Type 2 diabetes mellitus with diabetic neuropathy, unspecified Category: Medical Qualifiers: Diabetes mellitus complication detail: diabetic polyneuropathy Qualified Code(s): E11.42 - Type 2 diabetes mellitus with diabetic polyneuropathy Plan: Hemoglobin A1c improved. Follow-up with endocrinology as scheduled. Continue Tresiba as well as Ozempic and Jardiance. Annual exams. Weight loss efforts discussed Plan Follow-up in 3 months, sooner if needed Orders: Orders Basic Metabolic Panel Today R63.0 - Anorexia, R63.4 - Abnormal weight loss Complete Blood Count Auto Diff Today R63.0 - Anorexia, R63.4 - Abnormal weight loss IRON PROFILE Today R63.0 - Anorexia, R63.4 - Abnormal weight loss Erythrocyte Sedimentation Rate Today R63.0 - Anorexia, R63.4 - Abnormal weight loss HIV Ab/Ag Today R63.0 - Anorexia, R63.4 - Abnormal weight loss CT abdomen pelvis wo IV con Today R63.0 - Anorexia, R63.4 - Abnormal weight loss MR head/brain wo con Today R63.0 - Anorexia, R63.4 - Abnormal weight loss UA CC w/rflx Micro + Cult Today R63.0 - Anorexia, R63.4 - Abnormal weight loss Liver Panel Today R63.0 - Anorexia, R63.4 - Abnormal weight loss Prostate Specific Antigen Today R63.0 - Anorexia, R63.4 - Abnormal weight loss TSH reflex Free T4 Today R63.0 - Anorexia, R63.4 - Abnormal weight loss C Reactive Protein Today R63.0 - Anorexia, R63.4 - Abnormal weight loss Hepatitis B,C Profile Today R63.0 - Anorexia, R63.4 - Abnormal weight loss CT chest wo IV con Today R63.0 - Anorexia, R63.4 - Abnormal weight loss Referrals Gastroenterology Referral R63.0 - Anorexia, R63.4 - Abnormal weight loss Gastroenterology Referral K63.5 - Polyp of colon, R63.0 - Anorexia, R63.4 - Abnormal weight loss
[2025-02-06 11:22] VITALS: BP 122/84; PULSE 85; RESP 16; TEMP 36.2; O2SAT 96; BMI 32.2
--- OUTSIDE RECORDS SUMMARY | 2025-02-06 13:56 | XMS_ITS | Patient Health Record ---
Author Organization [facility] Address [address] [place] [address] Care Team Providers Care Auto Servicer Name Role Phone Justen العلي MD Primary Care Provider Unavailab Trevor Amador Unavailable [phone] Allergies Allergen (clinical drug ingredient) Drug/Non Drug [...] Duration) Notes Start Date End Date Status Lantus Not-Taking Triamcinolone Acetonide 0.1 % as directed Externally Twice a day Not-Taking Nitroglycerin 0.4 MG Sublingual; Duration: 25 PRN Active Metoprolol Succinate ER 100 MG 1 tablet Orally Once a day; Duration: 30 day(s) Active Omeprazole 20 MG 1 capsule 30 minutes before morning meal Orally Once a day; Duration: 30 day(s) Active NovoLOG Active Leflunomide 20 MG 1 tablet Orally Once a day; Duration: 30 day(s) Active immodium 1 tab Oral; Duration: 14 days Active Lyrica 50 MG 1 capsule Orally Twice a day Active Lisinopril 5 MG 1 tablet Orally Once a day; Duration: 30 day(s) Active Rosuvastatin Calcium 40 MG 1 tablet Orally Once a day; Duration: 30 day(s) Active Primidone 250 MG 1 tablet Orally Twice a day; Duration: 30 day(s) Active Sertraline HCl 100 MG 1 tablet Orally Once a day; Duration: 30 day(s) Active Ammonium Lactate 12 % 1 application to affected area Externally to feet Twice a day; Duration: 30 days Active Ozempic Active Hydrocortisone 2.5 % 1 application Externally Twice a day; Duration: 30 days Active Amitriptyline HCl 25 MG 1 tablet at bedtime Orally Once a day; Duration: 30 day(s) Active Meloxicam 7.5 MG 1 tablet Orally Once a day; Duration: 30 day(s) Not-Taking Advair HFA 230-21 MCG/ACT 2 puffs Inhalation Twice a day Active Fosamax 70 MG 1 tablet 30 minutes before the first food, beverage or medicine of the day with plain water Orally; Duration: 30 day(s) Not-Taking Ventolin HFA Active Tresiba Active Zofran 4 MG 1 tablet Orally PRN 02/18/2021 Active Warfarin Sodium Acti ve Extra Depth Orthopedic Shoes (1 Pair) with Customized Heat Molded Multidensity Innersoles (3 Pair) as directed Dx: NIDDM/Polyneuropath y (E11.42), Hammertoe Foot Deformity (M20.41,M20.42), Preulcerative Skin Lesion(s) (L85.1 Active Calcium + D Active Aspirin 81 MG 1 tablet Orally Once a day; Duration: 30 day(s) Active Remicade 1100 mg infusion monthly Not-Taking Ezetimibe 10 MG 1 tablet Orally Once a day; Duration: 30 day(s) Active Immunizations Vaccine Route Administration Date Status Comme nts Influenza Unknown 03/03/2021 Administered Influenza Unknown 02/12/2022 Administered Influenza Unknown 02/15/2024 Administered COVID-19 Moderna Vaccine Unknown 04/03/2021 Administered [...] Problem Acquired hammer toe of right foot ([id number] ) Other hammer toe(s) (acquired), right foot (M20.41) Active confirmed Response to treatment, Improvemen t Problem Acquired hammer toe of left foot (0932208978955255 ) Other hammer toe(s) (acquired), left foot (M20.42) Active confirmed Response to treatment, Improvemen t Problem Polyneuropathy due to type 2 diabetes mellitus (879393329) Type 2 diabetes mellitus with diabetic polyneuropathy (E11.42) Active confirmed Vital Signs Blood pressure diastolic 65 mm Hg 01/18/2025 Height 5ft 9in in 01/18/2025 Blood pressure systolic 126 mm Hg 01/18/2025 Weight 217 lbs 01/18/2025 BMI 32.04 kg/m2 01/18/2025 Procedures Procedure Date Ordered Date Performed Result Body Sit e 25396-KOOLVXH NAIL, 6 OR MORE 07/10/2024 N/A 55016-MMYJ SKIN LESIONS, OVER 4 07/10/2024 N/A 69190-AFNSFAX NAIL, 6 OR MORE 10/12/2024 N/A 79617-HPOZ SKIN LESIONS, OVER 4 10/12/2024 N/A 27509-YGSLNRP NAIL, 6 OR MORE 01/18/2025 N/A 19217-WRYV SKIN LESIONS, OVER 4 01/18/2025 N/A Encounters Encounter Location Date Provider Diagnosis [address] [address] 07/10/2024 Trevor Frances Type 2 diabetes mellitus with diabetic polyneuropathy E11.42 ; Tinea unguium B35.1 ; Other hammer toe(s) (acquired), right foot M20.41 and Other hammer toe(s) (acquired), left foot M20.[address] [address] 10/12/2024 Trevorvalerio Daniels Type 2 diabetes mellitus with diabetic polyneuropathy E11.42 and Tinea unguium B35.[address] [address] 01/18/2025 Trevro Daniels Type 2 diabetes mellitus with diabetic polyneuropathy E11.42 ; Tinea unguium B35.1 ; Other hammer toe(s) (acquired), right foot M20.41 and Other hammer toe(s) (acquired), left foot M20.[address] [facility] [address] 03/20/2024 Trevor Daniels [facility] [address] [address] 05/04/2024 Trevor Daniels Assessments Encounter Date Diagnosis (ICD Code) Assessment Notes Treatment Notes Treatment Clinical Notes Section Notes 07/10/2024 Type 2 diabetes mellitus with diabetic polyneuropathy (ICD-10 - E11.42) 07/10/2024 Tinea unguium (ICD-10 - B35.1) 10/12/2024 Type 2 diabetes mellitus with diabetic polyneuropathy (ICD-10 - E11.42) 10/12/2024 Tinea unguium (ICD-10 - B35.1) 01/18/2025 Type 2 diabetes mellitus with diabetic polyneuropathy (ICD-10 - E11.42) 01/18/2025 Tinea unguium (ICD-10 - B35.1) 01/18/2025 Other hammer toe(s) (acquired), right foot (ICD-10 - M20.41) Patient Educated with: DIABETIC FOOT CARE INSTRUCTIONS. pdf (DIABETIC FOOT CARE INSTRUCTIONS. pdf) 07/10/2024 Other hammer toe(s) (acquired), right foot (ICD-10 - M20.41) Response to treatment,Impro vement 07/10/2024 Other hammer toe(s) (acquired), left foot (ICD-10 - M20.42) Response to treatment,Impro vement 01/18/2025 Other hammer toe(s) (acquired), left foot (ICD-10 - M20.42) Plan Of Treatment Pending Test Test Name Order Date 84810-MZLJIWO NAIL, 6 OR MORE 02/20/2021 41844-RNBHRLW NAIL, 6 OR MORE 06/12/2021 04096-MFXZBYT NAIL, 6 OR MORE 08/21/2021 40988-EJALMBB NAIL, 6 OR MORE 11/10/2021 17787-VAGXBOO NAIL, 6 OR MORE 01/19/2022 72904-KPYSAOM NAIL, 6 OR MORE 03/30/2022 39865-NBDVYLS NAIL, 6 OR MORE 08/27/2022 09621-QJXILDB NAIL, 6 OR MORE 11/26/2022 25137-WMTTUTZ NAIL, 6 OR MORE 02/15/2023 37193-TDNBROI NAIL, 6 OR MORE 04/29/2023 37757-XCNXDQA NAIL, 6 OR MORE 07/12/2023 32857-KOHHKER NAIL, 6 OR MORE 12/20/2023 32099-YYYYPRF NAIL, 6 OR MORE 07/10/2024 06811-UISOFVG NAIL, 6 OR MORE 10/12/2024 25056-YIFEXVI NAIL, 6 OR MORE 01/18/2025 15132-CPTF SKIN LESIONS, OVER 4 01/19/20 59247-PVUP SKIN LESIONS, OVER 4 10/13/19 25 90791-QXQY SKIN LESIONS, OVER 4 07/10/19 25 10170-JJTC SKIN LESIONS, OVER 4 12/20/19 24 10692-OKOS SKIN LESIONS, OVER 4 07/12/19 24 44771-FEYD SKIN LESIONS, OVER 4 04/29/20 23 93172-MTQR SKIN LESIONS, OVER 4 02/16/20 23 42124-ELPI SKIN LESIONS, OVER 4 11/27/19 23 51858-PLIZ SKIN LESIONS, OVER 4 08/28/19 23 95075-KXYA SKIN LESIONS, OVER 4 03/30/20 22 67768-GNJP SKIN LESIONS, OVER 4 01/20/20 22 12111-QBYN SKIN LESIONS, OVER 4 11/11/19 22 12056-VXNQ SKIN LESIONS, OVER 4 08/22/19 22 75133-UPZQ SKIN LESIONS, OVER 4 02/21/20 21 56383-JLQP SKIN LESIONS, OVER 4 06/12/19 22 Next Appt Details Provider Name:Trevor Daniels , 05/07/2025 11:15:00 AM, [address] [facility], [place], [address], Insurance Providers Payer Name Payer Address Payer Phone Subscriber Number Group Number Insured Name Patient Relationship to Insured Coverage Start Date Coverage End Date [facility] SCO Claims [address] [place]IEL[place] Barbosa [address] [phone] [id number] Octavio Elder Self - patient is the insured Medical (General) History Medical History History ICD Code Angina Anxiety Back,Hip,and Knee pain Cataracts Epilepsy Heart disease High blood pressure Kidney disease Numbness Poor circulation Psoriasis/eczema type II diabetes Surgical History Surgery Date(Month/Year) Eye Surgery - Glaucoma 08/09/2022
--- OUTSIDE RECORDS SUMMARY | 2025-02-06 13:56 | XMS_ITS | Clinical Summary ---
Author Organization [facility] Facility Address [address] [place] [address] Care Team Providers Care Brick Machine Operator Name Role Phone Justen العلي MD Primary Care Provider [phone] Allergies Active Allergy Reactions Criticality Noted Date [...] patient's age to complete this topic Insurance [facility] ([id number]) [place] [facility] ([id number]) [place] Care Teams Brick Machine Operator Relationship Specialty Start Date End Date Justen العلي MD [address] [place] [address] [place] [address] PCP - General Internal Medicine 09/16/21
--- OUTSIDE RECORDS SUMMARY | 2025-02-06 13:56 | XMS_ITS | Patient Health Record ---
Author Organization [facility] Address [address] [place] [address] Care Team Providers Care Stock Handler Name Role Phone Severiano (RETIRED) Justen POSADAS Primary Care Provider Unavailable Clark Goncalves Unavailable [phone] Reason For Referral No Information Medications Medication [...] Problem Status W/U Status Risk Notes Problem [id number] Encounter for screening for malignant neoplasm of colon (Z12.11) Active confirmed Problem 193093064 History of adenomatous polyp of colon (Z86.010) Active confirmed Problem 510523224 Gastroesophageal reflux disease without esophagitis (K21.9) Active confirmed Problem 736176493 Barretts esophag us without dysplasia (K22.70) Active confirmed Problem 24299681 Diarrhea, unspecified type (R19.7) Active confirmed Plan [...] Start Date Coverage End Date MEDICARE OF [facility] [address] [place] [address] [id number] GARY RICCI Self - patient is the insured Medical (General) History Medical History History ICD Code Blood clots in RLE removed by Dr. Arzola at [facility] 12/[address] in 2000 with stents-no problems s sofia [...]
--- OUTSIDE RECORDS SUMMARY | 2025-02-06 13:56 | XMS_ITS | Clinical Summary ---
Author Organization [facility] Address [address] [place] [address] Phone Care Team Providers Care Publications Writer Name Role Phone Justen العلي MD Primary [...] a day. 120 tablet 11 5 Active Encounters Date Type Department Care Team Description 12/28/2024 Telephone [facility] Neurology [address] [place] [address] [place] [address] Jesse العلي MD Medication Problem 12/17/2024 11:30 AM EDT Office Visit [facility] Neurology [address] [place] [address] [place] [address] Jesse العلي MD Essential tremor (Primary Dx) [...] Description 06/20/2025 11:00 AM EST Office Visit [facility] Neurology [address] [place] [address] Jesse العلي MD [address] [facility], 2nd [place] [address] [email or web address] Health Maintenance Due Date Last Done Comments [...] - Risk 60-74 years 1-dose series) 2018 INFLUENZA VACCINE (#1) 2024 COVID-19 VACCINE (1 - 2023-2 5 season) 2025 HEPATITIS A VACCINES Aged Out No long [...] topic Medical Devices Not on file Insurance [facility] ONE CARE MEDICARE [place] [address] [address] [place] [address] [address] [place] [address] [address] [address] MEDICARE REPLACEMENT [facility] ONE CARE MEDICARE REPLACEMENT [facility] MEDICARE REPLACEMENT Care Teams Publications Writer Relationship Specialty Start Date End Date Justen العلي MD [address] [place] [address] [place] [address] PCP - General Internal Medicine 01/17/24 Additional Source Comments The information contained in this document represents components of the legal health record. It is not the complete legal health record.[facility]
== END 2025-02-06 13:00 | disposition home or self-care (01) ==
LOC: HO.HMCHD 10:51
PROVIDERS: PCP Physician Assistant; Visit Provider Physician Assistant
DX: R63.4 Abnormal weight loss (principal); F32.9 Major depressive disorder, single episode, unspecified; E11.42 Type 2 diabetes mellitus with diabetic polyneuropathy; I10 Essential (primary) hypertension

== ENCOUNTER → 2025-02-06 10:51 | Outpatient (BNVA) | payer OTHER, SELFPAY | PROVIDERS: PCP Family Medicine; Visit Provider Physician Assistant | DX: R63.4 Abnormal weight loss (principal); F32.9 Major depressive disorder, single episode, unspecified; I10 Essential (primary) hypertension; E11.42 Type 2 diabetes mellitus with diabetic polyneuropathy; E11.21 Type 2 diabetes mellitus with diabetic nephropathy; G47.33 Obstructive sleep apnea (adult) (pediatric); Z86.711 Personal history of pulmonary embolism; Z86.718 Personal history of other venous thrombosis and embolism; Z79.01 Long term (current) use of anticoagulants; Z79.4 Long term (current) use of insulin; Z79.899 Other long term (current) drug therapy | CPT/HCPCS: 99212 ==

== ENCOUNTER 2025-02-07 12:06 | Outpatient (REF) | payer OTHER, SELFPAY ==
--- OUTSIDE RECORDS SUMMARY | 2024-05-04 09:45 | XMS_ITS ---
Author Organization [facility] Address [address] [place] [address] Care Team Providers Care Physical Therapy Aid Name Role Phone Severiano POSADAS, Justen Primary Care Provider UnavailTrevor Phan Unavailable [phone] Encounters Encounter Location Date Provider Diagnosis [address] [address] 05/04/2024 Trevor Daniels Plan Of Treatment Next Appt Details Provider Name:Trevor Daniels , 05/07/2025 11:15:00 AM, [address] [place], [address], Progress Notes * Octavio RICCIDOB: [birth year] (64 yo M)Acc No.[id number]:05/04/2024 Progress Note Patient: Keo BENTLEYOctavio Provider: Eze Daniels DPM :1960 A ge:63 Y S ex:Male Date:05/04/2024 Address:[address] [place], [place] [id number] Pcp:Justen العلي MD Subjective: * Chief Complaints: [...] Daniels DPM Date: 07/05/2023 Generated for Taty juarez/Lisa/Deniitting on: 0 02/07/2025 05:04 PM EDT
--- OUTSIDE RECORDS SUMMARY | 2024-06-15 09:45 | XMS_ITS ---
Author Organization [facility] Address [address] [place] [address] Care Team Providers Care Pastrycook'S Assistant Name Role Phone Severiaon POSADAS, Justen Primary Care Provider UnavailTrevor Phan Unavailable [phone] REASON FOR VISIT Seen Sooner Encounters Encounter Location Date Provider Diagnosis [facility] [address] [place] [address] 06/15/2024 Trevor Daniels Plan Of Treatment Next Appt Details Provider Name:Trevor Daniels , 05/07/2025 11:15:00 AM, [address] [place], [address], Progress Notes * Octavio RICCIDOB: [birth year] (64 yo M)Acc No.[id number]:06/15/2024 Progress Note Patient: Keo BENTLEYOctavio Provider: Eze Daniels DPM :1960 A ge:63 Y S ex:Male Date:06/15/2024 Address:[address] [place], [place] [phone] Pcp:Justen العلي MD Subjective: * Chief Complaints: [...] 06/15/2024 Generated for Taty juarez/Lisa/Fernandez on: 0 02/07/2025 05:05 PM EDT
[2025-02-07 12:33] LABS: MANUAL DIFF FLAG NO
[2025-02-07 12:36] LABS: Hematocrit 43.1 % (42.0-52.0); Hemoglobin 13.6 g/dl (14.0-18.0); Imm Gran Abs Auto 0.04 X10*3/uL (0.00-0.03); Imm Gran Pct Auto 0.4 % (0.0-0.4); Lymphocytes Absolute Auto 2.2 X10*3/uL (1.2-4.9); Mean Corpuscular HGB Conc 31.6 g/dl (31.0-36.0); Mean Corpuscular Hemoglobin 26.4 pg (27.0-33.0); Mean Corpuscular Volume 83.7 fL (80.0-98.0); NRBC Abs Auto 0.000 X10*3/uL (0.0-0.012); NRBC Pct Auto 0.0 /100WBC (0.0-0.2); Platelet Count 279 X10*3/uL (160-400); Red Blood Count 5.15 X10*6/uL (4.60-5.80); White Blood Count 9.5 X10*3/uL (4.8-10.8)
[2025-02-07 13:08] LABS: Alanine Aminotransferase 17 U/L (0-40); Albumin Level 4.4 g/dL (3.5-5.0); Alkaline Phosphatase 92 U/L (39-117); Anion Gap 11 (12-20); Aspartate Amino Transferase 24 U/L (5-37); Blood Urea Nitrogen 13 mg/dL (9-16); Calcium 8.9 mg/dL (8.4-10.2); Carbon Dioxide 26 mmol/L (22-29); Chloride 106 mmol/L (96-108); Estimated Glomerular Filt Rate > 60; Iron 54 mcg/dL (45-160); Percent Iron Saturation 18 % (15-50); Potassium 4.7 mmol/L (3.3-5.1); Sodium 138 mmol/L (135-145); Total Iron Binding Capacity 306 mcg/dL (228-428); Total Protein 7.8 g/dL (6.5-8.0); Unsaturated Iron Binding 252 ug/dL
[2025-02-07 13:18] LABS: Appearance Urine Clear; Glucose Urine UA >=1000 mg/dL (Negative); PH 6.0 (5.0-9.0); Specific Gravity - Urine >= 1.030 (1.005-1.025); UMIC TRIGGER UACC YES
[2025-02-07 13:27] LABS: Prostate Specific Antigen 0.74 ng/mL (<0.05-4.0)
--- OUTSIDE RECORDS SUMMARY | 2025-02-07 17:04 | XMS_ITS | Clinical Summary ---
Author Organization [facility] Address [address] [place] [address] Phone Care Team Providers Care Turbine Subassembler Name Role Phone Justen العلي MD Primary [...] Type Department Care Team Description 12/28/2024 Telephone [facility] Neurology [address] [place] [address] [place] [address] Jesse العلي MD Medication Problem 12/17/2024 11:30 AM EDT Office Visit [facility] Neurology [address] [place] [address] [place] [address] Jesse العلي MD Essential tremor (Primary Dx) [...] 06/20/2025 11:00 AM EST Office Visit [facility] Neurology [address] [place] [address] Jesse العلي MD [address] [facility], 2nd [place] [address] [email or web address] Health Maintenance Due Date Last Done Comments [...] topic Medical Devices Not on file Insurance [facility] ONE CARE MEDICARE [place] [address] [address] [place] [address] [place] [address] [place] [address] MEDICARE REPLACEMENT [facility] ONE CARE MEDICARE REPLACEMENT [facility] MEDICARE REPLACEMENT Care Teams Turbine Subassembler Relationship Specialty Start Date End Date Justen العلي MD [address] [place] [address] [place] [address] PCP - General Internal Medicine 01/17/24 Additional Source Comments The information contained in this document represents components of the legal health record. It is not the complete legal health record.[facility]
--- OUTSIDE RECORDS SUMMARY | 2025-02-07 17:04 | XMS_ITS | Clinical Summary ---
Author Organization [facility] Facility Address [address] [place] [address] Care Team Providers Care Security Assessor Name Role Phone Justen العلي MD Primary Care Provider [phone] Allergies Active Allergy Reactions Criticality Noted Date [...] patient's age to complete this topic Insurance [facility] ([id number]) [place] [facility] ([id number]) [place] Care Teams Security Assessor Relationship Specialty Start Date End Date Justen العلي MD [address] [place] [address] [place] [address] PCP - General Internal Medicine 09/16/21
--- OUTSIDE RECORDS SUMMARY | 2025-02-07 17:05 | XMS_ITS | Patient Health Record ---
[facility] Address [address] [place] [address] Care Team Providers Care Shuttle Bus Driver Name Role Phone Justen العلي MD Primary Care Provider Unavailab Trevor Amador Unavailable [phone] Allergies Allergen (clinical drug ingredient) Drug/Non Drug [...] Problem Acquired hammer toe of right foot ([id number] ) Other hammer toe(s) (acquired), right foot (M20.41) Active confirmed Response to treatment, Improvemen t Problem Acquired hammer toe of left foot ([id number] ) Other hammer toe(s) (acquired), left foot (M20.42) Active confirmed Response to treatment, Improvemen t Problem Polyneuropathy due to type 2 diabetes mellitus (497949140) Type 2 diabetes mellitus with diabetic polyneuropathy (E11.42) Active confirmed Vital Signs Blood pressure diastolic 65 mm Hg 01/18/2025 Height 5ft 9in in 01/18/2025 Blood pressure systolic 126 mm Hg 01/18/2025 Weight 217 lbs 01/18/2025 BMI 32.04 kg/m2 01/18/2025 Procedures Procedure Date Ordered Date Performed Result Body Sit e 47716-ZMXUJCX NAIL, 6 OR MORE 07/10/2024 N/A 68333-CACN SKIN LESIONS, OVER 4 07/10/2024 N/A 29754-KBDLWHU NAIL, 6 OR MORE 10/12/2024 N/A 26493-WWUA SKIN LESIONS, OVER 4 10/12/2024 N/A 73384-VCHSUYC NAIL, 6 OR MORE 01/18/2025 N/A 86358-VQZF SKIN LESIONS, OVER 4 01/18/2025 N/A Encounters Encounter Location Date Provider Diagnosis [address] [address] 07/10/2024 Trevor Frances Type 2 diabetes mellitus with diabetic polyneuropathy E11.42 ; Tinea unguium B35.1 ; Other hammer toe(s) (acquired), right foot M20.41 and Other hammer toe(s) (acquired), left foot M20.[address] [address] 10/12/2024 Trevorvalerio Daniels Type 2 diabetes mellitus with diabetic polyneuropathy E11.42 and Tinea unguium B35.[address] [address] 01/18/2025 Trevor Daniels Type 2 diabetes mellitus with diabetic polyneuropathy E11.42 ; Tinea unguium B35.1 ; Other hammer toe(s) (acquired), right foot M20.41 and Other hammer toe(s) (acquired), left foot M20.[address] [facility] [address] 03/20/2024 Trevor Daniels [facility] [address] [address] 05/04/2024 Trevor Daniels Assessments Encounter Date Diagnosis [...] Treatment Pending Test Test Name Order Date 73452-ARNXBYX NAIL, 6 OR MORE 02/20/2021 93128-LSCFNHR NAIL, 6 OR MORE 06/12/2021 08931-HYMMUHF NAIL, 6 OR MORE 08/21/2021 07320-RVMBTGD NAIL, 6 OR MORE 11/10/2021 02499-YCVAKYM NAIL, 6 OR MORE 01/19/2022 47762-HEJQNIG NAIL, 6 OR MORE 03/30/2022 08910-VHPKYSO NAIL, 6 OR MORE 08/27/2022 27334-RGUTEKR NAIL, 6 OR MORE 11/26/2022 12238-FGSTCGH NAIL, 6 OR MORE 02/15/2023 82576-NIJEQZZ NAIL, 6 OR MORE 04/29/2023 94021-ZRYEGFS NAIL, 6 OR MORE 07/12/2023 51537-CAQLXUU NAIL, 6 OR MORE 12/20/2023 60100-WIMJALI NAIL, 6 OR MORE 07/10/2024 57423-LZRNOVZ NAIL, 6 OR MORE 10/12/2024 90507-EIVEVQM NAIL, 6 OR MORE 01/18/2025 20314-JYJD SKIN LESIONS, OVER 4 01/19/20 70489-VOBL SKIN LESIONS, OVER 4 10/13/19 25 23959-PPKN SKIN LESIONS, OVER 4 07/10/19 25 78561-JGLB SKIN LESIONS, OVER 4 12/20/19 24 63424-NRWT SKIN LESIONS, OVER 4 07/12/19 24 30363-DQEP SKIN LESIONS, OVER 4 04/29/20 23 41057-QQBU SKIN LESIONS, OVER 4 02/16/20 23 07862-JDGD SKIN LESIONS, OVER 4 11/27/19 23 96238-REZD SKIN LESIONS, OVER 4 08/28/19 23 08068-GVFL SKIN LESIONS, OVER 4 03/30/20 22 53882-KNSY SKIN LESIONS, OVER 4 01/20/20 22 64046-ROCF SKIN LESIONS, OVER 4 11/11/19 22 48941-CCDA SKIN LESIONS, OVER 4 08/22/19 22 58321-FOOA SKIN LESIONS, OVER 4 02/21/20 21 05021-BAPY SKIN LESIONS, OVER 4 06/12/19 22 Next Appt Details Provider Name:Trevor Daniels , 05/07/2025 11:15:00 AM, [address] [facility], [place], [address], Insurance Providers Payer Name Payer Address Payer Phone Subscriber Number Group Number Insured Name Patient Relationship to Insured Coverage Start Date Coverage End Date [facility] [employer] Claims [address] [place] [address] [phone] [id number] Octavio Elder Self - patient is the insured Medical (General) History Medical History History ICD Code Angina Anxiety Back,Hip,and Knee pain Cataracts Epilepsy Heart disease High blood pressure Kidney disease Numbness Poor circulation Psoriasis/eczema type II diabetes Surgical History Surgery Date(Month/Year) Eye Surgery - Glaucoma 08/09/2022
--- OUTSIDE RECORDS SUMMARY | 2025-02-07 17:05 | XMS_ITS | Patient Health Record ---
Author Organization [facility] Address [address] [place] [address] Care Team Providers Care Chucking Machine Operator Name Role Phone Severiano (RETIRED) Justen POSADAS Primary Care Provider Unavailable Clark Goncalves Unavailable [phone] Reason For Referral No Information Medications Medication [...] Problem Status W/U Status Risk Notes Problem 252187685 Encounter for screening for malignant neoplasm of colon (Z12.11) Active confirmed Problem 041497311 History of adenomatous polyp of colon (Z86.010) Active confirmed Problem 410733666 Gastroesophageal reflux disease without esophagitis (K21.9) Active confirmed Problem 623271474 Barretts esophag us without dysplasia (K22.70) Active confirmed Problem 30434919 Diarrhea, unspecified type (R19.7) Active confirmed Plan [...] Start Date Coverage End Date MEDICARE OF [facility] [address] [place] [address] [id number] GARY RICCI Self - patient is the insured Medical (General) History Medical History History ICD Code Blood clots in RLE removed by Dr. Arzola at [facility] 12/2009 2 [place]'s in 2000 with stents-no problems s sofia [...]
[2025-02-08 08:53] LABS: HBS Num1 6.52 mIU/mL (0-7.99); HBc Num1 0.06 S/CO (0.00-0.79); HBsAGNum1 0.50 S/CO (0.00-0.99); HIV Num 1 1.59 S/CO (0.00-0.99); Hepatitis B Surface Antigen Negative (Negative); ~HepC Num1 0.07 S/CO (0.00-0.79); ~Hepatitis B Surface Antibody NONREACTIVE (Nonreactive); ~Hepatitis C Antibody Nonreactive (Nonreactive)
[2025-02-08 10:42] LABS: HIV Num 2 0.05 S/CO; HIV Num 3 0.06 S/CO
== END 2025-02-07 12:07 | disposition home or self-care (01) ==
LOC: HO.10HDL 12:06
PROVIDERS: Visit Provider Physician Assistant
DX: Z11.59 Encounter for screening for other viral diseases (principal); Z11.4 Encounter for screening for human immunodeficiency virus [HIV]; R63.4 Abnormal weight loss; R63.0 Anorexia; R73.9 Hyperglycemia, unspecified; Z12.5 Encounter for screening for malignant neoplasm of prostate
CPT/HCPCS: 36415; 80048; 80076; 81001; 81003; 83036; 83540; 84153; 84443; 85025; 85652; 86140; 86704; 86706; 86803; 87340; 87389

== ENCOUNTER 2025-02-08 09:55 | Outpatient (AMB) | payer OTHER, SELFPAY ==
--- OUTSIDE RECORDS SUMMARY | 2024-05-04 09:45 | XMS_ITS ---
Author Organization [facility] Address [address] [place] [address] Care Team Providers Care Rig Superintendent Name Role Phone Severiano POSADAS, Justen Primary Care Provider UnavailTrevor Phan Unavailable [phone] Encounters Encounter Location Date Provider Diagnosis [address] [address] 05/04/2024 Trevor Daniels Plan Of Treatment Next Appt Details Provider Name:Trevor Daniels , 05/07/2025 11:15:00 AM, [address] [place], [address], Progress Notes * Octavio RICCIDOB: [birth year] (64 yo M)Acc No.[id number]:05/04/2024 Progress Note Patient: Keo BENTLEYOctavio Provider: Eze Daniels DPM :1960 A ge:63 Y S ex:Male Date:05/04/2024 Address:[address] [place], [place] [phone] Pcp:Justen العلي MD Subjective: * Chief Complaints: [...] 07/05/2023 Generated for Taty juarez/Lisa/Deniitting on: 0 02/08/2025 11:07 AM EDT
--- OUTSIDE RECORDS SUMMARY | 2024-06-15 09:45 | XMS_ITS ---
Author Organization [facility] Address [address] [place] [address] Care Team Providers Care Tractor Driver Teamster Name Role Phone Severiano POSADAS, Justen Primary Care Provider UnavailTrevor Phan Unavailable [phone] REASON FOR VISIT Seen Sooner Encounters Encounter Location Date Provider Diagnosis [facility] [address] [place] [address] 06/15/2024 Trevor Daniels Plan Of Treatment Next Appt Details Provider Name:Trevor Daniels , 05/07/2025 11:15:00 AM, [address] [place], [address], Progress Notes * Octavio RICCIDOB: [birth year] (64 yo M)Acc No.[id number]:06/15/2024 Progress Note Patient: Keo BENTLEYOctavio Provider: Eze Daniels DPM :1960 A ge:63 Y S ex:Male Date:06/15/2024 Address:[address] [place], [place] [phone] Pcp:Justen العلي MD Subjective: * Chief Complaints: [...] 06/15/2024 Generated for Taty juarez/Lisa/Fernandez on: 0 02/08/2025 11:08 AM EDT
--- NOTE | 2025-02-08 09:56 | A.OFFVIS_ITS ---
Vital Signs 02/08/25 09:57 Height 5 ft 9 in Weight 220 lb BMI 32.5 Pulse 87 Pulse Source Pulse Oximeter Pulse Oximetry (%) 95 Oxygen Delivery Method Room Air Intake Visit Reasons: DM Intake Note: Patient present today for Type 2 Diabetes Mellitus Last Diabetic eye exam:02/2024 Last Podiatry Visit: 01/2026 Random Glucose: 193 mg/dl HgA1C: 7.5% 01/11/25 Accompanied by: Self / Same As Patient Allergies morphine (MORPHINE) Allergy (Severe, Verified 02/08/25 09:57) PT STATES FLAT-LINED -WAS IN W/CP Medication List - Last Reconciled 02/08/25 by Alaina Coleman PA-C acetaminophen (Tylenol Extra Strength) 1,000 mg (2 x 500 mg) PO QID PRN albuterol sulfate 90 mcg/actuation (Ventolin HFA) 2 puffs inhalation Q6H PRN amitriptyline 25 mg PO BEDTIME aspirin (Adult Low Dose Aspirin) 81 mg PO DAILY 90 days blood sugar diagnostic (FreeStyle Lite Strips) 4 times a day blood-glucose meter (FreeStyle Lite Meter kit) 4 times a day blood-glucose meter (FreeStyle Teachey Lite kit) As directed bupropion HCl XL (Wellbutrin XL) 150 mg PO QAM calcium carbonate-vitamin D3 500 mg-15 mcg (600 unit) 1 tab PO DAILY certolizumab pegol (Cimzia) 400 mg subcut Q2W certolizumab pegol (Cimzia Starter Kit) mg subcut cholecalciferol (vitamin D3) 50 mcg PO DAILY diabetic supplies, [employer]. diabetic shoes use daily as directed. 1 pair empagliflozin (Jardiance) 25 mg PO QAM ezetimibe 10 mg PO DAILY foot care products Diabetic shoes use daily As directed glucagon 3 mg/actuation 3 mg intranasal ONCE PRN lancets (FreeStyle Lancets) 4 times a day leflunomide 20 mg PO DAILY lisinopril 5 mg PO DAILY loperamide (Anti-Diarrheal (loperamide)) 2 mg PO Q6H PRN meloxicam 15 mg PO DAILY metoprolol succinate ER 100 mg PO DAILY mupirocin 2% 1 appl topical BID-TID omega-3 acid ethyl esters 1 cap PO BID omeprazole 20 mg PO DAILY 90 days ondansetron HCl (Zofran) 4 mg PO Q8H PRN pen needle, diabetic 1 ea miscellaneous .5 times a day 30 days pregabalin mg PO primidone 250 mg PO BID rosuvastatin 40 mg PO DAILY semaglutide (Ozempic) 2 mg (0.75 mL) subcut QWEEK sertraline 50 mg PO DAILY trazodone 25 - 50 mg (0.5 - 1 x 50 mg) PO BEDTIME PRN warfarin 5 mg PO HPI HPI DM: Details: Patient is a 63-year-old male with a significant past medical history hypertension, hyperlipidemia, 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 Endo: His last A1c was 7.5 He is supposed to be on Tresiba U200 60 units at bedtime, humalog 20 units TID, Ozempic 2 mg, jardiance 25 mg. -He thinks ozempic is causing weight loss and he does not think he needs as much medication. He has a reduced appetite. He is getting a work up to r/o any other causes of weight loss. He has not been using any insulin. He states that he realized he was getting body aches and feeling sick with tresiba injections and sometimes humalog so he had d/c'd 3-4 weeks ago. Since stopping this he has not any low sugars and states that he is overall feeling significantly better. He states that he has not had jardiance for a few weeks due to pharmacy error. He is compliant with ozempic Metformin not tolerated with GI sx. Believes he has tried trulicity as well but cannot recall. He states when he takes novolog his glucose jumps up about 50 points and takes 2 hrs to start to lower the numbers. He also gets pain with injections. CGM-He has not used due to falling off regularly -He states all of his bs have been under 200 He has glucose tabs and candy to correct the lows. He is on an JOVANA-inhibitor, statin and pregabalin for his neuropathy. CV: Blood pressure today in the office is 110/74. He is on lisinopril 5 mg, metoprolol 100 mg. He is on Crestor 40 mg and Zetia 10 mg. Last LDL was 60. 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 Surgical History History of colonoscopy (~01/18/18) History of open reduction and internal fixation (ORIF) procedure History of ear surgery History of carpal tunnel surgery of left wrist History of intraocular lens implant Hx of vasectomy Hx of appendectomy Hx of hernia repair Hx of arthroscopy of knee History of left nephrectomy Family History Father Lung cancer Mother FH: ovarian cancer in first degree relative Diabetes Social History Housing: House (Lives with daughter) Alcohol intake: former Patient Tobacco Use Status: Former Tobacco user (Quite in 1989) Years Smoked: quit at 31 years old e-Cigarette/Vaping Use: Never Used Substance Use Type: Marijuana service: No Current occupational status: retired and disabled Cognitive needs: Yes (Cane and walker PRN long distances) Vision needs: Yes (Reading glasses) Physical Exam Vital Signs: BMI result Body Mass Index 32.5 Const Orientation/consciousness: patient oriented x3 HEENT Ears: hearing grossly normal bilaterally Neck Thyroid: Thyroid normal Lymphatic: no lymphadenopathy noted Resp Auscultation: clear to auscultation bilaterally Cardio Rate: regular rate Rhythm: regular rhythm Heart sounds: S1 normal heart sound present and S2 normal heart sound present Skin General skin exam: no rashes or lesions noted Neuro General: patient oriented x3, gait normal and no focal motor deficits Assessment & Plan Assessment & Plan (1) Diabetic nephropathy associated with type 2 diabetes mellitus: Code(s): E11.21 - Type 2 diabetes mellitus with diabetic nephropathy Category: Medical Plan: continue ozempic 2 mg weekly continue/restart jardiance to 25 mg f/u in 1-2 months since stopping insulin is somewhat new. (2) HTN (hypertension): Code(s): I10 - Essential (primary) hypertension Category: Medical Qualifiers: Hypertension type: unspecified Qualified Code(s): I10 - Essential (primary) hypertension Plan: wnl continue current plan Medications: Refilled empagliflozin (Jardiance) 25 mg PO QAM 90 tabs 3RF Coding Level of Care Code Est Pt Level 4 (78342) Complex EM visit Add On G2211 Diagnoses Diabetic nephropathy associated with type 2 diabetes mellitus E11.21 Hypertension, unspecified type I10 Hypertension type: unspecified
[2025-02-08 09:57] VITALS: PULSE 87; O2SAT 95; BMI 32.5
[2025-02-08 10:13] LABS: Glucose, Whole Blood 193 mg/dL (60-115)
--- OUTSIDE RECORDS SUMMARY | 2025-02-08 11:07 | XMS_ITS | Clinical Summary ---
Author Organization [facility] Address [address] [place] [address] Phone Care Team Providers Care Drupal Web Developer Name Role Phone Justen العلي MD Primary [...] Type Department Care Team Description 12/28/[address] [facility] Neurology [address] [place] [address] [place] [address] Jesse العلي MD Medication Problem 12/17/2024 11:30 AM EDT Office Visit [facility] Neurology [address] [place] [address] [place] [address] Jesse العلي MD Essential tremor (Primary Dx) [...] 06/20/2025 11:00 AM EST Office Visit [facility] Neurology [address] [place] [address] Jesse العلي MD [address] [facility], 2nd [place] [address] [email or web address] Health Maintenance Due Date Last Done Comments [...] topic Medical Devices Not on file Insurance [facility] ONE CARE MEDICARE [place] [address] [place] [address] [place] [address] [place] [address] [place] [address] MEDICARE REPLACEMENT [facility] ONE CARE MEDICARE REPLACEMENT [facility] MEDIC[facility] REPLACEMENT Care Teams Drupal Web Developer Relationship Specialty Start Date End Date Justen العلي MD [address] [place] [address] [place] [address] PCP - General Internal Medicine 01/17/24 Additional Source Comments The information contained in this document represents components of the legal health record. It is not the complete legal health record.[facility]
--- OUTSIDE RECORDS SUMMARY | 2025-02-08 11:07 | XMS_ITS | Clinical Summary ---
Author Organization [facility] Facility Address [address] [place] [address] Care Team Providers Care Skidder Name Role Phone Justen العلي MD Primary Care Provider [phone] Allergies Active Allergy Reactions Criticality Noted Date [...] [facility] ([id number]) [place] [facility] ([id number]) [place] Care Teams Skidder Relationship Specialty Start Date End Date Justen العلي MD [address] [place] [address] [place] [address] PCP - General Internal Medicine 09/16/21
--- OUTSIDE RECORDS SUMMARY | 2025-02-08 11:08 | XMS_ITS | Patient Health Record ---
[facility] Address [address] [place] [address] Care Team Providers Care Installation Drafter Name Role Phone Justen العلي MD Primary Care Provider Unavailab Trevor Amador Unavailable [phone] Allergies Allergen (clinical drug ingredient) Drug/Non Drug [...] Problem Acquired hammer toe of right foot (3020822055532662 ) Other hammer toe(s) (acquired), right foot (M20.41) Active confirmed Response to treatment, Improvemen t Problem Acquired hammer toe of left foot (8018548173955119 ) Other hammer toe(s) (acquired), left foot (M20.42) Active confirmed Response to treatment, Improvemen t Problem Polyneuropathy due to type 2 diabetes mellitus (827206300) Type 2 diabetes mellitus with diabetic polyneuropathy (E11.42) Active confirmed Vital Signs Blood pressure diastolic 65 mm Hg 01/18/2025 Height 5ft 9in in 01/18/2025 Blood pressure systolic 126 mm Hg 01/18/2025 Weight 217 lbs 01/18/2025 BMI 32.04 kg/m2 01/18/2025 Procedures Procedure Date Ordered Date Performed Result Body Sit e 21181-MSOJZDD NAIL, 6 OR MORE 07/10/2024 N/A 35588-FLEP SKIN LESIONS, OVER 4 07/10/2024 N/A 17951-GVDDEJG NAIL, 6 OR MORE 10/12/2024 N/A 81721-CYZK SKIN LESIONS, OVER 4 10/12/2024 N/A 03865-PIZYWFP NAIL, 6 OR MORE 01/18/2025 N/A 42319-PYJY SKIN LESIONS, OVER 4 01/18/2025 N/A Encounters Encounter Location Date Provider Diagnosis [address] [address] 07/10/2024 Trevor Frances Type 2 diabetes mellitus with diabetic polyneuropathy E11.42 ; Tinea unguium B35.1 ; Other hammer toe(s) (acquired), right foot M20.41 and Other hammer toe(s) (acquired), left foot M20.[address] [address] 10/12/2024 Trevorvalerio Daniels Type 2 diabetes mellitus with diabetic polyneuropathy E11.42 and Tinea unguium B35.[address] [address] 01/18/2025 Trevor Daniels Type 2 diabetes mellitus with diabetic polyneuropathy E11.42 ; Tinea unguium B35.1 ; Other hammer toe(s) (acquired), right foot M20.41 and Other hammer toe(s) (acquired), left foot M20.[address] [facility] [address] 03/20/2024 Trevor Daniels [facility] [address] [address] 05/04/2024 Trevor Daniels Assessments Encounter Date Diagnosis [...] Treatment Pending Test Test Name Order Date 76392-KRKAYXO NAIL, 6 OR MORE 02/20/2021 00331-ESZESGV NAIL, 6 OR MORE 06/12/2021 67467-IDXGVWP NAIL, 6 OR MORE 08/21/2021 41432-ICIEWVX NAIL, 6 OR MORE 11/10/2021 66041-AAOFWUU NAIL, 6 OR MORE 01/19/2022 96764-GTKFQWF NAIL, 6 OR MORE 03/30/2022 00323-AWYSLUI NAIL, 6 OR MORE 08/27/2022 21274-FZEOGWA NAIL, 6 OR MORE 11/26/2022 88567-YUBHJOK NAIL, 6 OR MORE 02/15/2023 32736-VCOQRLI NAIL, 6 OR MORE 04/29/2023 34193-WPXZVUK NAIL, 6 OR MORE 07/12/2023 36767-VKPRTTH NAIL, 6 OR MORE 12/20/2023 87498-ARWKTCO NAIL, 6 OR MORE 07/10/2024 26289-YTDUJZU NAIL, 6 OR MORE 10/12/2024 19773-GEVZECG NAIL, 6 OR MORE 01/18/2025 55112-VKAR SKIN LESIONS, OVER 4 01/19/20 54191-WQGF SKIN LESIONS, OVER 4 10/13/19 25 75593-OOFV SKIN LESIONS, OVER 4 07/10/19 25 61506-GVCO SKIN LESIONS, OVER 4 12/20/19 24 91859-KWKV SKIN LESIONS, OVER 4 07/12/19 24 81014-PWYQ SKIN LESIONS, OVER 4 04/29/20 23 27363-YWMJ SKIN LESIONS, OVER 4 02/16/20 23 19786-EHAM SKIN LESIONS, OVER 4 11/27/19 23 79551-KISV SKIN LESIONS, OVER 4 08/28/19 23 69439-MYYK SKIN LESIONS, OVER 4 03/30/20 22 92395-AEXQ SKIN LESIONS, OVER 4 01/20/20 22 63320-AZLJ SKIN LESIONS, OVER 4 11/11/19 22 77061-LPIO SKIN LESIONS, OVER 4 08/22/19 22 52769-WDKQ SKIN LESIONS, OVER 4 02/21/20 21 33764-FZCJ SKIN LESIONS, OVER 4 06/12/19 22 Next Appt Details Provider Name:Trevor Daniels , 05/07/2025 11:15:00 AM, [address] [facility], [place], [address], Insurance Providers Payer Name Payer Address Payer Phone Subscriber Number Group Number Insured Name Patient Relationship to Insured Coverage Start Date Coverage End Date [facility] SCO Claims [address] [place] [phone] [id number] Octavio Elder Self - patient is the insured Medical (General) History Medical History History ICD Code Angina Anxiety Back,Hip,and Knee pain Cataracts Epilepsy Heart disease High blood pressure Kidney disease Numbness Poor circulation Psoriasis/eczema type II diabetes Surgical History Surgery Date(Month/Year) Eye Surgery - Glaucoma 08/09/2022
--- OUTSIDE RECORDS SUMMARY | 2025-02-08 11:08 | XMS_ITS | Patient Health Record ---
Author Organization [facility] Address [address] [place] [address] Care Team Providers Care Computer Art Instructor Name Role Phone Severiano (RETIRED) Justen POSADAS Primary Care Provider Unavailable Clark Goncalves Unavailable [phone] Reason For Referral No Information Medications Medication [...] Problem Status W/U Status Risk Notes Problem 344355686 Encounter for screening for malignant neoplasm of colon (Z12.11) Active confirmed Problem 712767495 History of adenomatous polyp of colon (Z86.010) Active confirmed Problem 729383285 Gastroesophageal reflux disease without esophagitis (K21.9) Active confirmed Problem 777649462 Barretts esophag us without dysplasia (K22.70) Active confirmed Problem 65222463 Diarrhea, unspecified type (R19.7) Active confirmed Plan [...] Start Date Coverage End Date MEDICARE OF [facility] [address] [place] [address] [id number] GARY RICCI Self - patient is the insured Medical (General) History Medical History History ICD Code Blood clots in RLE removed by Dr. Arzola at [facility] 12/2009 2 OH's in 2000 with stents-no problems s sofia [...]
== END 2025-02-08 10:29 | disposition home or self-care (01) ==
LOC: HO.ENCR 09:55
PROVIDERS: PCP Family Medicine; Visit Provider Physician Assistant
DX: E11.21 Type 2 diabetes mellitus with diabetic nephropathy (principal); I10 Essential (primary) hypertension

== ENCOUNTER → 2025-02-08 09:55 | Outpatient (BNVA) | payer OTHER, SELFPAY | PROVIDERS: PCP Family Medicine; Visit Provider Physician Assistant | DX: E11.21 Type 2 diabetes mellitus with diabetic nephropathy (principal); E11.40 Type 2 diabetes mellitus with diabetic neuropathy, unspecified; E78.5 Hyperlipidemia, unspecified; I10 Essential (primary) hypertension; Z79.899 Other long term (current) drug therapy; Z79.84 Long term (current) use of oral hypoglycemic drugs | CPT/HCPCS: 82947; 99212 ==

== ENCOUNTER 2025-03-21 12:40 | Outpatient (REF) | payer OTHER, SELFPAY ==
--- OUTSIDE RECORDS SUMMARY | 2023-09-30 08:45 | XMS_ITS ---
Author Organization [facility] Address [address] [place] [address] Care Team Providers Care Crane Follower Name Role Phone Severiano POSADAS, Justen Primary Care Provider Unavailab Trevor Amador Unavailable [phone] Mcguire Encounters Encounter Location Date Provider Diagnosis [facility] [address] [place] [address] 09/30/2023 Trevor Daniels Plan Of Treatment Next Appt Details Provider Name:Trevor Daniels , 05/07/2025 11:15:00 AM, [address] [place], [address], Progress Notes * Octavio RICCIDOB: [birth year] (64 yo M)Acc No.[id number]:09/30/2023 Progress Note Patient: Keo BENTLEY Octavio Patino Provider: Eze Daniels DPM :1960 A ge:62 Y S ex:Male Date:09/30/2023 Address:[address] [place], [place] [id number] Pcp:Justen العلي MD Subjective: * Chief Complaints: * [address]guire. * Medical History: Objective: * Vitals: Assessment: Plan: * Treatment: * Images: * The named appointment provid er may or may not be the originator of this progress note, and it is not deemed complete until electronically signed by the appointment provider. Sign off status: Pending * Provider: Eze Daniels DPM Date: 0 09/30/2023 Generated for Taty Varma/Fernandez on: 1 05/21/2024 03:30 PM EST
--- OUTSIDE RECORDS SUMMARY | 2023-10-11 05:00 | XMS_ITS ---
Author Organization [facility] Address [address] [place] [address] Care Team Providers Care Crop Farm Helper Name Role Phone Severiano POSADAS, Justen Primary Care Provider UnavailTrevor Phan Unavailable [phone] Encounters Encounter Location Date Provider Diagnosis [address] [address] 10/11/2023 Trevor Daniels Plan Of Treatment Next Appt Details Provider Name:Trevor Daniels , 05/07/2025 11:15:00 AM, [address] [place], [address], Progress Notes * Octavio RICCIDOB: [birth year] (64 yo M)Acc No.[id number]:10/11/2023 Progress Note Patient: Keo BENTLEYOctavio Provider: Eze Daniels DPM :1960 A ge:62 Y S ex:Male Date:10/11/2023 Address:[address] [place], [place] [id number] Pcp:Justen العلي MD Subjective: * Chief Complaints: * * Medical History: Objective: * Vitals: Assessment: Plan: * Treatment: * Images: * The named appointment provid er may or may not be the originator of this progress note, and it is not deemed complete until electronically signed by the appointment provider. Sign off status: Pending * Provider: Eze Daniels DPM Date: 10/11/2023 Generated for Taty juarez/Lisa/Fernandez on: 1 05/21/2024 03:27 PM EST
--- OUTSIDE RECORDS SUMMARY | 2024-03-20 08:30 | XMS_ITS ---
Author Organization [facility] Address [address] [place] [address] Care Team Providers Care Port Cdl A Driver Name Role Phone Severiano POSADAS, Justen Primary Care Provider UnavailTrevor Phan Unavailable [phone] Encounters Encounter Location Date Provider Diagnosis [address] [address] 03/20/2024 Trevor Daniels Plan Of Treatment Next Appt Details Provider Name:Trevor Daniels , 05/07/2025 11:15:00 AM, [address] [place], [address], Progress Notes * Octavio RICCIDOB: [birth year] (64 yo M)Acc No.[id number]:03/20/2024 Progress Note Patient: Keo BENTLEYOctavio Provider: Eze Daniels DPM :1960 A ge:63 Y S ex:Male Date:03/20/2024 Address:[address] [place], [place] [id number] Pcp:Justen العلي MD Subjective: * Chief Complaints: [...] 05/20/2023 Generated for Taty juarez/Lisa/Fernandez on: 1 05/21/2024 03:27 PM EST
--- OUTSIDE RECORDS SUMMARY | 2024-05-04 08:45 | XMS_ITS ---
Author Organization [facility] Address [address] [place] [address] Care Team Providers Care Business Services Vice President Name Role Phone Severiano POSADAS, Justen Primary Care Provider UnavailTrevor Phan Unavailable [phone] Encounters Encounter Location Date Provider Diagnosis [address] [address] 05/04/2024 Trevor Daniels Plan Of Treatment Next Appt Details Provider Name:Trevor Daniels , 05/07/2025 11:15:00 AM, [address] [place], [address], Progress Notes * Octavio RICCIDOB: [birth year] (64 yo M)Acc No.[id number]:05/04/2024 Progress Note Patient: Keo BENTLEYOctavio Provider: Eze Daniels DPM :1960 A ge:63 Y S ex:Male Date:05/04/2024 Address:[address] [place], [place] [phone] Pcp:Justen العلي MD Subjective: * Chief Complaints: [...] 07/05/2023 Generated for Taty juarez/Lisa/Fernandez on: 1 05/21/2024 03:28 PM EST
--- OUTSIDE RECORDS SUMMARY | 2024-06-15 08:45 | XMS_ITS ---
Author Organization [facility] Address [address] [place] [address] Care Team Providers Care Rehabilitation Physician Name Role Phone Severiano POSADAS, Justen Primary Care Provider UnavailTrevor Phan Unavailable [phone] REASON FOR VISIT Seen Sooner Encounters Encounter Location Date Provider Diagnosis [facility] [address] [place] [address] 06/15/2024 Trevor Daniels Plan Of Treatment Next Appt Details Provider Name:Trevor Daniels , 05/07/2025 11:15:00 AM, [address] [place], [address], Progress Notes * Octavio RICCIDOB: [birth year] (64 yo M)Acc No.[id number]:06/15/2024 Progress Note Patient: Keo BENTLEYOctavio Provider: Eze Daniels DPM :1960 A ge:63 Y S ex:Male Date:06/15/2024 Address:[address] [place], [place] [id number] Pcp:Justen العلي MD Subjective: * Chief Complaints: [...] DPM Date: 0 06/15/2024 Generated for Taty Betancourt on: 1 05/21/2024 03:29 PM EST
--- NOTE | ~2025-03-21 | CT_ITS ---
EXAMINATION: CT CHEST WITH CONTRAST CLINICAL INFORMATION: Abnormal weight loss. COMPARISON: None available. TECHNIQUE: Multidetector volumetric CT imaging of the chest was obtained after the administration of 85 mL of Omnipaque 350 intravenous contrast without immediate adverse reactions. Axial MIP volume rendering provided. Sagittal and coronal reformatted images were obtained. This CT examination was performed using dose optimization techniques as appropriate, variously including the following: *Automated exposure control *Adjustment of mA and/or kV according to patient size (this includes techniques or standardized protocols for targeted exams where dose is matched to indication/reason for exam; i.e. extremities or head) *Use of iterative reconstruction technique. DLP: 180.2 mGy-cm FINDINGS: CAR RECORD CLERK: Patient's large body habitus. Prominent aortic arch. Multilevel thoracolumbar spondylosis. LUNGS: No pulmonary nodules. Pulmonary patchy groundglass, posterior segment, right upper lung lobe.. Bilateral apical lung scarring. Respiratory airways is patent. No bronchiectasis. No honeycombing. MEDIASTINUM: Nonspecific prominent mediastinal and perihilar lymph nodes. No aneurysm or dissection, thoracic aorta. Calcified plaque in the thoracic aorta wall and its main branches. This is arterial phase enhancement of the thoracic aorta and the left heart chambers. Calcified plaques in the coronary arteries. No gross pericardial effusion. No pneumomediastinum. No hemopericardium. The thyroid gland is not enlarged. PLEURA: No pleural effusion. No pneumothorax. No calcified pleural plaques. AXILLA: No lymphadenopathy. UPPER ABDOMEN: Hiatal hernia, small size. OSSEOUS STRUCTURES: Multilevel cervical thoracic spondylosis. No acute fracture or listhesis. No lytic or blastic lesions. Sternum is intact. No acute rib fracture. Degenerative changes in the glenohumeral joints. CT/CT abdomen pelvis w IV con IMPRESSION: Patchy pulmonary groundglass, posterior segment right upper lung lobe. Differential diagnostic considerations include inflammatory versus infectious versus neoplasm. Coronary artery disease and atherosclerosis disease. EXAMINATION: CT ABDOMEN AND PELVIS WITH CONTRAST CLINICAL INFORMATION: R 63.4. Abnormal weight loss. COMPARISON: July 20, 2018. TECHNIQUE: Multidetector volumetric images were obtained from the superior aspect of the liver through the pubic symphysis following administration 85 mL of Omnipaque 350 intravenous contrast. Sagittal and coronal reformatted images were obtained on the technologist's workstation. Oral contrast: Yes This CT examination was performed using dose optimization techniques as appropriate, variously including the following: *Automated exposure control *Adjustment of mA and/or kV according to patient size (this includes techniques or standardized protocols for targeted exams where dose is matched to indication/reason for exam; i.e. extremities or head) *Use of iterative reconstruction technique. DLP: 476.0 mGy-cm FINDINGS: LIVER, GALLBLADDER, AND BILIARY TREE: Liver measures 16 cm. No enhancing mass. Main portal vein and hepatic veins are patent. There are less than 5 mm calcification within the gallbladder lumen. No distention. No pericholecystic fluid collection or gallbladder wall thickening. No intrahepatic or extrahepatic biliary ductal dilatation. PANCREAS: No focal mass. No peripancreatic fluid collection. No main pancreatic ductal dilatation. SPLEEN: 9 cm. No solid or cystic lesion. ADRENAL GLANDS: No nodular lesion. KIDNEYS AND URETERS: Right kidney: No enhancing renal mass. No hydronephrosis. No gross nephrolithiasis. Normal enhancement pattern of the renal parenchyma. No dilatation of the right ureter. Left kidney: Absent in the retroperitoneum. Centimeter fluid-filled tubular structure in the left posterior bladder. There is a 13 mm fluid-filled ovoid shaped structure in the right posterior bladder. BLADDER: Fluid-filled with the probable fluid-filled diverticulum, right and left sides. GASTROINTESTINAL TRACT: Abundant stool, large intestine. Collapsed appearance of the left hemicolon. No intestinal obstruction pattern. Terminal ileum is normal. I do not see the appendix. No pneumatosis intestinalis. No ascites. No pneumoperitoneum. Hiatal hernia, small to moderate volume. ABDOMINAL WALL: Small tiny fat-containing umbilical hernia. LYMPH NODES: No mesenteric or retroperitoneal lymphadenopathy. VASCULAR: Mixed plaques throughout the abdominal aorta wall and iliac arteries without aneurysm or dissection. Calcified plaque in the coronary arteries, thoracic aorta, origin of the mesenteric arteries and the right main renal artery calcified plaque in the femoral arteries. PELVIC VISCERA: Not enlarged. OSSEOUS STRUCTURES: Multilevel thoracolumbar spondylosis and levoconvex thoracolumbar scoliosis. Sclerosis and the sacroiliac joints. Mild degenerative changes in the coxofemoral joints and symphysis pubis. No acute fracture or listhesis. No gross lytic or blastic lesions. IMPRESSION: Absent left kidney. Urinary bladder diverticula. Cholelithiasis. Coronary artery disease and atherosclerosis disease. Fleischner guidelines were followed. Fleischner guidelines were followed. Electronically signed by: Dayron Guadarrama MD 03/21/2025 03:49 PM PILO RP
--- OUTSIDE RECORDS SUMMARY | 2025-03-21 15:28 | XMS_ITS | Clinical Summary ---
Author Organization [facility] Address [address] [place] [address] Phone Care Team Providers Care Field Administrator Name Role Phone Justen العلي MD [...] Type Department Care Team Description 12/28/2024 Telephone [facility] [address] [place] [address] Jesse العلي MD Medication Problem from Last 3 Months Social History Tobacco [...] Description 06/20/2025 11:00 AM EST Office Visit [facility] [address] [place] [address] Jesse العلي MD [address] [place] [address] [place] [address] [email or web address] Health Maintenance Due Date Last Done Comments [...] ears) (1 of 1 - PCV) 2008 RSV VACCINE (1 - Risk 50-74 years 1-dose series) 2008 ZOSTER VACCINES (1 of 2) 2008 INFLUENZA VACCINE (#1) 2024 COVID-19 VACCINE (1 - 2024-2 6 season) 2025 HEPATITIS A VACCINES Aged Out [...] topic Medical Devices Not on file Insurance [facility] CARE MEDICARE REPLACEMENT [place] [id number] MEDICARE REPLACEMENT MEDICARE [place]PLAC[place] [address] MEDICARE REPLACEMENT [facility] [place] [address] [facility] CARE MEDICARE REPLACEMENT [facility] [place] [address] [facility] MEDICARE REPLACEMENT Care Teams Field Administrator Relationship Specialty Start Date End Date Justen العلي MD [address] [place] [address] [place] [address] PCP - General Internal Medicine 01/17/24 Additional Source Comments The information contained in this document represents components of the legal health record. It is not the complete legal health record.[facility]
--- OUTSIDE RECORDS SUMMARY | 2025-03-21 15:28 | XMS_ITS | Patient Health Record ---
Author Organization [facility] Address [address] [place] [address] Care Team Providers Care Electric Spot Welder Name Role Phone COLUMBA SHAFFER Primary Care Provider Clark Salgado Unavailable [phone] Reason For Referral No Information Medications Medication [...] Problem Status W/U Status Risk Notes Problem Screening for malignant neoplasm of colon (173188714) Encounter for screening for malignant neoplasm of colon (Z12.11) Active confirmed Problem History of adenomatous polyp of colon (470222231) History of adenomatous polyp of colon (Z86.010) Active confirmed Problem Gastroesophageal reflux disease without esophagitis (430770906) Gastroesophageal reflux disease without esophagitis (K21.9) Active confirmed Problem Mckinney's esophagus (186262462) Barretts esophagus without dysplasia (K22.70) Active confirmed Problem Diarrhea (75386030) Diarrhea, unspecified type (R19.7) Active confirmed Plan Of Treatment Pending Test Test Name Order Date GI BIOPSY 01/18/2018 CLOSTRIDIUM DIFF TOXIN A&B (C DIFF) 11/13 STOOL WBC 11/24/2017 GIARDIA AG, STOOL EIA 11/24/2017 OVA & PARASITES (O&P) 11/24/2017 CULTURE, STOOL 11/24/2017 Future Test Test Name Order Date UPPER GI ENDOSCOPY 08/24/2011 COLONOSCOPY 08/24/2011 UPPER GI ENDOSCOPY 11/24/2017 COLONOSCOPY 11/24/2017 Next Appt Details Provider Name:Clark Goncalves , 06/05/2025 03:00:00 PM, [address] [facility], [address], [place], [address], Insurance Providers Payer Name Payer Address Payer Phone Subscriber Number Group Number Insured Name Patient Relationship to Insured Coverage Start Date Coverage End Date [facility] [address] Attn Claims [place] [id number] GARY RICCI Self - patient is the insured MEDICARE OF [place] [address] [place] [address] [id number] GARY RICCI Self - patient is the insured Medical (General) History Medical History History ICD Code Blood clots in RLE removed by Dr. Arzola at [facility] 12/2009 2 SD's in 2000 with stents-no problems s sofia [...]
[2025-03-21] MEDS: iohexoL 350 MG/ML 100 ML INFUS..BTL 85 ML IV (15:29)
[2025-03-21] MEDS: Barium Sulfate Oral (Vanilla) 450 ML ORAL.SUSP 900 ML PO (15:29)
--- OUTSIDE RECORDS SUMMARY | 2025-03-21 15:30 | XMS_ITS | Patient Health Record ---
[facility] Address [address] [place] [address] Care Team Providers Care Pointing Machine Operator Name Role Phone Justen العلي MD Primary Care Provider Unavailab Trevor Amador Unavailable [phone] Allergies Allergen (clinical drug ingredient) Drug/Non Drug [...] Problem Acquired hammer toe of right foot (2917461039857058 ) Other hammer toe(s) (acquired), right foot (M20.41) Active confirmed Response to treatment, Improvemen t Problem Acquired hammer toe of left foot (0721760028979428 ) Other hammer toe(s) (acquired), left foot (M20.42) Active confirmed Response to treatment, Improvemen t Problem Polyneuropathy due to type 2 diabetes mellitus (818331403) Type 2 diabetes mellitus with diabetic polyneuropathy (E11.42) Active confirmed Vital Signs Blood pressure diastolic 65 mm Hg 01/18/2025 Height 5ft 9in in 01/18/2025 Blood pressure systolic 126 mm Hg 01/18/2025 Weight 217 lbs 01/18/2025 BMI 32.04 kg/m2 01/18/2025 Procedures Procedure Date Ordered Date Performed Result Body Sit e 93679-XUINDRG NAIL, 6 OR MORE 07/10/2024 N/A 12458-INXD SKIN LESIONS, OVER 4 07/10/2024 N/A 42730-AGHIIRK NAIL, 6 OR MORE 10/12/2024 N/A 29798-FEDP SKIN LESIONS, OVER 4 10/12/2024 N/A 55999-ZKHDVUG NAIL, 6 OR MORE 01/18/2025 N/A 13534-XZDL SKIN LESIONS, OVER 4 01/18/2025 N/A Encounters Encounter Location Date Provider Diagnosis [address] [address] 07/10/2024 Trevor Frances Type 2 diabetes mellitus with diabetic polyneuropathy E11.42 ; Tinea unguium B35.1 ; Other hammer toe(s) (acquired), right foot M20.41 and Other hammer toe(s) (acquired), left foot M20.[address] [address] 10/12/2024 Trevorvalerio Daniels Type 2 diabetes mellitus with diabetic polyneuropathy E11.42 and Tinea unguium B35.[address] [address] 01/18/2025 Trevor Daniels Type 2 diabetes mellitus with diabetic polyneuropathy E11.42 ; Tinea unguium B35.1 ; Other hammer toe(s) (acquired), right foot M20.41 and Other hammer toe(s) (acquired), left foot M20.42 [facility] [address] [place] [address] 05/04/2024 Trevor Daniels Assessments Encounter Date Diagnosis [...] Treatment Pending Test Test Name Order Date 11608-PEMFJEF NAIL, 6 OR MORE 02/20/2021 12881-BHXMFUS NAIL, 6 OR MORE 06/12/2021 17189-YAYTSMB NAIL, 6 OR MORE 08/21/2021 44947-WIPUGXQ NAIL, 6 OR MORE 11/10/2021 96432-WPLNSJX NAIL, 6 OR MORE 01/19/2022 05888-OXGBFYL NAIL, 6 OR MORE 03/30/2022 11086-PTXNCLL NAIL, 6 OR MORE 08/27/2022 03242-YNVBUXL NAIL, 6 OR MORE 11/26/2022 40114-GQXLAAQ NAIL, 6 OR MORE 02/15/2023 87203-ZQVAGUT NAIL, 6 OR MORE 04/29/2023 08904-WRHKQIU NAIL, 6 OR MORE 07/12/2023 84445-LDLVXFI NAIL, 6 OR MORE 12/20/2023 75355-BOOSRDI NAIL, 6 OR MORE 07/10/2024 75775-PICGSXK NAIL, 6 OR MORE 10/12/2024 94040-SGSQLUP NAIL, 6 OR MORE 01/18/2025 82661-SCLD SKIN LESIONS, OVER 4 01/19/20 57995-BVFJ SKIN LESIONS, OVER 4 10/13/19 55517-DRVI SKIN LESIONS, OVER 4 07/10/19 49741-GGKH SKIN LESIONS, OVER 4 12/20/19 24 68400-BVYQ SKIN LESIONS, OVER 4 07/12/19 24 69697-CNXI SKIN LESIONS, OVER 4 04/29/20 23 36933-HJNY SKIN LESIONS, OVER 4 02/16/20 23 40211-SJKJ SKIN LESIONS, OVER 4 11/27/19 23 82335-OUUW SKIN LESIONS, OVER 4 08/28/19 23 00851-TFZR SKIN LESIONS, OVER 4 03/30/20 22 17101-VZNF SKIN LESIONS, OVER 4 01/20/20 22 29145-YIKL SKIN LESIONS, OVER 4 11/11/19 22 47200-WULT SKIN LESIONS, OVER 4 08/22/19 74073-VOBV SKIN LESIONS, OVER 4 02/21/20 21 75475-EQSW SKIN LESIONS, OVER 4 06/12/19 22 Next Appt Details Provider Name:Trevor Kelley Frances , 05/07/2025 11:15:00 AM, [address] [facility], [place], [address], Insurance Providers Payer Name Payer Address Payer Phone Subscriber Number Group Number Insured Name Patient Relationship to Insured Coverage Start Date Coverage End Date [facility] [employer] SCO Claims [address] [place] [phone] [id number] Octavio Elder Self - patient is the insured Medical (General) History Medical History History ICD Code Angina Anxiety Back,Hip,and Knee pain Cataracts Epilepsy Heart disease High blood pressure Kidney disease Numbness Poor circulation Psoriasis/eczema type II diabetes Surgical History Surgery Date(Month/Year) Eye Surgery - Glaucoma 08/09/2022
[2025-03-22 15:58] LABS: Creatinine POC 0.9 mg/dL (0.5-1.4); GFR POC > 60
== END 2025-03-21 12:41 | disposition home or self-care (01) ==
LOC: HO.CT 12:40
PROVIDERS: PCP Family Medicine; Visit Provider Physician Assistant
DX: R63.4 Abnormal weight loss (principal); R63.0 Anorexia
CPT/HCPCS: 71260; 74177; 82565; Q9967

== ENCOUNTER → 2025-03-21 12:42 | Outpatient (BNV) | payer OTHER, SELFPAY | PROVIDERS: PCP Family Medicine; Visit Provider Radiology Diagnostic Radiology | DX: K80.20 Calculus of gallbladder without cholecystitis without obstruction (principal); N32.3 Diverticulum of bladder; Z90.5 Acquired absence of kidney; R91.8 Other nonspecific abnormal finding of lung field; I25.10 Atherosclerotic heart disease of native coronary artery without angina pectoris | CPT/HCPCS: 71260; 74177 ==

== ENCOUNTER 2025-04-15 10:10 | Outpatient (AMB) | payer OTHER, SELFPAY ==
[2025-04-15 10:12] VITALS: BP 112/82; PULSE 94; O2SAT 97; BMI 31.4
--- NOTE | 2025-04-15 10:12 | MHC.OFFVIS ---
Vital Signs 04/15/25 10:12 Height 5 ft 9 in Weight 212 lb 15.465 oz BMI 31.4 BP 112/82 Blood Pressure Location Lt brachial Position Sitting Pulse 94 Pulse Source Pulse Oximeter Pulse Oximetry (%) 97 Oxygen Delivery Method Room Air Intake Visit Reasons: T2DM Intake Note: Patient present today for Type 2 Diabetes Mellitus Last Diabetic eye exam: Last exam was on 02/27/25 @ [facility]. Last Podiatry Visit: Last seen about a month and a half ago. Random Glucose: 312 mg/dl HgA1C: 8.5% 02/07/25 Custom Leather Products Maker Required: No Accompanied by: Self / Same As Patient Allergies morphine (MORPHINE) Allergy (Severe, Verified 04/15/25 10:18) PT STATES FLAT-LINED -WAS IN W/CP Medication List - Last Reconciled 04/15/25 by Alaina Coleman PA-C acetaminophen (Tylenol Extra Strength) 1,000 mg (2 x 500 mg) PO QID PRN albuterol sulfate 90 mcg/actuation (Ventolin HFA) 2 puffs inhalation Q6H PRN amitriptyline 25 mg PO BEDTIME aspirin (Adult Low Dose Aspirin) 81 mg PO DAILY 90 days blood sugar diagnostic (FreeStyle Lite Strips) 4 times a day blood-glucose meter (FreeStyle Lite Meter kit) 4 times a day blood-glucose meter (FreeStyle [place] Lite kit) As directed bupropion HCl XL (Wellbutrin XL) 150 mg PO QAM calcium carbonate-vitamin D3 500 mg-15 mcg (600 unit) 1 tab PO DAILY certolizumab pegol (Cimzia) 400 mg subcut Q2W certolizumab pegol (Cimzia Starter Kit) mg subcut cholecalciferol (vitamin D3) 50 mcg PO DAILY diabetic supplies, miscellan. diabetic shoes use daily as directed. 1 pair empagliflozin (Jardiance) 25 mg PO QAM ezetimibe 10 mg PO DAILY foot care products Diabetic shoes use daily As directed glucagon 3 mg/actuation 3 mg intranasal ONCE PRN lancets (FreeStyle Lancets) 4 times a day leflunomide 20 mg PO DAILY lisinopril 5 mg PO DAILY loperamide (Anti-Diarrheal (loperamide)) 2 mg PO Q6H PRN meloxicam 15 mg PO DAILY metoprolol succinate ER 100 mg PO DAILY mupirocin 2% 1 appl topical BID-TID omega-3 acid ethyl esters 1 cap PO DAILY omega-3 acid ethyl esters 1 cap PO BID omeprazole 20 mg PO BID 90 days ondansetron HCl (Zofran) 4 mg PO Q8H PRN pen needle, diabetic 1 ea miscellaneous .5 times a day 30 days pregabalin 100 mg PO BEDTIME primidone 250 mg PO BID rosuvastatin 40 mg PO DAILY semaglutide (Ozempic) 2 mg (0.75 mL) subcut QWEEK sertraline 50 mg PO DAILY trazodone 25 - 50 mg (0.5 - 1 x 50 mg) PO BEDTIME PRN warfarin 5 mg PO HPI HPI T2DM: Details: Patient is a 4-year-old male with a significant past medical history hypertension, hyperlipidemia, 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 Endo: His last A1c was 8.5 He is ON Ozempic 2 mg, jardiance 25 mg. He states the last time he saw me he discontinued his insulin because he thought it was causing body aches but he realized that that is not the cause. He states that for the last month and a half he has had increase in body aches, difficulty swallowing, blood in the stool, reduced appetite, hot flashes, drenching night sweats and nighttime axillary lymphadenopathy. He states whenever he eats something he has to drink a lot of water to get it to go down. He has not been that hungry and feels full easily. He has been on Ozempic for about a year or so and states that it never caused this type of symptom. He has had to change his sheets very regularly and states that he does not sleep with any sheets because he keeps running them from all of his sweating. He has lost about 30 lb. He also is worried because he has about 8-10 basal cell carcinomas and states that he was referred from ditcher in [place] (likely Dr. Conchita rinaldi) to [facility] and states that it appears he is developing more skin cancers. He did see his PCP and had a workup for the unintentional weight loss and had a chest CT and abdominal/pelvis CT. He had a stat referral to GI but they are scheduled out until the middle of May. Metformin not tolerated with GI sx. Believes he has tried trulicity as well but cannot recall. CGM-He has not used due to falling off regularly. He states that he is getting too many hot flashes to keep a sensor on. -He states all of his bs have been around 200 He has glucose tabs and candy to correct the lows. He is on an JOVANA-inhibitor, statin and pregabalin for his neuropathy. CV: Blood pressure today in the office is 112/82.. He is on lisinopril 5 mg, metoprolol 100 mg. He is on Crestor 40 mg and Zetia 10 mg. Last LDL was 60. 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 Surgical History History of colonoscopy (~01/18/18) History of open reduction and internal fixation (ORIF) procedure History of ear surgery History of carpal tunnel surgery of left wrist History of intraocular lens implant Hx of vasectomy Hx of appendectomy Hx of hernia repair Hx of arthroscopy of knee History of left nephrectomy Family History Father Lung cancer Mother FH: ovarian cancer in first degree relative Diabetes Social History Housing: House (Lives with daughter) Alcohol intake: former Patient Tobacco Use Status: Former Tobacco user (Quite in 1989) Years Smoked: quit at 31 years old e-Cigarette/Vaping Use: Never Used Substance Use Type: Marijuana service: No Current occupational status: retired and disabled Cognitive needs: Yes (Cane and walker PRN long distances) Vision needs: Yes (Reading glasses) Physical Exam Vital Signs: Last Vital Signs Pulse 94 04/15/25 10:12 BP 112/82 04/15/25 10:12 Pulse Ox 97 04/15/25 10:12 Oxygen Delivery Method Room Air 04/15/25 10:12 BMI result Body Mass Index 31.4 Const Orientation/consciousness: patient oriented x3 HEENT Ears: hearing grossly normal bilaterally Neck Thyroid: Thyroid normal Lymphatic: no lymphadenopathy noted Resp Auscultation: clear to auscultation bilaterally Cardio Rate: regular rate Rhythm: regular rhythm Heart sounds: S1 normal heart sound present and S2 normal heart sound present Skin General skin exam: no rashes or lesions noted Neuro General: patient oriented x3, gait normal and no focal motor deficits Results Reviewed Results Reviewed: Laboratory Tests 11/11/21 09/28/24 09/28/24 11:00 11:11 11:35 Sodium Potassium Chloride Carbon Dioxide Anion Gap BUN Creatinine 1.20 POC Creatinine POC GFR Estimated GFR > 60 Glucose (Clinic) Random Glucose Hgb A1c (Clinic) 8.2 H Hemoglobin A1c % AST ALT Triglycerides Cholesterol LDL Cholesterol, Calc HDL Cholesterol Islet Cell Ab Screen NEGATIVE MALATHI Antibody <5 11/09/24 01/11/25 02/07/25 09:45 10:50 12:10 Sodium 138 Potassium 4.7 D Chloride 106 Carbon Dioxide 26 Anion Gap 11 L BUN 13 Creatinine 1.09 POC Creatinine POC GFR Estimated GFR > 60 Glucose (Clinic) 144 H Random Glucose 236 H Hgb A1c (Clinic) Hemoglobin A1c % 7.5 H 8.5 H AST 24 ALT 17 Triglycerides 217 H Cholesterol 129 LDL Cholesterol, Calc 54 HDL Cholesterol 32 L Islet Cell Ab Screen MALATHI Antibody 02/08/25 03/21/25 10:08 15:06 Sodium Potassium Chloride Carbon Dioxide Anion Gap BUN Creatinine POC Creatinine 0.9 POC GFR > 60 Estimated GFR Glucose (Clinic) 193 H Random Glucose Hgb A1c (Clinic) Hemoglobin A1c % AST ALT Triglycerides Cholesterol LDL Cholesterol, Calc HDL Cholesterol Islet Cell Ab Screen MALATHI Antibody Assessment & Plan Assessment & Plan (1) Diabetic nephropathy associated with type 2 diabetes mellitus: Code(s): E11.21 - Type 2 diabetes mellitus with diabetic nephropathy Category: Medical Plan: continue ozempic 2 mg weekly continue jardiance to 25 mg restart tresiba 20 units f/u in 3 months. (2) HTN (hypertension): Code(s): I10 - Essential (primary) hypertension Category: Medical Qualifiers: Hypertension type: unspecified Qualified Code(s): I10 - Essential (primary) hypertension Plan: wnl continue current plan (3) Unintentional weight loss: Code(s): R63.4 - Abnormal weight loss Category: Medical Plan: reviewed cts with pt He has an appointment scheduled with PCP on 05/06. Discussed with patient that it is important that it keeps this appointment. I also did message his PCP. I placed urgent referral to oncology i called gi and spoke with Dr. Goncalves team and recommended sooner appointment. They will speak with Dr. Goncalves and get back to patient. I reviewed blood in stool, difficulty swallowing, weight loss of almost 30 lbs, night sweats and lymphadenapathy. Unfortunately, [facility] and [facility] are booked out until June. I did call them myself. I did offer calling [facility] but patient does not want to drive. Orders: Referrals Hematology & Oncology Referral C44.91 - Basal cell carcinoma of skin, unspecified, R13.10 - Dysphagia, unspecified, R61 - Generalized hyperhidrosis, R63.4 - Abnormal weight loss Medications: New insulin degludec (Tresiba FlexTouch U-200 insulin) 20 units (0.1 mL) subcut BEDTIME 9 mL 3RF Coding Level of Care Code Est Pt Level 4 (62707) Complex visit Add On G2211 Diagnoses Diabetic nephropathy associated with type 2 diabetes mellitus E11.21 Hypertension, unspecified type I10 Hypertension type: unspecified Unintentional weight loss R63.4
[2025-04-15 10:26] LABS: Glucose, Whole Blood 312 mg/dL (60-115)
--- OUTSIDE RECORDS SUMMARY | 2025-04-15 12:30 | XMS_ITS | Clinical Summary ---
Author Organization [facility] Address [address] [place] [address] Phone Care Team Providers Care Manager Data Warehouse Name Role Phone Justen العلي MD Primary [...] a day. 120 tablet 11 5 Active Social History Tobacco Use Types Packs/Day Years [...] Visit [facility] Neurology [address] [place] [address] Jesse العلي MD [address] [place] [address], [address] [place] [address] Health Maintenance Due Date Last Done Comments [...] topic Medical Devices Not on file Insurance [facility] ONE CARE MEDICARE REPLACEMENT [address] [address] [address] [place] [place] [address] CARE [address] [place] [place] [place] [address] CARE MEDICARE REPLACEMENT [facility] CARE MEDICARE REPLACEMENT [facility] CARE MEDICARE REPLACEMENT Care Teams Manager Data Warehouse Relationship Specialty Start Date End Date Justen العلي MD [address] [place] [address] [place] [id number] PCP - General Internal Medicine 01/17/24 Additional Source Comments The information contained in this document represents components of the legal health record. It is not the complete legal health record.[facility]
== END 2025-04-15 11:01 | disposition home or self-care (01) ==
LOC: HO.ENCR 10:10
PROVIDERS: PCP Family Medicine; Visit Provider Physician Assistant
DX: E11.21 Type 2 diabetes mellitus with diabetic nephropathy (principal); I10 Essential (primary) hypertension; R63.4 Abnormal weight loss

== ENCOUNTER → 2025-04-15 10:10 | Outpatient (BNVA) | payer OTHER, SELFPAY | PROVIDERS: PCP Family Medicine; Visit Provider Physician Assistant | DX: E11.21 Type 2 diabetes mellitus with diabetic nephropathy (principal); E11.40 Type 2 diabetes mellitus with diabetic neuropathy, unspecified; I10 Essential (primary) hypertension; R63.4 Abnormal weight loss; C44.91 Basal cell carcinoma of skin, unspecified; R13.10 Dysphagia, unspecified; R61 Generalized hyperhidrosis | CPT/HCPCS: 82947; 99212 ==

== ENCOUNTER 2025-05-06 14:33 | Outpatient (AMB) | payer OTHER, SELFPAY ==
--- OUTSIDE RECORDS SUMMARY | 2024-03-20 08:30 | XMS_ITS ---
Author Organization [facility] Address [address] [place] [address] Care Team Providers Care Psychiatric Nursing Assistant Name Role Phone Severiano POSADAS, Justen Primary Care Provider UnavailTrevor Phan Unavailable [phone] Encounters Encounter Location Date Provider Diagnosis [address] [address] 03/20/2024 Trevor Daniels Plan Of Treatment Next Appt Details Provider Name:Trevor Daniels , 05/07/2025 11:15:00 AM, [address] [place], [address], Progress Notes * Octavio RICCIDOB: [birth year] (64 yo M)Acc No.[id number]:03/20/2024 Progress Note Patient: Keo BENTLEYOctavio Provider: Eze Daniels DPM :1960 A ge:63 Y S ex:Male Date:03/20/2024 Address:[address] [place], [place] [id number] Pcp:Justen العلي MD Subjective: * Chief Complaints: * * Medical History: Objective: * Vitals: Assessment: Plan: * Treatment: * Images: * The named appointment provid er may or may not be the originator of this progress note, and it is not deemed complete until electronically signed by the appointment provider. Sign off status: Pending * Provider: Eze Daniels DPM Date: 05/20/2023 Generated for Taty juarez/Lisa/Fernandez on: 1 07/07/2024 05:54 PM EST
--- OUTSIDE RECORDS SUMMARY | 2024-05-04 08:45 | XMS_ITS ---
Author Organization [facility] Address [address] [place] [address] Care Team Providers Care Fire Inspector Name Role Phone Severiano POSADAS, Justen Primary Care Provider UnavailTrevor Phan Unavailable [phone] Encounters Encounter Location Date Provider Diagnosis [address] [address] 05/04/2024 Trevor Daniels Plan Of Treatment Next Appt Details Provider Name:Trevor Daniels , 05/07/2025 11:15:00 AM, [address] [place], [address], Progress Notes * Octavio RICCIDOB: [birth year] (64 yo M)Acc No.[id number]:05/04/2024 Progress Note Patient: Keo BENTLEYOctavio Provider: Eze Daniels DPM :1960 A ge:63 Y S ex:Male Date:05/04/2024 Address:[address] [place], [place] [phone] Pcp:Justen العلي MD Subjective: * Chief Complaints: * * Medical History: Objective: * Vitals: Assessment: Plan: * Treatment: * Images: * The named appointment provid er may or may not be the originator of this progress note, and it is not deemed complete until electronically signed by the appointment provider. Sign off status: Pending * Provider: Eze Daniels DPM Date: 07/05/2023 Generated for Taty juarez/Lisa/Fernandez on: 1 07/07/2024 05:55 PM EST
--- OUTSIDE RECORDS SUMMARY | 2024-06-15 08:45 | XMS_ITS ---
Author Organization [facility] Address [address] [place] [address] Care Team Providers Care Credit Union Teller Name Role Phone Severiano POSADAS, Justen Primary Care Provider UnavailTrevor Phan Unavailable [phone] REASON FOR VISIT Seen Sooner Encounters Encounter Location Date Provider Diagnosis [facility] [address] [place] [address] 06/15/2024 Trevor Daniels Plan Of Treatment Next Appt Details Provider Name:Trevor Daniels , 05/07/2025 11:15:00 AM, [address] [place], [address], Progress Notes * Octavio RICCIDOB: [birth year] (64 yo M)Acc No.[id number]:06/15/2024 Progress Note Patient: Keo BENTLEYOctavio Provider: Eze Daniels DPM :1960 A ge:63 Y S ex:Male Date:06/15/2024 Address:[address] [place], [place] [phone] Pcp:Justen العلي MD Subjective: * Chief Complaints: * 1 . Seen Sooner. * Medical History: Objective: * Vitals: Assessment: Plan: * Treatment: * Images: * The named appointment provid er may or may not be the originator of this progress note, and it is not deemed complete until electronically signed by the appointment provider. Sign off status: Pending * Provider: Eze Daniels DPM Date: 0 06/15/2024 Generated for Taty Varma/Fernandez on: 1 07/07/2024 05:55 PM EST
--- NOTE | 2025-05-06 14:37 | A.OFFPC_ITS ---
Vital Signs 05/06/25 14:49 Height 5 ft 9 in Weight 96.162 kg BMI 31.3 BP 110/70 Blood Pressure Location Lt brachial Pulse 81 Pulse Source Pulse Oximeter Temp 97.6 F Temp Source Temporal Artery Scan Pulse Oximetry (%) 97 Oxygen Delivery Method Room Air Comment WT per patient Intake Visit Reasons: 4 month f/u University Administrative Assistant Required: No Accompanied by: Self / Same As Patient Allergies morphine (MORPHINE) Allergy (Severe, Verified 05/06/25 14:37) PT STATES FLAT-LINED -WAS IN W/CP Tobacco use date assessed: 01/09/25 Dental Screening Dental Screen Date: 01/09/25 HPI HPI Comments History of Present Illness Details 64-year-old male with remote history of DVT/PE, 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 Unintentional weight loss- has lost about 22 lb unintentionally over the last year. He does endorse some dysphagia and reflux as well as nocturnal sweats and facial flushing but no drenching sweats. He does consume a healthy diabetic diet and does not restrict food though does occasionally experience some anorexia and meals are small. He does deny any fevers, chills, sore throat, dysphagia, odynophagia, reflux, nausea, vomiting, abdominal pain, change in bowel habits-does endorse chronic diarrhea managed with Imodium, melena, hematochezia, dysuria, hematuria, urinary retention, rectal pain. Headaches, vision changes, weakness/paresthesias. No cough, shortness of breath, wheezing, chest pains. No syncope. Has upcoming appointment with Gastroenterology. He is overdue for colonoscopy with history of tubular adenoma. He has been experiencing bloody stool. CT of the chest did show prominent mediastinal nodes but no enlarged nose. Oncology did review his case recommending pulmonology follow-up and gastroenterology follow-up. -history of cigarette smoking, quit 33 y ears ago -last screening colonoscopy 01/2018 with 5 year follow-up advised- Dr. Goncalves -PSA normal -no history of Parkinson's or cognitive impairment FH: Lung cancer in father Ovarian cancer in mother Chronic conditions: DVT/PE-right lower extremity about 15 years ago. Previously following with Dr. Collins at [facility]. Currently on coumadin. INRs at home. Last 1.6. [facility] coumadin clinic Type 2 diabetes-complicated by polyneuropathy and nephropathy. Last hemoglobin A1c worsened to 8.5%. Following with endocrinology. Currently on Tresiba 30 units at bedtime and Ozempic 2 mg weekly. Essential tremor/seizures-worsening. Tremor in voice as well. Now requiring the use of bubble packs. On primidone and Lyrica. Neuro at [facility]. No history of Parkinson's disease or cognitive impairment. Now worsening memory. Next appt Hypercholesterolemia-on Zetia and rosuvastatin Hypertension-on metoprolol, lisinopril-controlled Basal cell carcinoma-newly diagnosed. On left nose, back, chest, scalp. Following with Dr. Arango and [facility] for Mohs procedure. NOw with stuck on lesions. Depression/anxiety-Wellbutrin 150 mg added at last visit. Continues on sertraline as well as trazodone. Improved symptoms, however appetite has not improved ROS: See HPI EXAM: Constitutional - Awake and Alert, No apparent distress Eyes - PERRL Cardiovascular - S1S2, RRR, No edema Neck - no adenopathy Respiratory - Normal lung expansion, Normal respiratory effort, No respiratory distress, CTA bilaterally Extremities - no calf tenderness bilaterally, no swelling Skin - Warm/Dry Neurological - Alert & oriented x3, tremulous voice Psychological - Appropriate affect [facility] Medical History (Updated 05/06/25 @ 14:57 by MARIELOS Forrest) Night sweat Unintentional weight loss Major depressive disorder Vitamin D deficiency HTN (hypertension) HLD (hyperlipidemia) T2DM (type 2 diabetes mellitus) Diabetes type 2, uncontrolled Obesity (BMI 30-39.9) Dyslipidemia Diabetic nephropathy associated with type 2 diabetes mellitus Diabetic neuropathy associated with type 2 diabetes mellitus prison (current) use of insulin Surgical History History of colonoscopy (~01/18/18) History of open reduction and internal fixation (ORIF) procedure History of ear surgery History of carpal tunnel surgery of left wrist History of intraocular lens implant Hx of vasectomy Hx of appendectomy Hx of hernia repair Hx of arthroscopy of knee History of left nephrectomy Family History Father Lung cancer Mother FH: ovarian cancer in first degree relative Diabetes Social History Housing: House (Lives with daughter) Alcohol intake: former Patient Tobacco Use Status: Former Tobacco user (Quite in 1989) Years Smoked: quit at 31 years old e-Cigarette/Vaping Use: Never Used Substance Use Type: Marijuana service: No Current occupational status: retired and disabled Cognitive needs: Yes (Cane and walker PRN long distances) Vision needs: Yes (Reading glasses) Questionnaire Thrive Questionnaire Date Thrive assessed: 01/09/25 MALATHI-7 AMB Questionnaire MALATHI-7 Date MALATHI - 7 assessed: 01/09/25 Source: Developed by Drs. Clark Elizondo, Sigrid Joshi, Cristiano Pisano and colleagues, with an educational julisa from [employer] Physical exam (Primary Care) Vital Signs: Last Vital Signs Temp 97.6 F 05/06/25 14:49 Pulse 81 05/06/25 14:49 BP 110/70 05/06/25 14:49 Pulse Ox 97 05/06/25 14:49 Oxygen Delivery Method Room Air 05/06/25 14:49 BMI result Body Mass Index 31.3 Tobacco/Smoking Status: Tobacco use Status Tobacco use date assessed 01/09/25 05/06/25 14:39 Patient Tobacco Use Status Former Tobacco user (Quite 05/06/25 14:39 in 1989) e-Cigarette/Vaping Use Never Used 05/06/25 14:39 Thrive Assessment: Date of Thrive Assessment Date Thrive assessed 01/09/25 05/06/25 14:39 Coding Level of Care Code Est Pt Level 4 (53129) Add On Problem Visit Only Diagnoses Diabetic nephropathy associated with type 2 diabetes mellitus E11.21 Hyperlipidemia, unspecified hyperlipidemia type E78.5 Hyperlipidemia type: unspecified Hypertension, unspecified type I10 Hypertension type: unspecified Major depressive disorder F32.9 Unintentional weight loss R63.4 Assessment & Plan Assessment & Plan (1) Diabetic nephropathy associated with type 2 diabetes mellitus: Code(s): E11.21 - Type 2 diabetes mellitus with diabetic nephropathy Category: Medical Plan: Uncontrolled. Updated hemoglobin A1c is ordered. Continue Tresiba 30 units, Jardiance, Ozempic. Diabetic diet. Continue with annual eye exams. Follow-up with endocrinology as scheduled (2) HLD (hyperlipidemia): Code(s): E78.5 - Hyperlipidemia, unspecified Category: Medical Qualifiers: Hyperlipidemia type: unspecified Qualified Code(s): E78.5 - Hyperlipidemia, unspecified Plan: Lipid panel ordered. Continue rosuvastatin 40 mg daily (3) HTN (hypertension): Code(s): I10 - Essential (primary) hypertension Category: Medical Qualifiers: Hypertension type: unspecified Qualified Code(s): I10 - Essential (primary) hypertension Plan: At goal. Continue lisinopril, metoprolol (4) Major depressive disorder: Code(s): F32.9 - Major depressive disorder, single episode, unspecified Category: Medical Plan: Stable. Continue current therapies (5) Unintentional weight loss: Code(s): R63.4 - Abnormal weight loss Category: Medical Plan: Has lost some weight since last visit but seems to be stabilizing overall. He does have upcoming appointment with Gastroenterology next week which she is advised to attend. Case was reviewed by oncology recommending pulmonology referral given prominent lymph nodes though noting that there are no enlarged lymph nodes. Continue medications as prescribed. He is on Ozempic but has been on this for over 2 years, long before unintentional weight loss did statin. Plan Follow-up in the office in 4 months. Labs to be completed today Orders: Orders Microalbumin, Random (w Creat) Today E11.21 - Type 2 diabetes mellitus with diabetic nephropathy, E78.5 - Hyperlipidemia, unspecified, F32.9 - Major depressive disorder, single episode, unspecified, I10 - Essential (primary) h ypertension Hemoglobin A1c Today E11.21 - Type 2 diabetes mellitus with diabetic nephropathy, E78.5 - Hyperlipidemia, unspecified, F32.9 - Major depressive disorder, single episode, unspecified, I10 - Essential (primary) hypertension Lipid Panel Today E11.21 - Type 2 diabetes mellitus with diabetic nephropathy, E78.5 - Hyperlipidemia, unspecified, F32.9 - Major depressive disorder, single episode, unspecified, I10 - Essential (primary) hypertension Basic Metabolic Panel Today E11.21 - Type 2 diabetes mellitus with diabetic nephropathy, E78.5 - Hyperlipidemia, unspecified, F32.9 - Major depressive disorder, single episode, unspecified, I10 - Essential (primary) hypertension Vitamin D 25-OH Total Today E55.9 - Vitamin D deficiency, unspecified Referrals Pulmonology Referral R91.8 - Other nonspecific abnormal finding of lung field
[2025-05-06 14:49] VITALS: BP 110/70; PULSE 81; TEMP 36.4; O2SAT 97; BMI 31.3
--- OUTSIDE RECORDS SUMMARY | 2025-05-06 17:56 | XMS_ITS | Patient Health Record ---
Author Organization [facility] Address [address] [place] [address] Care Team Providers Care Lubrication Worker Name Role Phone COLUMBA SHAFFER Primary Care Provider Clark Salgado Unavailable [phone] Reason For Referral No Information Medications Medication SIG (Take, Route, Frequency, Duration) Notes Start Date End Date Status Leflunomide 20 MG Tablet 1 tablet Orally Once a day Active Ventolin HFA 108 (90 Base) MCG/ACT Aerosol Solution 2 puffs as needed Inhalation every 4 hours as needed Active Metoprolol Succinate 100 mg 1 tablet orally once a day Active Sertraline HCl 50 MG Tablet 1 tablet Orally Once a day Active NovoLOG 100 UNIT/ML Solution 4 units Subcutaneous tid Active Methotrexate 20 mg 1 tablet Oral once a day Not-Taking/PRN Coumadin 5 MG Tablet 1 tablet Orally as directed Active Rosuvastatin Calcium 20 MG Tablet 1 tablet Orally Once a day Active Aspir-81 81 MG Tablet Delayed Release 1 tablet Orally Once a day Active Primidone 50 MG Tablet 1 tablet Orally o nce a day Active OXcarbazepine Active Meloxicam 15 MG Tablet 1 capsule Orally Once a day Active Lisinopril 5 MG Tablet 1 tablet Orally O nce a day Active Remicade 100 MG Solution Reconstituted as directed Intravenous monthy Active Lyrica 50 MG Capsule 1 capsule Orally On ce a day Active Lantus 100 UNIT/ML Solution 40 units Subcutaneous bedtime Active Lansoprazole 30 MG Capsule Delayed Release 1 capsule Orally twice a day Active Lorazepam 0.5 mg 1 tablet Oral qd Active Social History Social History Drugs/Alcohol: Social Info Question Answer Notes Alcohol Screen Did you have a drink containing alcohol in the past year? 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 Section Notes: Nonsmoker; rare alcohol Nonsmoker except some mariju smitha nightly; no alcohol Problems Problem Type SNOMED Code ICD Code Onset Dates Problem Status W/U Status Risk Notes Problem Screening for malignant neoplasm of colon (470686520) Encounter for screening for malignant neoplasm of colon (Z12.11) Active confirmed Problem History of adenomatous polyp of colon (072379575) History of adenomatous polyp of colon (Z86.010) Active confirmed Problem Gastroesophageal reflux disease without esophagitis (093076796) Gastroesophageal reflux disease without esophagitis (K21.9) Active confirmed Problem Mckinney's esophagus (614582495) Barretts esophagus without dysplasia (K22.70) Active confirmed Problem Diarrhea (71052675) Diarrhea, unspecified type (R19.7) Active confirmed Encounters Encounter Location Date Provider Diagnosis [facility] [address] [facility] [address] [place] [id number] 04/15/2025 Clark Goncalves Plan Of Treatment Pending Test Test Name Order Date CLOSTRIDIUM DIFF TOXIN A&B (C DIFF) 11/13 STOOL WBC 11/24/2017 GIARDIA AG, STOOL EIA 11/24/2017 OVA & PARASITES (O&P) 11/24/2017 CULTURE, STOOL 11/24/2017 Future Test Test Name Order Date UPPER GI ENDOSCOPY 08/24/2011 COLONOSCOPY 08/24/2011 UPPER GI ENDOSCOPY 11/24/2017 COLONOSCOPY 11/24/2017 Next Appt Details Provider Name:Clark Goncalves , 05/15/2025 02:40:00 PM, [address] [place] [address], [facility], [place], [address], Provider Name:Clark Goncalves , 06/05/2025 03:00:00 PM, [address] [place] [address], [place] [address], [place], [address], Insurance Providers Payer Name Payer Address Payer Phone Subscriber Number Group Number Insured Name Patient Relationship to Insured Coverage Start Date Coverage End Date [facility] [address] Attn Claims MARIELOS Barbosa [id number] [phone] [id number] GARY RICCI Self - patient is the insured MEDICARE OF [place] [address] [place] URI[place] [id number] GARY RICCI Self - patient is the insured Medical (General) History Medical History History ICD Code Blood clots in RLE removed by Dr. Arzola at [facility] 12/2009 2 PR's in 2000 with stents-no problems s sofia [...]
--- OUTSIDE RECORDS SUMMARY | 2025-05-06 17:56 | XMS_ITS | Patient Health Record ---
[facility] Address [address] [place] [address] Care Team Providers Care Early Breastfeeding Care Specialist Name Role Phone Justen العلي MD Primary Care Provider Unavailab Trevor Amador Unavailable [phone] Allergies Allergen (clinical drug ingredient) Drug/Non Drug Allergy documented on EMR Reaction Allergy Type Onset Date Status morphine Morphine Drop Drug Allergy Active Results Component Value Reference Range Notes HEMOGLOBIN A1C (GLYCOHEMOGLO BIN) Reviewed date:10/12/2024 11:34:24 [...] Problem Acquired hammer toe of right foot (0407901194053012 ) Other hammer toe(s) (acquired), right foot (M20.41) Active confirmed [facility] Problem Acquired hammer toe of left foot (0753323007163557 ) Other hammer toe(s) (acquired), left foot (M20.42) Active confirmed Response to treatment, Improvemen t Problem Polyneuropathy due to type 2 diabetes mellitus (882490871) Type 2 diabetes mellitus with diabetic polyneuropathy (E11.42) Active confirmed Vital Signs Blood pressure diastolic 65 mm Hg 01/18/2025 Height 5ft 9in in 01/18/2025 Blood pressure systolic 126 mm Hg 01/18/2025 Weight 217 lbs 01/18/2025 BMI 32.04 kg/m2 01/18/2025 Procedures Procedure Date Ordered Date Performed Result Body Sit e 81258-VTIBYVN NAIL, 6 OR MORE 07/10/2024 N/A 60493-FOTA SKIN LESIONS, OVER 4 07/10/2024 N/A 51289-CNKLSPQ NAIL, 6 OR MORE 10/12/2024 N/A 21339-CDGS SKIN LESIONS, OVER 4 10/12/2024 N/A 16335-NPEZQGX NAIL, 6 OR MORE 01/18/2025 N/A 70163-UTOH SKIN LESIONS, OVER 4 01/18/2025 N/A Encounters Encounter Location Date Provider Diagnosis [address] [address] 07/10/2024 Trevorvalerio Daniels Type 2 diabetes mellitus with diabetic polyneuropathy E11.42 ; Tinea unguium B35.1 ; Other hammer toe(s) (acquired), right foot M20.41 and Other hammer toe(s) (acquired), left foot M20.[address] [address] 10/12/2024 Trevor Frances Type 2 diabetes mellitus with diabetic polyneuropathy E11.42 and Tinea unguium B35.[address] [address] 01/18/2025 Trevor Frances Type 2 diabetes mellitus with [...] Treatment Pending Test Test Name Order Date 22700-HHGVLVC NAIL, 6 OR MORE 02/20/2021 09619-INIIWIN NAIL, 6 OR MORE 06/12/2021 43700-VUECBUX NAIL, 6 OR MORE 08/21/2021 13657-TTMSJEJ NAIL, 6 OR MORE 11/10/2021 96675-FUWZFCH NAIL, 6 OR MORE 01/19/2022 58812-LZOETVS NAIL, 6 OR MORE 03/30/2022 25160-BTOKBPR NAIL, 6 OR MORE 08/27/2022 43848-YLZCHID NAIL, 6 OR MORE 11/26/2022 71435-EEUUJSG NAIL, 6 OR MORE 02/15/2023 33814-ZUGFOYN NAIL, 6 OR MORE 04/29/2023 76676-WQJAVKZ NAIL, 6 OR MORE 07/12/2023 38403-GVKOHVB NAIL, 6 OR MORE 12/20/2023 88147-NXFSVHK NAIL, 6 OR MORE 07/10/2024 81236-SFRPUFI NAIL, 6 OR MORE 10/12/2024 66877-KNKFAZT NAIL, 6 OR MORE 01/18/2025 80906-UZPE SKIN LESIONS, OVER 4 01/19/20 67165-YFII SKIN LESIONS, OVER 4 10/13/19 51785-WUHQ SKIN LESIONS, OVER 4 07/10/19 33464-NJSH SKIN LESIONS, OVER 4 12/20/19 57401-LHGK SKIN LESIONS, OVER 4 07/12/19 92831-LMVR SKIN LESIONS, OVER 4 04/29/20 34891-KGZY SKIN LESIONS, OVER 4 02/16/20 62625-QHXC SKIN LESIONS, OVER 4 11/27/19 83316-JHGJ SKIN LESIONS, OVER 4 08/28/19 28190-VVFX SKIN LESIONS, OVER 4 03/30/20 52946-OLCM SKIN LESIONS, OVER 4 01/20/20 93666-SVPA SKIN LESIONS, OVER 4 11/11/19 43729-AGTM SKIN LESIONS, OVER 4 08/22/19 05097-NRTG SKIN LESIONS, OVER 4 02/21/20 71245-ZGZJ SKIN LESIONS, OVER 4 06/12/19 Next Appt Details Provider Name:Trevor Daniels , 05/07/2025 11:15:00 AM, [address] [place] [address], [phone], Insurance Providers Payer Name Payer Address Payer Phone Subscriber Number Group Number Insured Name Patient Relationship to Insured Coverage Start Date Coverage End Date [facility] [employer] Claims [address] [place] [phone] [id number] Octavio Elder Self - patient is the insured Medical (General) History Medical History History ICD Code Angina Anxiety Back,Hip,and Knee pain Cataracts Epilepsy Heart disease High blood pressure Kidney disease Numbness Poor circulation Psoriasis/eczema type II diabetes Surgical History Surgery Date(Month/Year) Eye Surgery - Glaucoma 08/09/2022
--- OUTSIDE RECORDS SUMMARY | 2025-05-06 17:56 | XMS_ITS | Clinical Summary ---
Author Organization [facility] Facility Address [address] [place] [address] Care Team Providers Care Language Asst Name Role Phone Justen العلي MD Primary Care Provider [phone] Allergies Active Allergy Reactions Criticality Noted Date [...] [facility] ([id number]) [place] [facility] ([id number]) [place] Care Teams Language Asst Relationship Specialty Start Date End Date Justen العلي MD [address] [place] [address] [place] [address] PCP - General Internal Medicine 09/16/21
== END 2025-05-06 15:16 | disposition home or self-care (01) ==
LOC: HO.HMCHD 14:34
PROVIDERS: PCP Family Medicine; Visit Provider Physician Assistant
DX: E11.21 Type 2 diabetes mellitus with diabetic nephropathy (principal); E78.5 Hyperlipidemia, unspecified; I10 Essential (primary) hypertension; F32.9 Major depressive disorder, single episode, unspecified; R63.4 Abnormal weight loss

== ENCOUNTER → 2025-05-06 14:33 | Outpatient (BNVA) | payer OTHER, SELFPAY | PROVIDERS: PCP Family Medicine; Visit Provider Physician Assistant | DX: E11.21 Type 2 diabetes mellitus with diabetic nephropathy (principal); E78.5 Hyperlipidemia, unspecified; I10 Essential (primary) hypertension; F32.9 Major depressive disorder, single episode, unspecified; F41.9 Anxiety disorder, unspecified; R63.4 Abnormal weight loss; R91.8 Other nonspecific abnormal finding of lung field; G25.0 Essential tremor; R56.9 Unspecified convulsions; C44.311 Basal cell carcinoma of skin of nose; C44.519 Basal cell carcinoma of skin of other part of trunk; C44.41 Basal cell carcinoma of skin of scalp and neck; Z86.718 Personal history of other venous thrombosis and embolism; Z86.711 Personal history of pulmonary embolism; Z79.01 Long term (current) use of anticoagulants; Z79.4 Long term (current) use of insulin; Z79.84 Long term (current) use of oral hypoglycemic drugs; Z79.85 Long-term (current) use of injectable non-insulin antidiabetic drugs; Z79.899 Other long term (current) drug therapy | CPT/HCPCS: 99212 ==